=== PATIENT | female | born 1970 | race Caucasian/White ===

== ENCOUNTER 2016-04-13 10:36 | Emergency (ER) | payer OTHER ==
[~2016-04-13] VITALS: Ht 165.1 cm; Wt 92.9 kg
[~2016-04-13 10:36] MED LIST: DOXY100C2 PO
[2016-04-13 10:41] VITALS: TEMP 36.5; Ht 165.1 cm; Wt 92.9 kg
[2016-04-13 11:36] VITALS: BP 141/76; PULSE 76; O2SAT 97
--- NOTE | 2016-04-14 07:50 | EMERGENCY ROOM VISIT NOTE ---
History First contact with patient: 10:56 Chief Complaint: KNEEPAIN Stated Complaint: RT KNEE/ANKLE PAIN W/NUMBNESS IN TOES History of Present Illness The patient is a 45 year old female who presents to the Emergency Room with complaints of medial right knee pain extending to the medial gunn and great toe. She notes a decrease sensation in the dorsum of the great toe and medial foot, but no true numbness. No trauma that she is aware. She denies any knee swelling. No loss of motion. She does have a history of lumbar back issues but denies any current pain. Pain does not seem to be worse with weight- bearing or activity. No prior history of similar discomfort. No other complaints. No treatment. Review of Systems REVIEW OF SYSTEM: HEENT: No dizziness, visual problems, hearing loss, or tinnitus. There is no difficulty swallowing and no oral lesions are present. PULMONARY: No cough, shortness of breath, sputum production or hemoptysis. CARDIOVASCULAR: No chest pain, palpitations, shortness of breath or peripheral edema. GASTROINTESTINAL: No diarrhea, constipation, nausea, vomiting, or abdominal pain. GENITOURINARY: No dysuria, frequency, urgency or nocturia. NEUROLOGIC: No weakness, muscle tenderness, epilepsy or history of neurological problems. MUSCULOSKELETAL: No history of joint tenderness/swelling. No history of arthritis or arthralgias. SKIN: No rashes or lesions. PSYCHIATRIC: Positive history of depression. ENDOCRINE: No history of diabetes, thyroid disorders, or abnormal hair growth. Past Medical/Surgical History Medical Problems: (1) Depression (2) Hysterectomy (3) Kidney stone Significant for hypertension, skin problems, history of pneumonia, asthma. previous surgeries: Hysterectomy Family History Diabetes mellitus FH: back pain Also history of heart disease, hypertension, cancer, lung disease, gallbladder disease, kidney stones, and seizures. Father is . Social History Smoking Status: Current Every Day Smoker Smokeless Tobacco Use: No Alcohol Use: none Drug Use: none Marital Status: Housing Status: lives with family Occupation Status: unemployed Current/Historical Medications No Active Prescriptions or Reported Meds Allergies Coded Allergies: Hydromorphone (Verified Adverse Reaction, Mild, LIGHTHEADED AND VOMITING, 01/30/16) Physical Exam Vital Signs Date Time Temp Pulse Resp B/P Pulse Ox O2 Delivery O2 Flow Rate FiO2 04/13/16 11:36 76 18 141/76 97 1/7/17 10:41 36.5 88 16 158/84 96 Room Air Pain Rating (0-10): 7.0 Physical Exam Gen.: Well-developed, well-nourished, middle-aged white female, in no acute distress. Sitting on a bed. Alert and oriented. Skin:Warm and dry with good turgor. No rashes or lesions. No ecchymosis or erythema. The patient is not diaphoretic. No abrasions. Musculoskeletal: Right knee evaluation shows no intra-articular effusion. No redness or warmth. Stable collateral ligaments. Stable cruciate ligaments. No pain with palpation over the medial or lateral joint line. She does have some discomfort with palpation over her biceps femoris tendon. No pain with circumduction testing or Sammie testing. Strength is 5/5 quad tone. She is able to form a straight leg raise. Intact motor function of the ankle. No discomfort with palpation over the greater trochanter. Neurologic: Gross sensation is intact across the right leg by soft touch. Decreased subjective sensation across the L4 dermatome on the gunn and dorsal foot. Peripheral pulses are 2+. Medical Decision & Procedures ED Course Patient was educated regarding today's findings. Conservative care measures were discussed. She was reassured that I do not suspect her symptoms to be related to her. She has more radicular type symptoms and they're likely coming from the L4 nerve root on the right side. Patient may benefit from physical therapy. She will follow-up with her spine doctor to discuss further care. She may use Aleve 2 tablets twice a day with food to start. Option of prednisone was also discussed. Return to the ED for any worsening symptoms, or loss of bowel or bladder control. Medical Decision Possibility of disc injury, spondylolisthesis, spondylolysis, meniscal injury, ligamentous injury, and sciatica were considered, among others Impression Primary Impression: Lumbar radiculopathy, right Departure Information Dispostion Home / Self-Care Condition GOOD Prescriptions No Active Prescriptions or Reported Meds Referrals Sreedhar Dee D.O. Forms HOME CARE DOCUMENTATION FORM, TYLENOL USE, IMPORTANT VISIT INFORMATION Patient Instructions A Signature Page, [facility] Additional Instructions Aleve 2 tablets twice a day with food [facility] to discuss physical therapy referral Return to the ED for any acute changes or worsening of symptoms
== END 2016-04-13 11:37 | disposition home or self-care (01) ==
LOC: C.EDB 10:38 → C.EDD 11:37
DX: M54.16 Radiculopathy, lumbar region (principal); I10 Essential (primary) hypertension; F32.9 Major depressive disorder, single episode, unspecified; J45.909 Unspecified asthma, uncomplicated; F17.200 Nicotine dependence, unspecified, uncomplicated; Z87.442 Personal history of urinary calculi; Z90.710 Acquired absence of both cervix and uterus; Z88.5 Allergy status to narcotic agent; Z83.3 Family history of diabetes mellitus; Z82.49 Family history of ischemic heart disease and other diseases of the circulatory system; Z83.79 Family history of other diseases of the digestive system; Z82.0 Family history of epilepsy and other diseases of the nervous system; Z80.9 Family history of malignant neoplasm, unspecified

== ENCOUNTER 2016-04-17 15:52 | Emergency (ER) | payer OTHER ==
[~2016-04-17] VITALS: Ht 165.1 cm; Wt 92.1 kg
[2016-04-17 15:59] VITALS: TEMP 36.6; Ht 165.1 cm; Wt 92.1 kg
[2016-04-17 17:15] VITALS: O2SAT 97
[2016-04-17 17:30] LABS: HEMATOCRIT 44.2 % (37-47); MEAN CELL VOLUME 83.7 fL (80-100); MEAN CORPUSCULAR HGB CONC 34.6 g/dl (32-36); MEAN PLATELET VOLUME 10.5 fL (7.4-10.4); PLATELET COUNT 197 K/uL (130-400); RED BLOOD COUNT 5.28 M/uL (4.2-5.4); WHITE BLOOD COUNT 6.57 K/uL (4.8-10.8)
[2016-04-17] MEDS ORDERED: GI COCKTAIL PO STA (17:36)
[2016-04-17 17:40] LABS: PROTHROMBIN TIME (PATIENT) 10.5 SECONDS (9.0-12.0)
[2016-04-17] MEDS ORDERED: ALUMINUM/MAGNESIUM SUSP 30 ML UDC ONE (17:46)
[2016-04-17] MEDS ORDERED: LIDOCAINE HCL 2% VISC SOLN 20 ML UDC ONE (17:46)
--- NOTE | 2016-04-17 17:50 | DIAGNOSTIC IMAGING REPORT ---
CHEST ONE VIEW PORTABLE HISTORY: Atypical chest pain. Short of breath. COMPARISON: Chest 07/14/2015. FINDINGS: The lungs are clear. Cardiac silhouette is normal in size. No pleural effusions. No pneumothorax. IMPRESSION: No acute process. Electronically signed by: Chintan Billy M.D. 04/17/2016 5:48 PM Dictated Date/Time: 04/17/2016 5:46 PM
[2016-04-17 17:51] LABS: ALT/SGPT 21 U/L (12-78); BLOOD UREA NITROGEN 13 mg/dl (7-18); BUN/CREATININE RATIO 13.1 (10-20); CALCIUM 9.6 mg/dl (8.5-10.1); CARBON DIOXIDE 26 mmol/L (21-32); CHLORIDE 106 mmol/L (98-107); GLUCOSE 94 mg/dl (70-99); SODIUM 142 mmol/L (136-145)
[2016-04-17 17:55] LABS: ALB/GLOB RATIO 1.1 (0.9-2); ALKALINE PHOSPHATASE 88 U/L (45-117); AST/SGOT 18 U/L (15-37)
[2016-04-17] MEDS ORDERED: HYDROCODONE/ACETAMOPHEN 5/325MG TAB PO STA (20:17)
[2016-04-17] MEDS ORDERED: NORCO 5/325MG HOME PACK PO ONE (20:30)
[2016-04-17 20:48] VITALS: BP 122/88; PULSE 62; O2SAT 96
--- NOTE | 2016-04-17 22:43 | EMERGENCY ROOM VISIT NOTE ---
History Report prepared by Leonela: Hua Barry Under the Supervision of: Dr. Case Alston M.D. First contact with patient: 17:31 Chief Complaint: CHEST PAIN Stated Complaint: CHEST PAIN, SOB, NUMBNESS, NAUSEA Nursing Triage Summary: Pt stated that she has been experincing chest pain since last evening. Pt thought it was just indigestion and took prilosec. Chest pain was not relieved. Pt states the pain is an 8 out of 10 feels stabbing. Pt stated the pain radiates to her left shoulder and her left arm feels numb. Pt also states that she has nausea. History of Present Illness The patient is a 45 year old female who presents to the Emergency Room with complaints of constant stabbing chest pain starting a couple days ago. The patient currently rates her discomfort as an 8/10 in severity. The patient states that she is additionally having left arm and shoulder pain as well. The patient states that she thought it was indigestion, and she took Rolaids. Pt denies LOC, headache, fevers, chills, diaphoresis, visual changes, neck pain, breathing difficulties, nausea, vomiting, abdominal pain, back pain, melena, hematochezia, urinary symptoms, numbness, weakness, lymphadenopathy, rash, or other complaints. Source of History: patient Onset: a couple days ago Position: chest Symptom Intensity: 8/10 Quality: stabbing Timing: constant Note: Associated Symptoms: Left shoulder and left arm pain Review of Systems See HPI for pertinent positives and negatives. A total of ten systems were reviewed and were otherwise negative. Past Medical & Surgical Medical Problems: (1) Depression (2) Hysterectomy (3) Kidney stone Family History Cancer Diabetes mellitus FH: back pain Gallbladder disease Heart disease Hypertension Kidney disease Kidney stones Lung disease Seizures Social History Smoking Status: Current Every Day Smoker Alcohol Use: none Drug Use: none Marital Status: Housing Status: lives with family Occupation Status: unemployed Current/Historical Medications No Active Prescriptions or Reported Meds Allergies Coded Allergies: Hydromorphone (Verified Adverse Reaction, Mild, LIGHTHEADED AND VOMITING, 04/17/16) Physical Exam Vital Signs Date Time Temp Pulse Resp B/P Pulse Ox O2 Delivery O2 Flow Rate FiO2 04/17/16 20:48 62 21 122/88 96 Room Air 04/17/16 19:28 56 22 143/80 97 Room Air 04/17/16 17:53 59 153/82 95 Room Air 04/17/16 17:31 97 Room Air 04/17/16 17:25 58 04/17/16 17:15 97 Room Air 04/17/16 17:12 98 Room Air 04/17/16 15:59 36.6 61 18 169/100 98 Room Air Physical Exam GENERAL: Awake, alert, well-appearing, in no distress HENT: Normocephalic, atraumatic. Oropharynx unremarkable. EYES: Normal conjunctiva. Sclera non-icteric. NECK: Supple. No nuchal rigidity. FROM. No JVD. RESPIRATORY: Clear to auscultation. CARDIAC: Regular rate, normal rhythm. Extremities warm and well perfused. Pulses equal. ABDOMEN: Soft, non-distended. No tenderness to palpation. No rebound or guarding. No masses. RECTAL: Deferred. MUSCULOSKELETAL: Chest examination reveals no tenderness. The back is symmetrical on inspection without obvious abnormality. There is no CVA tenderness to palpation. No joint edema. LOWER EXTREMITIES: Calves are equal size bilaterally and non-tender. No edema. No discoloration. NEURO: Normal sensorium. No sensory or motor deficits noted. SKIN: No rash or jaundice noted. Medical Decision & Procedures ER Provider Diagnostic Interpretation: X-ray: Per my interpretation, radiologist review. CHEST ONE VIEW PORTABLE HISTORY: Atypical chest pain. Short of breath. COMPARISON: Chest 07/14/2015. FINDINGS: The lungs are clear. Cardiac silhouette is normal in size. No pleural effusions. No pneumothorax. IMPRESSION: No acute process. Electronically signed by: Chintan Billy M.D. 04/17/2016 5:48 PM Dictated Date/Time: 04/17/2016 5:46 PM Laboratory Results 04/17/16 17:16 04/17/16 17:16 Test 04/17/16 17:16 04/17/16 17:20 04/17/16 18:51 Red Blood Count 5.28 M/uL (4.2-5.4) Mean Corpuscular Volume 83.7 fL (80-100) Mean Corpuscular Hemoglobin 29.0 pg (25-34) Mean Corpuscular Hemoglobin Concent 34.6 g/dl (32-36) RDW Standard Deviation 39.0 fL (36.4-46.3) RDW Coefficient of Variation 13.0 % (11.5-14.5) Mean Platelet Volume 10.5 fL (7.4-10.4) Prothrombin Time 10.5 SECONDS (9.0-12.0) Prothromb Time International Ratio 1.0 (0.9-1.1) Activated Partial Thromboplast Time 27.1 SECONDS (21.0-31.0) Partial Thromboplastin Ratio 1.0 D-Dimer 420 ug/L FEU (0-500) Anion Gap 10.0 mmol/L (3-11) Est Creatinine Clear Calc Drug Dose 79.7 ml/min Estimated GFR () 78.8 Estimated GFR (Non- 68.0 BUN/Creatinine Ratio 13.1 (10-20) Calcium Level 9.6 mg/dl (8.5-10.1) Total Bilirubin 0.4 mg/dl (0.2-1) Aspartate Amino Transf (AST/SGOT) 18 U/L (15-37) Alanine Aminotransferase (ALT/SGPT) 21 U/L (12-78) Alkaline Phosphatase 88 U/L (45-117) Total Creatine Kinase 76 U/L (26-192) Creatine Kinase MB < 0.5 ng/ml (0.5-3.6) Creatine Kinase MB Ratio (0-3.0) Total Protein 7.8 gm/dl (6.4-8.2) Albumin 4.0 gm/dl (3.4-5.0) Globulin 3.8 gm/dl (2.5-4.0) Albumin/Globulin Ratio 1.1 (0.9-2) Bedside Troponin I 0.000 ng/ml (0-0.045) Troponin I < 0.015 ng/ml (0-0.045) Laboratory results reviewed by me Medications Administered Medications (Trade) Dose Ordered Sig/Heriberto Route Start Time Stop Time Status Last Admin Dose Admin Al Hydroxide/Mg Hydroxide (Maalox Susp) 30 ml STK-MED ONCE .ROUTE 04/17/16 17:46 04/17/16 17:48 DC 04/17/16 17:50 30 ML Lidocaine HCl (Viscous Lidocaine 2% Soln) 20 ml STK-MED ONCE .ROUTE 04/17/16 17:46 04/17/16 17:48 DC 04/17/16 17:49 20 ML Acetaminophen/ Hydrocodone Bitart ([place] 5/325mg Home Pack) 1 homepack UD ONCE PO 04/17/16 20:30 04/17/16 20:31 DC 04/17/16 20:46 1 HOMEPACK Acetaminophen/ Hydrocodone Bitart ([place] 5/325 Tab) 1 tab NOW STAT PO 04/17/16 20:17 04/17/16 20:18 DC 04/17/16 20:46 1 TAB ECG Indication: chest pain Rate (beats per minute): 65 Rhythm: normal sinus Findings: no acute ischemic change, no ectopy ED Course 173: The patient was evaluated in room B5. A complete history and physical exam was performed. 173: GI Cocktail 24ml PO 174: Viscous Lidocaine 2% Soln 20ml, Maalox Susp 30ml 2017: [place] 5/325 Tab 1 Tab PO 2018: I reevaluated the patient. Discussed results and discharge instructions: She verbalized understanding and agreement. The patient is ready for discharge. 2030: [place] 5/325 1 Homepack PO Medical Decision Triage Nursing notes reviewed. The patient's presentation and history were concerning for chest pain. Etiologies such as cardiac ischemia, aortic dissection, pulmonary embolism, pneumonia, pneumothorax, musculoskeletal, infections, gastrointestinal, as well as others were entertained. The patient presented to the emergency department complaining of chest pain that has been present for over 2 days. It is left-sided. It radiates to the left shoulder. She underwent a workup. Her ECG was unremarkable. Chest x-ray was negative. Mediastinum was normal. The patient had a normal CBC, chemistry panel, CK, troponin, coags, and d-dimer. A repeat troponin was 0 as well. The patient was given a GI cocktail which did not help a lot. I discussed conservative management with her. I will give her a dose of [place] as well as a home pack to use just in case she has more pain this evening. She was in agreement. I suspect that this may be chest wall or possibly pleurisy in nature. She has had no recent illnesses or flu symptoms to suggest pneumonia. She will follow-up closely as an outpatient. If she worsens in any way she will come back to the emergency department for reevaluation. I gave my usual and customary discussion regarding this issue. Return instructions were outlined and the patient was discharged in stable condition. The chart was completed utilizing [employer] Speech voice recognition software. Grammatical errors, random word insertions, pronoun errors, and incomplete sentences are an occasional consequence of this system due to software limitations, ambient noise, and hardware issues. Any formal questions or concerns about the content, text, or information contained within the body of this dictation should be directly addressed to the physician for clarification. Impression Primary Impression: Left sided chest pain Scribe Attestation The scribe's documentation has been prepared under my direction and personally reviewed by me in its entirety. I confirm that the note above accurately reflects all work, treatment, procedures, and medical decision making performed by me. Departure Information Dispostion Home / Self-Care Prescriptions No Active Prescriptions or Reported Meds Referrals Lakia Alvarez D.O. (PCP) Forms HOME CARE DOCUMENTATION FORM, IMPORTANT VISIT INFORMATION, Work Instructions Patient Instructions A Signature Page, My [facility] Additional Instructions CHEST PAIN INSTRUCTIONS: DO NOT drive, drink alcohol, operate machinery, or perform dangerous activities today. You were given medications in the ER that can affect your ability to safely function or operate a vehicle. Hydrocodone/acetaminophen 5/325mg: Take 1-2 pills every 6 hours as needed for pain. Avoid additional Acetaminophen/Tylenol, alcohol, operating machinery or dangerous equipment, working on ladders or roofs, DRIVING, or situations where being under the influence may be dangerous. It is recommended to use a stool softener such as Colace, 100mg twice daily while taking this medication to avoid constipation. Ibuprofen(Motrin, Advil) may be used for fever or pain. Use 600mg every six hours as needed. Take with food. Avoid using more than 2400mg in a 24 hour period. Do not use 2400mg per day for more than three consecutive days without physician direction. Prolonged inappropriate use can lead to stomach upset or ulcers. Rest and drink plenty of fluids as tolerated. Continue current medications. Avoid strenuous activities and anything that worsens your pain. Resume normal activities once your symptoms resolve. Return to the ER immediately for worsening or persistent chest pain, abdominal pain, vomiting, fevers, chest pains, difficulty breathing, worsening of your condition, or as needed. Follow up with your primary physician in 2-3 days for a recheck of your current condition.
== END 2016-04-17 20:50 | disposition home or self-care (01) ==
LOC: C.EDB 15:53
DX: R07.89 Other chest pain (principal); M25.512 Pain in left shoulder; M79.602 Pain in left arm; F17.200 Nicotine dependence, unspecified, uncomplicated; R20.2 Paresthesia of skin; R11.0 Nausea

== ENCOUNTER 2016-07-12 17:27 | Emergency (ER) | payer OTHER ==
[~2016-07-12] VITALS: Ht 165.1 cm; Wt 90.2 kg
[2016-07-12 17:33] VITALS: TEMP 36.5; Ht 165.1 cm; Wt 90.2 kg
[2016-07-12 19:15] VITALS: O2SAT 97
[2016-07-12] MEDS ORDERED: PRVHFAIN INH (19:30)
[2016-07-12 19:34] LABS: BASO % 0.3 %; BASO ABS # 0.03 K/uL (0-0.2); COMPLETE YES; EOS % 0.6 %; IG% 0.2 %; LYMPH % 31.3 %; MEAN CELL VOLUME 82.7 fL (80-100); MEAN CORPUSCULAR HGB CONC 35.1 g/dl (32-36); MEAN PLATELET VOLUME 10.5 fL (7.4-10.4); MONO % 5.6 %; PLATELET COUNT 196 K/uL (130-400); RED BLOOD COUNT 4.96 M/uL (4.2-5.4); WHITE BLOOD COUNT 8.63 K/uL (4.8-10.8)
[2016-07-12] MEDS ORDERED: HYDROCODONE/ACETAMOPHEN 5/325MG TAB PO STA (19:40)
[2016-07-12 19:52] LABS: BUN/CREATININE RATIO 18.3 (10-20); CALCIUM 9.4 mg/dl (8.5-10.1); CREATININE 0.91 mg/dl (0.60-1.20); POTASSIUM 4.1 mmol/L (3.5-5.1)
[2016-07-12 19:54] LABS: PREG INTERNAL NEGATIVE QC NEG CLEAR BACKGROUND; PREG INTERNAL POSITIVE QC POS CONTROL LINE
--- NOTE | 2016-07-12 19:55 | DIAGNOSTIC IMAGING REPORT ---
CHEST ONE VIEW PORTABLE HISTORY: Atypical CHEST PAIN COMPARISON: Chest 04/17/2016. FINDINGS: The lungs are clear. Cardiac silhouette is normal in size. No pleural effusions. No pneumothorax. IMPRESSION: No acute process. Electronically signed by: Chintan Billy M.D. 07/12/2016 7:54 PM Dictated Date/Time: 07/12/2016 7:53 PM
[2016-07-12 19:57] LABS: CKMB/CK RATIO 0.8 (0-3.0)
[2016-07-12] MEDS ORDERED: OPTIRAY 320 IV PRN (20:15)
--- NOTE | 2016-07-12 20:50 | DIAGNOSTIC IMAGING REPORT ---
CHEST CTA for PULMONARY ARTERIES CT DOSE: 388.72 mGy.cm HISTORY: Atypical chest pain. TECHNIQUE: Multiaxial CT images of the chest were performed following the intravenous administration of contrast to evaluate the pulmonary arteries. Maximal intensity projection images were also obtained. COMPARISON STUDY: Chest CTA 07/14/2015. FINDINGS: No evidence for an aortic dissection or pulmonary embolus. The liver, spleen, and visualized adrenal glands are unremarkable. Stable thyroid nodules with the largest on the right measuring 1 cm. No mediastinal or hilar lymphadenopathy. The heart is normal in size. No pleural or pericardial effusions. No pneumothorax. No focal lung consolidations to suggest pneumonia. There are few stable subcentimeter nodules within the right lung. Dominant nodule within the right lower lobe on image 43 measures 3.6 mm. IMPRESSION: 1. No evidence for pulmonary embolus. 2. Stable multinodular thyroid gland. 3. Stable tiny pulmonary nodules. Electronically signed by: Chintan Billy M.D. 07/12/2016 8:48 PM Dictated Date/Time: 07/12/2016 8:41 PM
[2016-07-12 22:42] VITALS: BP 105/65; PULSE 62; O2SAT 96
--- NOTE | 2016-07-13 00:35 | EMERGENCY ROOM VISIT NOTE ---
History Report prepared by Piperibe: Mayi Maldonado Under the Supervision of: Dr. Case Alston M.D. First contact with patient: 19:12 Chief Complaint: CHEST PAIN Stated Complaint: CHEST/LOWER BACK PAIN Nursing Triage Summary: Pt reports midsternal chest pain now moving into left side of chest/back. Arm feels numb. Pain began this 1300 while at work. Denies cardiac hx. Pt states, " I just feel yucky. I had this pain before about 4-5 yrs ago and they did a stress test." History of Present Illness The patient is a 45 year old female who presents to the Emergency Room with complaints of persistent midsternal chest pain that began around 1300 today. 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 She rates her current discomfort as an 8/10. She notes the pain is now radiating into her left side and back. Her left arm also feels numb and she complains of some minor jaw pain and pain in her left ear. She denies any previous cardiac history but reports she has experienced similar pain in the past and underwent a stress test last summer that showed no abnormalities. The patient admits she has recently been around a granddaughter who currently has pneumonia and notes she hasn't been sleeping well because her granddaughter is up all night coughing. She also denies any major cardiac history in her family. The patient denies LOC, headache, fevers, chills, diaphoresis, visual changes, neck pain, breathing difficulties, nausea, vomiting, abdominal pain, melena, hematochezia, urinary symptoms, weakness, lymphadenopathy, rash, or other complaints. Source of History: patient Onset: 1300 today Position: chest Symptom Intensity: 8/10 Timing: other (persistent) Associated Symptoms: + numbness (left arm) Review of Systems See HPI for pertinent positives and negatives. A total of ten systems were reviewed and were otherwise negative. Past Medical & Surgical Medical Problems: (1) Depression (2) Hysterectomy (3) Kidney stone Family History Cancer Diabetes mellitus FH: back pain Gallbladder disease Heart disease Hypertension Kidney disease Kidney stones Lung disease Seizures Social History Smoking Status: Current Every Day Smoker Alcohol Use: none Drug Use: none Marital Status: Housing Status: lives with family Occupation Status: unemployed Current/Historical Medications Scheduled PRN Albuterol (Ventolin Hfa), 2 PUFFS INH QID PRN for Shortness of Breath Allergies Coded Allergies: Hydromorphone (Verified Adverse Reaction, Mild, LIGHTHEADED AND VOMITING, 04/17/16) Physical Exam Vital Signs Date Time Temp Pulse Resp B/P Pulse Ox O2 Delivery O2 Flow Rate FiO2 07/12/16 22:42 62 18 105/65 96 Room Air 07/12/16 22:28 69 07/12/16 21:30 150/86 07/12/16 21:27 60 17 95 07/12/16 21:00 148/82 07/12/16 20:57 59 17 96 07/12/16 20:31 149/76 07/12/16 19:49 159/83 07/12/16 19:27 61 19 95 07/12/16 19:15 97 Room Air 07/12/16 19:15 66 07/12/16 19:11 61 18 178/109 97 Room Air 07/12/16 19:10 178/109 07/12/16 17:33 36.5 91 20 176/99 100 Room Air Physical Exam GENERAL: Awake, alert, well-appearing, in no distress HENT: Normocephalic, atraumatic. Oropharynx unremarkable. EYES: Normal conjunctiva. Sclera non-icteric. NECK: Supple. No nuchal rigidity. FROM. No JVD. RESPIRATORY: Clear to auscultation. CARDIAC: Regular rate, normal rhythm. Extremities warm and well perfused. Pulses equal. ABDOMEN: Soft, non-distended. No tenderness to palpation. No rebound or guarding. No masses. RECTAL: Deferred. MUSCULOSKELETAL: Chest examination reveals no tenderness. The back is symmetrical on inspection without obvious abnormality. There is no CVA tenderness to palpation. Tenderness over left scapula. No joint edema. LOWER EXTREMITIES: Calves are equal size bilaterally and non-tender. No edema. No discoloration. NEURO: Normal sensorium. No sensory or motor deficits noted. SKIN: No rash or jaundice noted. Medical Decision & Procedures ER Provider Diagnostic Interpretation: This X-Ray was reviewed and interpreted by myself and the radiologist. CHEST ONE VIEW PORTABLE HISTORY: Atypical CHEST PAIN COMPARISON: Chest 04/17/2016. FINDINGS: The lungs are clear. Cardiac silhouette is normal in size. No pleural effusions. No pneumothorax. IMPRESSION: No acute process. Electronically signed by: Chintan Billy M.D. 07/12/2016 7:[address] scan was reviewed and interpreted by the radiologist and reviewed by myself. CHEST CTA for PULMONARY ARTERIES CT DOSE: 388.72 mGy.cm HISTORY: Atypical chest pain. TECHNIQUE: Multiaxial CT images of the chest were performed following the intravenous administration of contrast to evaluate the pulmonary arteries. Maximal intensity projection images were also obtained. COMPARISON STUDY: Chest CTA 07/14/2015. FINDINGS: No evidence for an aortic dissection or pulmonary embolus. The liver, spleen, and visualized adrenal glands are unremarkable. Stable thyroid nodules with the largest on the right measuring 1 cm. No mediastinal or hilar lymphadenopathy. The heart is normal in size. No pleural or pericardial effusions. No pneumothorax. No focal lung consolidations to suggest pneumonia. There are few stable subcentimeter nodules within the right lung. Dominant nodule within the right lower lobe on image 43 measures 3.6 mm. IMPRESSION: 1. No evidence for pulmonary embolus. 2. Stable multinodular thyroid gland. 3. Stable tiny pulmonary nodules. Electronically signed by: Chintan Billy M.D. 07/12/2016 8:48 PM Laboratory Results 07/12/16 19:15 Red Blood Count 4.96, Mean Corpuscular Volume 82.7, Mean Corpuscular Hemoglobin 29.0, Mean Corpuscular Hemoglobin Concent 35.1, Mean Platelet Volume 10.5, Neutrophils (%) (Auto) 62.0, Lymphocytes (%) (Auto) 31.3, Monocytes (%) (Auto) 5.6, Eosinophils (%) (Auto) 0.6, Basophils (%) (Auto) 0.3, Neutrophils # (Auto) 5.35, Lymphocytes # (Auto) 2.70, Monocytes # (Auto) 0.48, Eosinophils # (Auto) 0.05, Basophils # (Auto) 0.03 07/12/16 19:15 Test 07/12/16 19:15 07/12/16 19:21 07/12/16 21:38 White Blood Count 8.63 K/uL (4.8-10.8) Red Blood Count 4.96 M/uL (4.2-5.4) Hemoglobin 14.4 g/dL (12.0-16.0) Hematocrit 41.0 % (37-47) Mean Corpuscular Volume 82.7 fL (80-100) Mean Corpuscular Hemoglobin 29.0 pg (25-34) Mean Corpuscular Hemoglobin Concent 35.1 g/dl (32-36) Platelet Count 196 K/uL (130-400) Mean Platelet Volume 10.5 fL (7.4-10.4) Neutrophils (%) (Auto) 62.0 % Lymphocytes (%) (Auto) 31.3 % Monocytes (%) (Auto) 5.6 % Eosinophils (%) (Auto) 0.6 % Basophils (%) (Auto) 0.3 % Neutrophils # (Auto) 5.35 K/uL (1.4-6.5) Lymphocytes # (Auto) 2.70 K/uL (1.2-3.4) Monocytes # (Auto) 0.48 K/uL (0.11-0.59) Eosinophils # (Auto) 0.05 K/uL (0-0.5) Basophils # (Auto) 0.03 K/uL (0-0.2) RDW Standard Deviation 39.5 fL (36.4-46.3) RDW Coefficient of Variation 13.0 % (11.5-14.5) Immature Granulocyte % (Auto) 0.2 % Immature Granulocyte # (Auto) 0.02 K/uL (0.00-0.02) Anion Gap 7.0 mmol/L (3-11) Est Creatinine Clear Calc Drug Dose 86.6 ml/min Estimated GFR () 88.3 Estimated GFR (Non- 76.2 BUN/Creatinine Ratio 18.3 (10-20) Calcium Level 9.4 mg/dl (8.5-10.1) Total Bilirubin 0.4 mg/dl (0.2-1) Direct Bilirubin 0.1 mg/dl (0-0.2) Aspartate Amino Transf (AST/SGOT) 11 U/L (15-37) Alanine Aminotransferase (ALT/SGPT) 21 U/L (12-78) Alkaline Phosphatase 90 U/L (45-117) Total Creatine Kinase 144 U/L (26-192) Creatine Kinase MB 1.2 ng/ml (0.5-3.6) Creatine Kinase MB Ratio 0.8 (0-3.0) Total Protein 7.8 gm/dl (6.4-8.2) Albumin 4.1 gm/dl (3.4-5.0) Lipase 134 U/L (73-393) Human Chorionic Gonadotropin, Qual NEG (NEG) Bedside D-Dimer > 450 ng/mlFEU (0-450) Bedside Troponin I 0.000 ng/ml (0-0.045) Laboratory results reviewed by me Medications Administered Medications (Trade) Dose Ordered Sig/Heriberto Route Start Time Stop Time Status Last Admin Dose Admin Acetaminophen/ Hydrocodone Bitart (Donie 5/325 Tab) 1 tab NOW STAT PO 07/12/16 19:40 07/12/16 19:41 DC 07/12/16 19:50 1 TAB ECG Indication: chest pain Rate (beats per minute): 72 Rhythm: normal sinus (normal sinus rhythm) Findings: no acute ischemic change, no ectopy, other (low voltage QRS) Change: 2nd EKG performed on 07/12/16: Sinus bradycardia with sinus arrhythmia, no acute ischemia, no ectopy. ED Course 1937: The patient was evaluated in room A2. A complete history and physical exam was performed. 1939: Donie 5/325 mg 1 tab PO. 2209: I reevaluated the patient. She is feeling well and resting comfortably. 2239: I reevaluated the patient. She is feeling better. I discussed her results and discharge instructions and she verbalized complete understanding and agreement. Medical Decision Triage Nursing notes reviewed. The patient's presentation and history were concerning for chest pain. Etiologies such as musculoskeletal, cardiac ischemia, aortic dissection, pulmonary embolism, pneumonia, pneumothorax, infections, gastrointestinal, as well as others were entertained. The patient was evaluated. Clinically she looked well. I see the patient for similar issues in the past. She does note that she was doing a lot of lifting at work. The patient was given hydrocodone for discomfort. Her ECG was negative 2. Her troponin was 02. D-dimer was minimally elevated and CT imaging of the chest was performed after a negative chest x-ray. CT imaging of the chest showed chronic findings. Nothing acute. No pulmonary embolus or dissection. The patient was reassessed. Her CBC, chemistry panel, LFTs, and lipase were unremarkable. The patient is doing very well. I discussed conservative management with her. She feels very comfortable with this. This seems low likelihood of cardiac etiology. The patient also notes having a stress test done last year without any difficulty for similar type pains. I gave my usual and customary discussion regarding this issue. By the evaluation outlined above other emergent etiologies such as those listed in the differential, as well as others, were deemed relatively unlikely. The patient and significant other were informed about the findings as listed above. All questions were answered and they were pleased with the treatment. Return instructions were outlined and the patient was discharged in stable condition. The patient was referred to her PCP for follow-up this coming week for a recheck of the current condition. The chart was completed utilizing [employer] Speech voice recognition software. Grammatical errors, random word insertions, pronoun errors, and incomplete sentences are an occasional consequence of this system due to software limitations, ambient noise, and hardware issues. Any formal questions or concerns about the content, text, or information contained within the body of this dictation should be directly addressed to the physician for clarification. Impression Primary Impression: Left sided chest pain Scribe Attestation The scribe's documentation has been prepared under my direction and personally reviewed by me in its entirety. I confirm that the note above accurately reflects all work, treatment, procedures, and medical decision making performed by me. Departure Information Dispostion Home / Self-Care Referrals Lakia Alvarez D.O. (PCP) Patient Instructions My [facility] Additional Instructions CHEST PAIN INSTRUCTIONS: DO NOT drive, drink alcohol, operate machinery, or perform dangerous activities today. You were given medications in the ER that can affect your ability to safely function or operate a vehicle. Ibuprofen(Motrin, Advil) may be used for fever or pain. Use 600mg every six hours as needed. Take with food. Avoid using more than 2400mg in a 24 hour period. Do not use 2400mg per day for more than three consecutive days without physician direction. Prolonged inappropriate use can lead to stomach upset or ulcers. (AND/OR) Acetaminophen(Tylenol) may be used for fever or pain. Use 1000mg every six hours as needed. Avoid using more than 4000mg in a 24 hour period. Rest and drink plenty of fluids as tolerated. Continue current medications. Avoid strenuous activities and anything that worsens your pain. Resume normal activities once your symptoms resolve. Return to the ER immediately for worsening or persistent chest pain, abdominal pain, vomiting, fevers, chest pains, difficulty breathing, worsening of your condition, or as needed. Follow up with your primary physician in 3 days for a recheck of your current condition.
== END 2016-07-12 22:47 | disposition home or self-care (01) ==
LOC: C.EDB 17:27 → C.EDA 22:47
DX: R07.9 Chest pain, unspecified (principal); F32.9 Major depressive disorder, single episode, unspecified; F17.200 Nicotine dependence, unspecified, uncomplicated; Z88.5 Allergy status to narcotic agent; Z90.710 Acquired absence of both cervix and uterus; Z87.442 Personal history of urinary calculi; Z80.9 Family history of malignant neoplasm, unspecified; Z83.3 Family history of diabetes mellitus; Z83.79 Family history of other diseases of the digestive system; Z82.49 Family history of ischemic heart disease and other diseases of the circulatory system; Z84.1 Family history of disorders of kidney and ureter; Z82.0 Family history of epilepsy and other diseases of the nervous system

== ENCOUNTER 2016-08-09 16:30 | Emergency (ER) | payer OTHER ==
[~2016-08-09] VITALS: Ht 165.1 cm; Wt 88.2 kg
[~2016-08-09 16:30] MED LIST changes: -DOXY100C2 PO; +PRVHFAIN INH
[2016-08-09 16:35] VITALS: TEMP 37.1; Ht 165.1 cm; Wt 88.2 kg
[2016-08-09] MEDS ORDERED: FLUT0.15 NAE (16:56)
--- NOTE | 2016-08-09 16:56 | EMERGENCY ROOM VISIT NOTE ---
ED Visit Note First contact with patient: 16:42 CHIEF COMPLAINT: knee pain HISTORY OF PRESENT ILLNESS: This 46-year-old female patient presents to the emergency department ambulatory after sustaining an injury to the right knee. The patient states that one week ago at work she felt as though she twisted her knee and had a sharp pain but it seemed to subside until today. She states that she was at work and leaning over a bathtub and felt a sharp pain again in her right knee. The pain persists and has been fairly severe. She states it is very painful with weightbearing and the knee seems to lock up. She rates her discomfort an 8/10. She denies any fevers. The patient denies any other injuries besides their knee. The patient no swelling or bruising. There is pain diffusely over the knee. They rate the pain as sharp and 8/10. The patient states they are not able to walk on it. No numbness or tingling. No previous injuries to this knee. No ankle, foot or hip pain. REVIEW OF SYSTEMS: A 6 system review of systems was completed with positives and pertinent negatives listed in the HPI. ALLERGIES: Hydromorphone MEDICATIONS: The patient states she is supposed to take medications but does not PMH: Patient denies SOCIAL HISTORY: The patient is employed. She lives locally PHYSICAL EXAM: Vital Signs: Reviewed Nurse's notes, vital signs stable. GENERAL : This 46-year-old female, no acute distress, but appears in pain, well- developed, well-nourished. MENTAL STATUS: Alert, oriented to person place and time, and cooperative. MUSCULOSKELETAL: The right knee is minimally swollen. There is no ecchymosis. There is no significant joint effusion present. The patient is tender diffusely over the knee. There is no significant joint line tenderness. The patella does not subluxate. Range of motion is intact but painful. Strength of the quads and hamstrings is 5/5. Harjinder's is negative. Shekhar's and Anterior Drawer tests are negative for obvious laxity. There is no obvious laxity or pain with varus and valgus stressing. The foot and toes are warm and well-perfused. Dorsalis pedis pulse 2+. Sensation to pain and light touch is intact. Capillary refill less than 2 seconds. EMERGENCY DEPARTMENT COURSE: I examined the patient. X-rays of the right knee were reviewed by myself and read by radiology and reveal no fracture or dislocation. The patient was placed in a knee immobilizer under my direction and the position was satisfactory. The patient did not want crutches The patient was discharged home in good condition. DISCHARGE INSTRUCTIONS: Ice and elevate knee for swelling and pain. Wear knee immobilizer when up and about. Ibuprofen 600 mg and Tylenol 1000 mg every 6 hrs for pain. No more than 4 g of Tylenol in 24 hours. Follow-up with Orthopedics for further evaluation and treatment - call for appointment. RIGHT KNEE 3 VIEWS CLINICAL HISTORY: Right knee pain status post trauma COMPARISON: None. DISCUSSION: No fractures or dislocations are visualized. There is no radiographic evidence of a joint effusion. IMPRESSION: No fractures identified. Problem List Medical Problems: (1) Depression Status: Chronic (2) Hysterectomy Status: Resolved (3) Kidney stone Status: Resolved Current/Historical Medications Scheduled Fluticasone Propionate (Nasal) (Flonase Allergy Relief), 1 SPRAY NEREIDA DAILY Scheduled PRN Albuterol (Ventolin Hfa), 2 PUFFS INH QID PRN for Shortness of Breath Allergies Coded Allergies: Hydromorphone (Verified Adverse Reaction, Mild, LIGHTHEADED AND VOMITING, 08/09/16) Vital Signs Date Time Temp Pulse Resp B/P Pulse Ox O2 Delivery O2 Flow Rate FiO2 08/09/16 17:49 64 138/87 97 Room Air 08/09/16 16:35 37.1 85 18 157/100 99 Room Air Medications Administered Medications (Trade) Dose Ordered Sig/Heriberto Route Start Time Stop Time Status Last Admin Dose Admin Ibuprofen (Motrin Tab) 600 mg NOW STAT PO 08/09/16 17:37 08/09/16 17:39 DC 08/09/16 18:00 600 MG Departure Information Impression Primary Impression: Knee pain Dispostion Home / Self-Care Condition GOOD Referrals Lakia Alvarez D.O. (PCP) Asher Taveras M.D. Forms HOME CARE DOCUMENTATION FORM, IMPORTANT VISIT INFORMATION, Work Instructions Additional Instructions: Must wear knee immobilizer with limited use of the leg for the next 1 week Patient Instructions ED Sprain Knee, My [facility] Additional Instructions Ice and elevate knee for swelling and pain. Wear knee immobilizer when up and about. Ibuprofen 600 mg and Tylenol 1000 mg every 6 hrs for pain. No more than 4 g of Tylenol in 24 hours. Follow-up with Orthopedics for further evaluation and treatment - call for appointment.
--- NOTE | 2016-08-09 17:26 | DIAGNOSTIC IMAGING REPORT ---
RIGHT KNEE 3 VIEWS CLINICAL HISTORY: Right knee pain status post trauma COMPARISON: None. DISCUSSION: No fractures or dislocations are visualized. There is no radiographic evidence of a joint effusion. IMPRESSION: No fractures identified. Electronically signed by: Alexsander Shaw M.D. 08/09/2016 5:24 PM Dictated Date/Time: 08/09/2016 5:24 PM
[2016-08-09] MEDS ORDERED: IBUPROFEN 600 MG TAB PO STA (17:37)
[2016-08-09 17:49] VITALS: BP 138/87; PULSE 64; O2SAT 97
== END 2016-08-09 18:03 | disposition home or self-care (01) ==
LOC: C.EDB 16:31 → C.EDD 18:03
DX: M25.561 Pain in right knee (principal); F32.9 Major depressive disorder, single episode, unspecified; Z90.710 Acquired absence of both cervix and uterus; Z87.442 Personal history of urinary calculi; Z88.5 Allergy status to narcotic agent

== ENCOUNTER 2016-09-26 16:05 | Emergency (ER) | payer OTHER ==
[~2016-09-26] VITALS: Ht 165.1 cm; Wt 85.9 kg
[~2016-09-26 16:05] MED LIST changes: +FLUT0.15 NAE
[2016-09-26 16:27] VITALS: TEMP 36.7; Ht 165.1 cm; Wt 85.9 kg
[2016-09-26] MEDS ORDERED: AMT25 PO (16:56)
[2016-09-26] MEDS ORDERED: ONDANSETRON INJ 2 MG/ML 2 ML VIAL IV STA ×2 (17:15)
[2016-09-26] MEDS ORDERED: SODIUM CHLORIDE 0.9% 1000ML 1,000 ML IV STA ×2 (17:15)
--- NOTE | 2016-09-26 17:38 | EMERGENCY ROOM VISIT NOTE ---
History Report prepared by Leonela: Juan Martinez Under the Supervision of: Dr. Jorge Crenshaw D.O. First contact with patient: 17:10 Chief Complaint: FACIAL PAIN/INJURY Stated Complaint: RIGHT JAW, EAR/FACE PAIN AND NUMBNESS W/HEADACHE History of Present Illness The patient is a 46 year old female who presents to the Emergency Room with complaints of constant facial pain beginning this morning. The patient states that she also losses her balance when she walks and is experiencing diaphoresis. She reports that she took two Aleve this morning, and her symptoms went away. The patient notes that it does not hurt to turn her head or open her mouth. She denies nausea, vomiting, weakness to the extremities, and headaches. The patient states that she has had symptoms like this before, but it has never been this severe. She notes that she has not seen her PCP or any other doctor for her symptoms. The patient reports that she has a history of a hysterectomy. Source of History: patient Onset: this morning Position: other (left facial) Timing: constant Modifying Factors (Relieving): other (Aleve) Associated Symptoms: + diaphoresis, No headache, No nausea, No vomiting, No weakness Note: Associated symptoms: lose of balance Review of Systems See HPI for pertinent positives & negatives. A total of 10 systems reviewed and were otherwise negative. Past Medical & Surgical Medical Problems: (1) Depression (2) Hysterectomy (3) Kidney stone Family History Cancer Diabetes mellitus FH: back pain Gallbladder disease Heart disease Hypertension Kidney disease Kidney stones Lung disease Seizures Social History Smoking Status: Current Every Day Smoker Alcohol Use: none Drug Use: none Marital Status: Housing Status: lives with family Occupation Status: unemployed Current/Historical Medications Scheduled Amitriptyline HCl (Amitriptyline HCl), 25 MG PO HS Fluticasone Propionate (Nasal) (Flonase Allergy Relief), 1 SPRAY NEREIDA DAILY Scheduled PRN Albuterol (Ventolin Hfa), 2 PUFFS INH QID PRN for Shortness of Breath Oxycodone Immediate Rel Tab (Roxicodone Ir), 1-2 TAB PO Q4H PRN for Severe Pain Allergies Coded Allergies: Hydromorphone (Verified Adverse Reaction, Mild, LIGHTHEADED AND VOMITING, 08/09/16) Physical Exam Vital Signs Date Time Temp Pulse Resp B/P (MAP) Pulse Ox O2 Delivery O2 Flow Rate FiO2 09/26/16 20:58 55 18 131/88 96 09/26/16 19:44 50 18 156/82 97 Room Air 09/26/16 18:13 52 09/26/16 17:54 97 Room Air 09/26/16 17:54 97 Room Air 09/26/16 17:49 51 174/85 70 151/97 57 178/95 09/26/16 16:27 36.7 60 18 185/94 96 Room Air Physical Exam GENERAL: Patient is awake, alert, and in no acute distress. Patient is resting uncomfortably and showing no signs of anxiety EYES: The conjunctivae are clear. The pupils are round and reactive. EARS, NOSE, MOUTH AND THROAT: The nose is without any evidence of any deformity. Mucous membranes are moist tongue is midline. TMs are clear bilaterally. No tenderness over the left TMJ or artery. NECK: The neck is supple. Slight tenderness over the left carotid artery, no bruit noted. RESPIRATORY: Normal respiratory effort is noted there is no evidence of wheezing rhonchi or rales CARDIOVASCULAR: Regular rate and rhythm noted there no murmurs rubs or gallops normal S1 normal S2 GASTROINTESTINAL: The abdomen is soft. Bowel sounds are present in all quadrants. Abdomen is nontender MUSCULOSKELETAL/EXTREMITIES: There is no evidence of gross deformity full range of motion is noted in the hips and shoulders SKIN: There is no obvious evidence of any rash. There are no petechiae, pallor or cyanosis noted. NEUROLOGIC: Patient is awake alert and oriented x3 strength is symmetric patellar reflexes are 2+ bilaterally Medical Decision & Procedures ER Provider Diagnostic Interpretation: Radiology results as stated below per my review and radiologist interpretation: CT ANGIOGRAM OF THE BRAIN COMBO; CT ANGIOGRAM OF THE NECK CLINICAL HISTORY: Headache. Neck pain. Jaw pain. Ear pain. Facial pain. COMPARISON STUDY: CT of the brain dated 10/18/2014. MRI of the brain dated 04/27/2015. MR angiogram of the neck dated 10/18/2014. CT scan of the neck dated 11/07/2014. TECHNIQUE: Unenhanced axial CT scan of the brain is performed. Subsequently, following the IV administration of 93 of Optiray 320, CT angiogram of the head and neck was performed from the aortic arch to the vertex. Images are reviewed in the axial, sagittal, and coronal planes. 3-D MIPS images are created and assessed. IV contrast was administered without complication. All measurements were calculated based on NASCET criteria. CT DOSE: 999.58 mGy.cm FINDINGS: Brain parenchyma: The brain parenchyma is normal in appearance. There is no hemorrhage, mass effect, or evidence of acute territorial ischemia by CT criteria. There is no evidence of enhancing mass lesion on the angiogram phase images. The ventricles, sulci, and cisterns are normal in configuration. Panchal-white matter differentiation is preserved. No extra-axial fluid collection is seen. Thoracic aorta: Visualized portions of the thoracic aorta are normal in caliber. The aortic arch demonstrates standard 3-vessel anatomy. Right carotid arterial system: The right common carotid artery is widely patent, as are the right internal and external carotid arteries. Left carotid arterial system: The left common carotid artery is widely patent, as are the left internal and external carotid arteries. Vertebral arteries: The vertebral arteries are widely patent. The left vertebral artery is dominant. Subclavian arteries: Widely patent bilaterally Intracranial vasculature: The [place] is developmentally complete. The internal carotid arteries at the skull base are widely patent, as are the anterior and middle cerebral arteries. The vertebrobasilar system and posterior cervical arteries are widely patent. The left vertebral artery is dominant. No aneurysm, high-grade stenosis, or focal vessel cut off is seen throughout the intracranial circulation. Jugular veins: Widely patent bilaterally. Dural sinuses: Clear. Lung apices: A 4 mm right upper lobe pulmonary nodule seen on image #32 is unchanged from 2015 and of doubtful significance. Partially visualized upper lobe lung parenchyma is otherwise clear. Soft tissues: The visualized pharyngeal soft tissues are normal in appearance noting angiographic phase technique. The oropharyngeal airway appears widely patent. The salivary glands are normal in appearance. A 12 mm low-attenuation nodule in the right lobe of the thyroid gland seen on image #70 and a 10 mm hypervascular nodule in the right lobe seen on image #52 are again noted. The thyroid gland is otherwise unremarkable. No cervical lymphadenopathy is seen. Skeletal structures: The calvarium appears intact. The cervical spine is within normal limits. Sinuses and mastoids: The paranasal sinuses are clear. The mastoid air cells are well pneumatized. IMPRESSION: 1. No acute intracranial abnormality. 2. Unremarkable CT angiogram of the brain. 3. Unremarkable CT angiogram of the neck. Electronically signed by: Jimmy Richey M.D. 09/26/2016 7:32 PM Dictated Date/Time: 09/26/2016 7:22 PM SINGLE VIEW CHEST CLINICAL HISTORY: Change in mental status. Weakness. FINDINGS: An AP, portable, upright chest radiograph is compared to chest x-ray and chest CT dated 07/12/2016. The examination is degraded by portable technique and patient rotation. The cardiomediastinal silhouette is unremarkable. The lungs and pleural spaces are clear. No pneumothorax is seen. The bony thorax is grossly intact. IMPRESSION: No active disease in the chest no significant change from recent prior studies. Electronically signed by: Jimmy Richey M.D. 09/26/2016 5:54 PM Dictated Date/Time: 09/26/2016 5:53 PM Laboratory Results 09/26/16 17:46 Red Blood Count 4.87, Mean Corpuscular Volume 84.6, Mean Corpuscular Hemoglobin 29.2, Mean Corpuscular Hemoglobin Concent 34.5, Mean Platelet Volume 10.2, Neutrophils (%) (Auto) 60.9, Lymphocytes (%) (Auto) 33.8, Monocytes (%) (Auto) 4.1, Eosinophils (%) (Auto) 0.7, Basophils (%) (Auto) 0.3, Neutrophils # (Auto) 3.56, Lymphocytes # (Auto) 1.98, Monocytes # (Auto) 0.24, Eosinophils # (Auto) 0.04, Basophils # (Auto) 0.02 09/26/16 17:46 Test 09/26/16 17:46 09/26/16 19:56 White Blood Count 5.85 K/uL (4.8-10.8) Red Blood Count 4.87 M/uL (4.2-5.4) Hemoglobin 14.2 g/dL (12.0-16.0) Hematocrit 41.2 % (37-47) Mean Corpuscular Volume 84.6 fL (80-100) Mean Corpuscular Hemoglobin 29.2 pg (25-34) Mean Corpuscular Hemoglobin Concent 34.5 g/dl (32-36) Platelet Count 191 K/uL (130-400) Mean Platelet Volume 10.2 fL (7.4-10.4) Neutrophils (%) (Auto) 60.9 % Lymphocytes (%) (Auto) 33.8 % Monocytes (%) (Auto) 4.1 % Eosinophils (%) (Auto) 0.7 % Basophils (%) (Auto) 0.3 % Neutrophils # (Auto) 3.56 K/uL (1.4-6.5) Lymphocytes # (Auto) 1.98 K/uL (1.2-3.4) Monocytes # (Auto) 0.24 K/uL (0.11-0.59) Eosinophils # (Auto) 0.04 K/uL (0-0.5) Basophils # (Auto) 0.02 K/uL (0-0.2) RDW Standard Deviation 40.2 fL (36.4-46.3) RDW Coefficient of Variation 13.2 % (11.5-14.5) Immature Granulocyte % (Auto) 0.2 % Immature Granulocyte # (Auto) 0.01 K/uL (0.00-0.02) Erythrocyte Sedimentation Rate 10 mm/hr (0-21) Prothrombin Time 10.2 SECONDS (9.0-12.0) Prothromb Time International Ratio 1.0 (0.9-1.1) Activated Partial Thromboplast Time 27.4 SECONDS (21.0-31.0) Partial Thromboplastin Ratio 1.1 Anion Gap 7.0 mmol/L (3-11) Est Creatinine Clear Calc Drug Dose 77.6 ml/min Estimated GFR () 80.2 Estimated GFR (Non- 69.2 BUN/Creatinine Ratio 12.0 (10-20) Calcium Level 9.4 mg/dl (8.5-10.1) Magnesium Level 2.7 mg/dl (1.8-2.4) Total Bilirubin 0.4 mg/dl (0.2-1) Direct Bilirubin 0.1 mg/dl (0-0.2) Aspartate Amino Transf (AST/SGOT) 16 U/L (15-37) Alanine Aminotransferase (ALT/SGPT) 20 U/L (12-78) Alkaline Phosphatase 86 U/L (45-117) Troponin I < 0.015 ng/ml (0-0.045) C-Reactive Protein 0.72 mg/dl (0-0.29) Total Protein 7.6 gm/dl (6.4-8.2) Albumin 4.2 gm/dl (3.4-5.0) Thyroid Stimulating Hormone (TSH) 0.999 uIu/ml (0.300-4.500) Urine Color YELLOW Urine Appearance CLEAR (CLEAR) Urine pH 6.5 (4.5-7.5) Urine Specific [place] 1.030 (1.000-1.030) Urine Protein NEG (NEG) Urine Glucose (UA) NEG (NEG) Urine Ketones NEG (NEG) Urine Occult Blood NEG (NEG) Urine Nitrite NEG (NEG) Urine Bilirubin NEG (NEG) Urine Urobilinogen NEG (NEG) Urine Leukocyte Esterase TRACE (NEG) Urine WBC (Auto) 1-5 /hpf (0-5) Urine RBC (Auto) 0-4 /hpf (0-4) Urine Hyaline Casts (Auto) 1-5 /lpf (0-5) Urine Epithelial Cells (Auto) 10-20 /lpf (0-5) Urine Bacteria (Auto) NEG (NEG) Laboratory results per my review. Medications Administered Medications (Trade) Dose Ordered Sig/Heriberto Route Start Time Stop Time Status Last Admin Dose Admin Ondansetron HCl (Zofran Inj) 4 mg NOW STAT IV 09/26/16 17:15 09/26/16 17:18 DC 09/26/16 18:00 4 MG Sodium Chloride 1,000 ml @ 999 mls/hr Q1H1M STAT IV 09/26/16 17:15 09/26/16 18:15 DC 09/26/16 18:01 999 MLS/HR Morphine Sulfate (MoRPHine SULFATE INJ) 4 mg Q15M PRN IV 09/26/16 17:15 09/26/16 21:18 DC 09/26/16 19:48 4 MG Sodium Chloride 1,000 ml @ 200 mls/hr Q5H STAT IV 09/26/16 17:15 09/26/16 21:18 DC 09/26/16 19:42 200 MLS/HR Oxycodone HCl (Roxicodone Immediate Rel 5MG Home Pack) 1 homepack UD ONCE PO 09/26/16 20:15 09/26/16 20:16 DC 09/26/16 20:52 1 HOMEPACK ECG Indication: other Rate (beats per minute): 48 Rhythm: sinus bradycardia Findings: no ectopy, other (no ST segment abnormality) Comparison ECG Date: 07/12/16 Change: no significant change ED Course 1712: The patient was evaluated in room A03. A complete history and physical examination were performed. 1715: Ordered NSS 1,000 ml @ 200 mls/hr IV, Morphine Sulfate 4mg IV, NSS 1,000 ml @ 999 mls/hr IV, Zofran Inj 4mg IV 1842: I reevaluated the patient, and she is resting comfortably. 2009: Upon reevaluation, the patient is resting. I discussed the results and treatment plan with her. She verbalized agreement of the treatment plan. The patient will be discharged home when she receives her medication. 2015: Ordered Oxycodone HCl 1 homepack Medical Decision Differential diagnosis: Etiologies such as migraine headache, meningitis, sinusitis, CO exposure, ICH, SAH, infection, tumor, headache, sinus thrombosis, arterial dissection, as well as others were entertained. Medication Reconciliation: I attest that I have personally reviewed the patient' s current medications list. Patient was found to have a slightly elevated blood pressure due to circumstances. I do not believe that the patient requires hypertension monitoring. The patient is a 46-year-old female who presented to the emergency department with left-sided facial pain. The patient states that she's had TMJ in the past. The patient states this feels somewhat different. She had pain that was in her left jaw left druze as well as in her left side of her neck. The patient did not appear to have reproducible TMJ pain. For this reason I was concerned there were some other underlying vascular cause for her condition. Her cardiac workup did not show any signs of acute ischemia. CT angiography the head neck did not reveal any acute abnormality. The patient was treated with pain medication in the emergency department. On subsequent reevaluation she was feeling much better. I discussed the patient's laboratory and radiographic studies with her. I encouraged her to rest and avoid any strenuous activity. I also encouraged her to continue all medications as prescribed and follow-up with her primary care physician as soon as possible. Otherwise I encouraged her to return to the emergency Department immediately if symptoms change worsen or the need arises. Impression Primary Impression: Neck pain on left side Additional Impressions: Left-sided face pain TMJ syndrome Scribe Attestation The scribe's documentation has been prepared under my direction and personally reviewed by me in its entirety. I confirm that the note above accurately reflects all work, treatment, procedures, and medical decision making performed by me. Departure Information Dispostion Home / Self-Care Prescriptions Oxycodone Immediate Rel Tab (ROXICODONE IR) 5 Mg Tab 1-2 TAB PO Q4H Y for Severe Pain, #24 TAB Prov: Jorge Crenshaw, DO 09/26/16 Referrals Lakia Alvarez D.O. Forms HOME CARE DOCUMENTATION FORM, IMPORTANT VISIT INFORMATION Patient Instructions ED TMJ Syndrome, My [facility] Additional Instructions Call your family to schedule a follow-up appointment versus possible. Rest and avoid any strenuous activity. Continue using Motrin and Tylenol as directed for pain. Problem Qualifiers
[2016-09-26 17:54] VITALS: O2SAT 97
--- NOTE | 2016-09-26 17:55 | DIAGNOSTIC IMAGING REPORT ---
SINGLE VIEW CHEST CLINICAL HISTORY: Change in mental status. Weakness. FINDINGS: An AP, portable, upright chest radiograph is compared to chest x-ray and chest CT dated 07/12/2016. The examination is degraded by portable technique and patient rotation. The cardiomediastinal silhouette is unremarkable. The lungs and pleural spaces are clear. No pneumothorax is seen. The bony thorax is grossly intact. IMPRESSION: No active disease in the chest no significant change from recent prior studies. Electronically signed by: iJmmy Richey M.D. 09/26/2016 5:54 PM Dictated Date/Time: 09/26/2016 5:53 PM
[2016-09-26] MEDS: MoRPHine SULFATE 4 MG/ML 1 ML CARP\\VIAL IV PRN ×2 (18:00→19:48)
[2016-09-26 18:03] LABS: BASO % 0.3 %; BASO ABS # 0.02 K/uL (0-0.2); COMPLETE YES; EOS % 0.7 %; HEMATOCRIT 41.2 % (37-47); IG% 0.2 %; LYMPH % 33.8 %; LYMPH ABS # 1.98 K/uL (1.2-3.4); MEAN CELL VOLUME 84.6 fL (80-100); MEAN CORPUSCULAR HEMOGLOBIN 29.2 pg (25-34); MEAN CORPUSCULAR HGB CONC 34.5 g/dl (32-36); MEAN PLATELET VOLUME 10.2 fL (7.4-10.4); MONO % 4.1 %; NEUT % 60.9 %; PLATELET COUNT 191 K/uL (130-400); RED BLOOD COUNT 4.87 M/uL (4.2-5.4); WHITE BLOOD COUNT 5.85 K/uL (4.8-10.8)
[2016-09-26 18:12] LABS: PARTIAL THROMBOPLASTIN RATIO 1.1; PROTHROMBIN TIME (PATIENT) 10.2 SECONDS (9.0-12.0)
[2016-09-26 18:24] LABS: ALT/SGPT 20 U/L (12-78); BLOOD UREA NITROGEN 12 mg/dl (7-18); C-REACTIVE PROTEIN 0.72 mg/dl (0-0.29); CALCIUM 9.4 mg/dl (8.5-10.1); CARBON DIOXIDE 26 mmol/L (21-32); CHLORIDE 109 mmol/L (98-107); CREATININE 0.98 mg/dl (0.60-1.20); GLUCOSE 90 mg/dl (70-99); MAGNESIUM 2.7 mg/dl (1.8-2.4); POTASSIUM 3.8 mmol/L (3.5-5.1); SODIUM 142 mmol/L (136-145)
[2016-09-26 18:33] LABS: ALKALINE PHOSPHATASE 86 U/L (45-117); AST/SGOT 16 U/L (15-37); THYROID STIMULATING HORMONE 0.999 uIu/ml (0.300-4.500)
--- NOTE | 2016-09-26 19:33 | DIAGNOSTIC IMAGING REPORT ---
CT ANGIOGRAM OF THE BRAIN COMBO; CT ANGIOGRAM OF THE NECK CLINICAL HISTORY: Headache. Neck pain. Jaw pain. Ear pain. Facial pain. COMPARISON STUDY: CT of the brain dated 10/18/2014. MRI of the brain dated 04/27/2015. MR angiogram of the neck dated 10/18/2014. CT scan of the neck dated 11/07/2014. TECHNIQUE: Unenhanced axial CT scan of the brain is performed. Subsequently, following the IV administration of 93 of Optiray 320, CT angiogram of the head and neck was performed from the aortic arch to the vertex. Images are reviewed in the axial, sagittal, and coronal planes. 3-D MIPS images are created and assessed. IV contrast was administered without complication. All measurements were calculated based on NASCET criteria. CT DOSE: 999.58 mGy.cm FINDINGS: Brain parenchyma: The brain parenchyma is normal in appearance. There is no hemorrhage, mass effect, or evidence of acute territorial ischemia by CT criteria. There is no evidence of enhancing mass lesion on the angiogram phase images. The ventricles, sulci, and cisterns are normal in configuration. Panchal-white matter differentiation is preserved. No extra-axial fluid collection is seen. Thoracic aorta: Visualized portions of the thoracic aorta are normal in caliber. The aortic arch demonstrates standard 3-vessel anatomy. Right carotid arterial system: The right common carotid artery is widely patent, as are the right internal and external carotid arteries. Left carotid arterial system: The left common carotid artery is widely patent, as are the left internal and external carotid arteries. Vertebral arteries: The vertebral arteries are widely patent. The left vertebral artery is dominant. Subclavian arteries: Widely patent bilaterally Intracranial vasculature: The [place] is developmentally complete. The internal carotid arteries at the skull base are widely patent, as are the anterior and middle cerebral arteries. The vertebrobasilar system and posterior cervical arteries are widely patent. The left vertebral artery is dominant. No aneurysm, high-grade stenosis, or focal vessel cut off is seen throughout the intracranial circulation. Jugular veins: Widely patent bilaterally. Dural sinuses: Clear. Lung apices: A 4 mm right upper lobe pulmonary nodule seen on image #32 is unchanged from 2015 and of doubtful significance. Partially visualized upper lobe lung parenchyma is otherwise clear. Soft tissues: The visualized pharyngeal soft tissues are normal in appearance noting angiographic phase technique. The oropharyngeal airway appears widely patent. The salivary glands are normal in appearance. A 12 mm low-attenuation nodule in the right lobe of the thyroid gland seen on image #70 and a 10 mm hypervascular nodule in the right lobe seen on image #52 are again noted. The thyroid gland is otherwise unremarkable. No cervical lymphadenopathy is seen. Skeletal structures: The calvarium appears intact. The cervical spine is within normal limits. Sinuses and mastoids: The paranasal sinuses are clear. The mastoid air cells are well pneumatized. IMPRESSION: 1. No acute intracranial abnormality. 2. Unremarkable CT angiogram of the brain. 3. Unremarkable CT angiogram of the neck. Electronically signed by: Jimmy Richey M.D. 09/26/2016 7:32 PM Dictated Date/Time: 09/26/2016 7:22 PM
[2016-09-26] MEDS ORDERED: OXYC1TAB3 PO (20:08)
[2016-09-26] MEDS ORDERED: OXYCODONE IR HOME PACK PO ONE (20:15)
[2016-09-26 20:27] LABS: URINE APPEARANCE CLEAR (CLEAR); URINE BILIRUBIN NEG (NEG); URINE COLOR YELLOW; URINE NITRITE NEG (NEG); URINE PH 6.5 (4.5-7.5); UROBILINOGEN NEG (NEG)
[2016-09-26 20:37] LABS: MANUAL MICROSCOPIC REQUIRED? NO; REVIEW REQ? NO
[2016-09-26 20:58] VITALS: BP 131/88; PULSE 55; O2SAT 96
== END 2016-09-26 21:01 | disposition home or self-care (01) ==
LOC: C.EDB 16:07 → C.EDA 21:01
DX: M54.2 Cervicalgia (principal); R51 Headache; M26.609 Unspecified temporomandibular joint disorder, unspecified side; F32.9 Major depressive disorder, single episode, unspecified; F17.200 Nicotine dependence, unspecified, uncomplicated; Z90.710 Acquired absence of both cervix and uterus; Z87.442 Personal history of urinary calculi; Z79.899 Other long term (current) drug therapy; Z88.5 Allergy status to narcotic agent; Z80.9 Family history of malignant neoplasm, unspecified; Z83.3 Family history of diabetes mellitus; Z83.79 Family history of other diseases of the digestive system; Z82.49 Family history of ischemic heart disease and other diseases of the circulatory system; Z84.1 Family history of disorders of kidney and ureter; Z82.0 Family history of epilepsy and other diseases of the nervous system

== ENCOUNTER 2016-12-13 05:49 | Emergency (ER) | payer OTHER ==
[~2016-12-13] VITALS: Ht 165.1 cm; Wt 93.0 kg
[~2016-12-13 05:49] MED LIST changes: +AMT25 PO; +OXYC1TAB3 PO
[2016-12-13 05:53] VITALS: TEMP 36.6; Ht 165.1 cm; Wt 93.0 kg
[2016-12-13] MEDS ORDERED: ONDANSETRON INJ 2 MG/ML 2 ML VIAL IV STA (05:59)
[2016-12-13 06:26] LABS: URINE APPEARANCE CLEAR (CLEAR); URINE BILIRUBIN NEG (NEG); URINE COLOR YELLOW; URINE EPITHELIAL CELL AUTO >30 /lpf (0-5); URINE NITRITE NEG (NEG); URINE SPECIFIC GRAVITY 1.022 (1.000-1.030); UROBILINOGEN NEG (NEG); ZZUR CULT IF INDIC CLEAN CATCH NO
[2016-12-13 06:28] LABS: BASO % 0.6 %; BASO ABS # 0.04 K/uL (0-0.2); COMPLETE YES; EOS % 1.8 %; HEMATOCRIT 43.2 % (37-47); IG% 0.2 %; LYMPH % 26.9 %; LYMPH ABS # 1.66 K/uL (1.2-3.4); MEAN CELL VOLUME 87.1 fL (80-100); MEAN CORPUSCULAR HEMOGLOBIN 28.8 pg (25-34); MEAN CORPUSCULAR HGB CONC 33.1 g/dl (32-36); MEAN PLATELET VOLUME 10.3 fL (7.4-10.4); MONO % 6.3 %; NEUT % 64.2 %; PLATELET COUNT 194 K/uL (130-400); RED BLOOD COUNT 4.96 M/uL (4.2-5.4); WHITE BLOOD COUNT 6.18 K/uL (4.8-10.8)
[2016-12-13 06:30] LABS: MANUAL MICROSCOPIC REQUIRED? NO; REVIEW REQ? NO
[2016-12-13] MEDS ORDERED: GI COCKTAIL PO STA (06:34)
[2016-12-13] MEDS ORDERED: SUCRALFATE 1 GM TAB PO STA (06:34)
[2016-12-13] MEDS ORDERED: FAMOTIDINE 20 MG TAB PO STA (06:34)
[2016-12-13] MEDS ORDERED: LIDOCAINE HCL 2% VISC SOLN 20 ML UDC ONE (06:52)
[2016-12-13] MEDS ORDERED: ALUMINUM/MAGNESIUM SUSP 30 ML UDC ONE (06:52)
[2016-12-13 06:53] LABS: BUN/CREATININE RATIO 13.8 (10-20); CALCIUM 9.2 mg/dl (8.5-10.1); POTASSIUM 3.6 mmol/L (3.5-5.1)
[2016-12-13 06:56] LABS: ALB/GLOB RATIO 1.1 (0.9-2)
--- NOTE | 2016-12-13 07:01 | EMERGENCY ROOM VISIT NOTE ---
History Report prepared by Leonela: Ximena David Under the Supervision of: Dr. Terence Hong M.D. First contact with patient: 06:28 Chief Complaint: ABDOMINAL PAIN Stated Complaint: SEVERE ABDOMINAL PAIN,LFT ARM PAIN AND HEAVINESS Nursing Triage Summary: Patient reports sudden onset of sharp pain in upper left abdomen and back while driving. Patient reports sudden onset of nauea. Patient reports left arm heaviness. 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 She describes her pain as a "sharp" and rates it as a 6/10 in severity. She is also experiencing nausea. 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 A total of 10 systems reviewed and were otherwise negative. Past Medical & Surgical Medical Problems: (1) Depression (2) Hysterectomy (3) Kidney stone Family History Cancer Diabetes mellitus FH: back pain Gallbladder disease Heart disease Hypertension Kidney disease Kidney stones Lung disease Seizures Social History Smoking Status: Current Every Day Smoker Alcohol Use: none Drug Use: none Marital Status: Housing Status: lives with family Occupation Status: unemployed Current/Historical Medications Scheduled Pantoprazole (Protonix), 1 TAB PO DAILY Allergies Coded Allergies: Hydromorphone (Verified Adverse Reaction, Mild, LIGHTHEADED AND VOMITING, 08/09/16) Physical Exam Vital Signs Date Time Temp Pulse Resp B/P (MAP) Pulse Ox O2 Delivery O2 Flow Rate FiO2 12/13/16 08:22 65 18 139/66 98 12/13/16 06:56 67 18 145/70 97 Room Air 12/13/16 06:10 58 12/13/16 05:53 36.6 72 16 165/92 98 Room Air Physical Exam GENERAL: Patient is a healthy-appearing well-nourished 46 year old female. HEAD: Normocephalic atraumatic EYES: Ocular movements intact pupils equal and react to light OROPHARYNX mucous membranes are moist no exudates present no erythema or edema present NECK: Supple no nuchal rigidity CHEST: Good equal expansion LUNGS: Clear and equal to auscultation CARDIAC: Normal S1 and S2 ABDOMEN: Soft nontender no guarding BACK: No CVA tenderness EXTREMITIES: No pain upon palpation normal muscle strength in all groups no clubbing cyanosis or edema NEURO: Patient is following commands and answering questions appropriately. Alert and oriented x3 Cranial Nerves 2-12 grossly intact Medical Decision & Procedures ER Provider Diagnostic Interpretation: Radiology results as stated below per my review and radiologist interpretation: CHEST 2 VIEWS ROUTINE CLINICAL HISTORY: Difficult chest pain. Nausea. COMPARISON STUDY: September 26, 2016 FINDINGS: The cardiac and mediastinal contours are normal. There is no evidence of focal pulmonary consolidation. There is no evidence of failure. No pleural effusions are visualized.[ IMPRESSION: No active disease in the chest. Electronically signed by: Alexsander Shaw M.D. 12/13/2016 7:24 AM Dictated Date/Time: 12/13/2016 7:23 AM Laboratory Results 12/13/16 06:10 Red Blood Count 4.96, Mean Corpuscular Volume 87.1, Mean Corpuscular Hemoglobin 28.8, Mean Corpuscular Hemoglobin Concent 33.1, Mean Platelet Volume 10.3, Neutrophils (%) (Auto) 64.2, Lymphocytes (%) (Auto) 26.9, Monocytes (%) (Auto) 6.3, Eosinophils (%) (Auto) 1.8, Basophils (%) (Auto) 0.6, Neutrophils # (Auto) 3.97, Lymphocytes # (Auto) 1.66, Monocytes # (Auto) 0.39, Eosinophils # (Auto) 0.11, Basophils # (Auto) 0.04 12/13/16 06:10 Test 12/13/16 06:00 12/13/16 06:10 12/13/16 07:46 Urine Color YELLOW Urine Appearance CLEAR (CLEAR) Urine pH 5.0 (4.5-7.5) Urine Specific [place] 1.022 (1.000-1.030) Urine Protein NEG (NEG) Urine Glucose (UA) NEG (NEG) Urine Ketones NEG (NEG) Urine Occult Blood NEG (NEG) Urine Nitrite NEG (NEG) Urine Bilirubin NEG (NEG) Urine Urobilinogen NEG (NEG) Urine Leukocyte Esterase TRACE (NEG) Urine WBC (Auto) 1-5 /hpf (0-5) Urine RBC (Auto) 0-4 /hpf (0-4) Urine Hyaline Casts (Auto) 1-5 /lpf (0-5) Urine Epithelial Cells (Auto) >30 /lpf (0-5) Urine Bacteria (Auto) NEG (NEG) White Blood Count 6.18 K/uL (4.8-10.8) Red Blood Count 4.96 M/uL (4.2-5.4) Hemoglobin 14.3 g/dL (12.0-16.0) Hematocrit 43.2 % (37-47) Mean Corpuscular Volume 87.1 fL (80-100) Mean Corpuscular Hemoglobin 28.8 pg (25-34) Mean Corpuscular Hemoglobin Concent 33.1 g/dl (32-36) Platelet Count 194 K/uL (130-400) Mean Platelet Volume 10.3 fL (7.4-10.4) Neutrophils (%) (Auto) 64.2 % Lymphocytes (%) (Auto) 26.9 % Monocytes (%) (Auto) 6.3 % Eosinophils (%) (Auto) 1.8 % Basophils (%) (Auto) 0.6 % Neutrophils # (Auto) 3.97 K/uL (1.4-6.5) Lymphocytes # (Auto) 1.66 K/uL (1.2-3.4) Monocytes # (Auto) 0.39 K/uL (0.11-0.59) Eosinophils # (Auto) 0.11 K/uL (0-0.5) Basophils # (Auto) 0.04 K/uL (0-0.2) RDW Standard Deviation 42.5 fL (36.4-46.3) RDW Coefficient of Variation 13.4 % (11.5-14.5) Immature Granulocyte % (Auto) 0.2 % Immature Granulocyte # (Auto) 0.01 K/uL (0.00-0.02) Anion Gap 8.0 mmol/L (3-11) Est Creatinine Clear Calc Drug Dose 79.2 ml/min Estimated GFR () 78.2 Estimated GFR (Non- 67.5 BUN/Creatinine Ratio 13.8 (10-20) Calcium Level 9.2 mg/dl (8.5-10.1) Total Bilirubin 0.3 mg/dl (0.2-1) Aspartate Amino Transf (AST/SGOT) 14 U/L (15-37) Alanine Aminotransferase (ALT/SGPT) 21 U/L (12-78) Alkaline Phosphatase 94 U/L (45-117) Total Protein 7.3 gm/dl (6.4-8.2) Albumin 3.9 gm/dl (3.4-5.0) Globulin 3.4 gm/dl (2.5-4.0) Albumin/Globulin Ratio 1.1 (0.9-2) Lipase 202 U/L (73-393) Bedside Troponin I < 0.030 ng/ml (0-0.045) Labs reviewed by ED physician. Medications Administered Medications (Trade) Dose Ordered Sig/Heriberto Route Start Time Stop Time Status Last Admin Dose Admin Ondansetron HCl (Zofran Inj) 4 mg NOW STAT IV 12/13/16 05:59 12/13/16 06:01 DC 12/13/16 06:14 4 MG Famotidine (Pepcid Tab) 20 mg NOW STAT PO 12/13/16 06:34 12/13/16 06:36 DC 12/13/16 06:54 20 MG Sucralfate (Carafate Tab) 1 gm NOW STAT PO 12/13/16 06:34 12/13/16 06:36 DC 12/13/16 06:54 1 GM Al Hydroxide/Mg Hydroxide (Maalox Susp) 30 ml STK-MED ONCE .ROUTE 12/13/16 06:52 12/13/16 06:53 DC 12/13/16 06:55 30 ML Lidocaine HCl (Viscous Lidocaine 2% Soln) 20 ml STK-MED ONCE .ROUTE 12/13/16 06:52 12/13/16 06:53 DC 12/13/16 06:54 20 ML Ketorolac Tromethamine (Toradol Inj) 30 mg NOW STAT IV 12/13/16 07:46 12/13/16 07:47 DC 12/13/16 07:50 30 MG Metoclopramide HCl (Reglan Inj) 10 mg NOW STAT IV 12/13/16 07:46 12/13/16 07:47 DC 12/13/16 07:50 10 MG ECG Indication: abdominal pain Rate (beats per minute): 60 Rhythm: normal sinus Findings: no acute ischemic change, no ectopy Comparison ECG Date: Repeat ECG 12/13/2016 Change: Repeat ECG performed in the ED 12/13/2016: Sinus bradycardia at 49, no ectopy or ischemia. No change from previous. ED Course 0628: Past medical records reviewed. The patient was evaluated in room A10. A complete history and physical examination was performed. 0634: Sucralfate 1 gm PO, Pepcid 20 mg PO, GI cocktail 24 ml PO 0745: Upon reevaluation the patient is still experiencing some pain and nausea. 0746: Reglan 10 mg IV, Toradol 30 mg IV 0814: I reassessed the patient at this time. She is feeling better and resting comfortably. I discussed the results and treatment plan with the patient. I answered all pertaining questions that she had. She expressed understanding and verbalized agreement. The patient will be discharged home. Medical Decision Differential diagnosis: Etiologies such as appendicitis, diverticulitis, PUD, biliary pathology, UTI, pancreatitis, obstruction, mesenteric ischemia, aortic pathology, infections, inflammatory bowel disease, renal colic, as well as others were entertained. Medication Reconciliation: I attest that I have personally reviewed the patient' s current medication list. Blood Pressure Screening: Patient was found to have an elevated blood pressure and was referred to their primary care doctor for recheck and further treatment. This is a 46-year-old female who presents emergency department complaining of epigastric pain. I will note that the patient has been seen here multiple times for this complaint and has had 4 CAT scans done this year alone. Based on this fact along with the fact the patient has a normal CBC normal renal profile normal liver profile and normal lipase I felt that the patient did not need another CAT scan. In addition she has a normal EKG 2 along with normal serial troponins. I do feel that the patient as well as to be discharged home for follow-up with her primary care physician. Patient was in agreement with the treatment plan Impression Primary Impression: Epigastric pain Scribe Attestation The scribe's documentation has been prepared under my direction and personally reviewed by me in its entirety. I confirm that the note above accurately reflects all work, treatment, procedures, and medical decision making performed by me. Departure Information Dispostion Home / Self-Care Prescriptions Pantoprazole (PROTONIX) 40 Mg Tab 1 TAB PO DAILY for 30 Days, #30 TAB Prov: Terence Hong MD 12/13/16 Referrals Lakia Alvarez D.O. (PCP) Forms Call Back Authorization, HOME CARE DOCUMENTATION FORM, IMPORTANT VISIT INFORMATION Patient Instructions ED Epigastric Pain [facility] Additional Instructions Clear liquid diet next 48 hours Take Maalox 5 ml Before every meal and at bedtime You have been examined and treated today on an emergency basis only. This is not a substitute for, or an effort to provide, complete comprehensive medical care. It is impossible to recognize and treat all injuries or illnesses in a single emergency department visit. It is therefore important that you follow up closely with Dr Alvarez. Call as soon as possible for an appointment. Thank you for your time and consideration. I look forward to speaking with you again soon. Please don't hesitate to call us if you have any questions.
--- NOTE | 2016-12-13 07:25 | DIAGNOSTIC IMAGING REPORT ---
CHEST 2 VIEWS ROUTINE CLINICAL HISTORY: Difficult chest pain. Nausea. COMPARISON STUDY: September 26, 2016 FINDINGS: The cardiac and mediastinal contours are normal. There is no evidence of focal pulmonary consolidation. There is no evidence of failure. No pleural effusions are visualized.[ IMPRESSION: No active disease in the chest. Electronically signed by: Alexsander Shaw M.D. 12/13/2016 7:24 AM Dictated Date/Time: 12/13/2016 7:23 AM
[2016-12-13] MEDS ORDERED: KETOROLAC TROMETHAMINE 30 MG/ML VIAL IV STA (07:46)
[2016-12-13] MEDS ORDERED: METOCLOPRAMIDE HCL INJ 5 MG/ML 2 ML VIAL IV STA (07:46)
[2016-12-13] MEDS ORDERED: PANT1TAB48 PO (08:03)
[2016-12-13 08:22] VITALS: BP 139/66; PULSE 65; O2SAT 98
== END 2016-12-13 08:23 | disposition home or self-care (01) ==
LOC: C.EDB 05:50 → C.EDA 08:23
DX: R10.13 Epigastric pain (principal); F32.9 Major depressive disorder, single episode, unspecified; Z83.3 Family history of diabetes mellitus; Z82.49 Family history of ischemic heart disease and other diseases of the circulatory system; Z82.0 Family history of epilepsy and other diseases of the nervous system; F17.200 Nicotine dependence, unspecified, uncomplicated

== ENCOUNTER 2017-05-01 15:59 | Emergency (ER) | payer OTHER ==
[~2017-05-01] VITALS: Ht 165.1 cm; Wt 83.2 kg
[~2017-05-01 15:59] MED LIST changes: -AMT25 PO; -FLUT0.15 NAE; -OXYC1TAB3 PO; +PANT1TAB3 PO; -PRVHFAIN INH
[2017-05-01 16:15] VITALS: TEMP 36.7; Ht 165.1 cm; Wt 83.2 kg
[2017-05-01] MEDS ORDERED: ONDANSETRON INJ 2 MG/ML 2 ML VIAL IV STA (16:57)
[2017-05-01] MEDS ORDERED: SODIUM CHLORIDE 0.9% 1000ML 1,000 ML IV STA (16:57)
--- NOTE | 2017-05-01 17:13 | EMERGENCY ROOM VISIT NOTE ---
History Report prepared by Leonela: Juan Martinez Under the Supervision of: Dr. Efren Deleon M.D. First contact with patient: 16:55 Chief Complaint: ABDOMINAL PAIN Stated Complaint: ABDMONINAL PAIN, HEAVY CHEST History of Present Illness The patient is a 46 year old female who presents to the Emergency Room with complaints of constant, upper abdominal pain beginning 36 hours ago. The patient states she was asleep and woke up due to her abdominal pain. She reports it mildly radiates to her chest. The patient notes she had a subjective fever with chills and sweats. She states she tried ibuprofen and Zantac, but it is not helping. The patient reports nothing is helping. She notes she smokes one pack of cigarettes every three days. The patient denies nausea, vomiting, diarrhea, black stool, bloody stool, recent travel, coughing, taking hormone pills, using hormone creams, taking control, a history of abdominal surgeries, the chance of being , and using alcohol. Source of History: patient Onset: 36 hours ago Position: abdomen (upper) Timing: constant Associated Symptoms: + chest pain (mild), + back pain, No cough, No nausea, No vomiting, No diarrhea Note: Denies: black stool, bloody stools, taking control, the chance of being , a history of abdominal pain, recent travel Review of Systems See HPI for pertinent positives and negatives. A total of ten systems were reviewed and were otherwise negative. Past Medical & Surgical Medical Problems: (1) Depression (2) Hysterectomy (3) Kidney stone Family History Cancer Diabetes mellitus FH: back pain Gallbladder disease Heart disease Hypertension Kidney disease Kidney stones Lung disease Seizures Social History Smoking Status: Current Every Day Smoker Alcohol Use: none Drug Use: none Marital Status: Housing Status: lives with family Occupation Status: unemployed Current/Historical Medications Scheduled PRN Ondansetron Hcl (Zofran), 4 MG PO Q8H PRN for Nausea Allergies Coded Allergies: Hydromorphone (Verified Adverse Reaction, Mild, LIGHTHEADED AND VOMITING, 05/01/17) Physical Exam Vital Signs Date Time Temp Pulse Resp B/P (MAP) Pulse Ox O2 Delivery O2 Flow Rate FiO2 05/01/17 21:12 58 15 109/57 96 05/01/17 19:41 62 16 117/67 97 Room Air 1/25/18 17:27 62 18 152/56 97 Room Air 05/01/17 16:15 36.7 70 20 159/75 98 Room Air Physical Exam Physical Exam GENERAL: She is oriented to person, place, and time. She appears well- developed and well-nourished. She does not appear distressed. ____ HENT: Exam performed. Head: Normocephalic and atraumatic. Right Ear: External ear normal. No mastoid tenderness. Left Ear: External ear normal. No mastoid tenderness. Mouth/Throat: The oropharynx is clear and moist. No trismus in the jaw. No dental abscesses or uvula swelling. No oropharyngeal exudate or tonsillar abscesses. ____ EYES: Conjunctivae and EOM are normal. Pupils are equal, round, and reactive to light. Right eye exhibits no discharge. Left eye exhibits no discharge. No scleral icterus. ____ NECK: Normal range of motion. Neck supple. No JVD present. No spinous process tenderness present. No carotid bruit present. No rigidity. No tracheal deviation and normal range of motion present. No Brudzinski's sign and no Kernig 's sign noted. ____ CV: Normal rate, regular rhythm, normal heart sounds and intact distal pulses. There is no peripheral edema. Palpable radial pulses bue. ____ PULM/CHEST: Effort normal and breath sounds normal. No respiratory distress. No stridor. She has no wheezes. She has no rales. Chest Wall: She exhibits no tenderness. ____ ABD: The abdomen is soft. Bowel sounds are normal. She has no distension. No mass is present. There is tenderness in the epigastric region and RUQ upon palpation. Turner's sign is positive. There is no rebound, no guarding, and no tenderness at McBurney's point. Rovsig negative MUSC/SKEL: Normal range of motion. There is no peripheral edema, tenderness or deformity. LYMPH: No cervical adenopathy. ____ NEURO: She is alert and oriented to person, place, and time. She has normal strength. No cranial nerve deficit or sensory deficit. Coordination and gait normal. GCS eye subscore is 4. GCS verbal subscore is 5. GCS motor subscore is 6. cerebellar tests wnl. ____ SKIN: Skin is warm and dry. She is not diaphoretic. ____ PSYCH: She has a normal mood and affect. Her behavior is normal. Judgment and thought content normal. ____ Medical Decision & Procedures ER Provider Diagnostic Interpretation: Radiology results as stated below per my review and radiologist interpretation: PA CHEST WITH ABDOMINAL SERIES CLINICAL HISTORY: Epigastric abdominal pain. FINDINGS: A PA chest radiograph is compared to study dated 12/13/2016. The cardiomediastinal silhouette is unremarkable. The lungs and pleural spaces are clear. No pneumothorax is seen. The bony thorax is grossly intact. Supine and erect abdominal radiographs are correlated with abdominal CT dated 01/30/2016. There is a nonobstructed abdominal bowel gas pattern. Moderate fecal retention is noted in the colon. No evidence of intraperitoneal free air is seen. There are no abnormal abdominal calcifications. A small phlebolith is present in the left hemipelvis. The lumbosacral spine and bony pelvis appear intact. IMPRESSION: 1. No active disease in the chest. 2. Nonobstructed abdominal bowel gas pattern. Electronically signed by: Jimmy Richey M.D. 05/01/2017 6:28 PM Dictated Date/Time: 05/01/2017 6:27 PM ULTRASOUND RIGHT UPPER QUADRANT ABDOMEN CLINICAL HISTORY: Right upper quadrant abdominal pain. COMPARISON STUDY: Abdominal CT dated 01/30/2016. TECHNIQUE: Real-time, grayscale, and color flow sonography of the right upper quadrant of the abdomen was performed. Images are reviewed in the transverse and longitudinal planes. FINDINGS: Liver: The liver is normal in size and echotexture. There is no intrahepatic biliary ductal dilatation. The main portal vein is patent. Gallbladder: The gallbladder is normal in appearance. No gallstones are identified. There is no gallbladder wall thickening or pericholecystic fluid. A sonographic Turner's sign is reportedly absent. The common bile duct measures up to 0.4 cm in diameter. Pancreas: Visualized portions of the pancreatic head and body are normal in appearance. The splenic vein is patent. Right kidney: Survey images of the right kidney demonstrate normal size and echotexture. There is no hydronephrosis. Ascites: None. IMPRESSION: Unremarkable sonographic assessment of the right upper quadrant. No gallstones are identified. Electronically signed by: Jimmy Richey M.D. 05/01/2017 6:22 PM Dictated Date/Time: 05/01/2017 6:20 PM Laboratory Results 05/01/17 17:12 Red Blood Count 4.90, Mean Corpuscular Volume 85.3, Mean Corpuscular Hemoglobin 29.6, Mean Corpuscular Hemoglobin Concent 34.7, Mean Platelet Volume 10.4, Neutrophils (%) (Auto) 62.2, Lymphocytes (%) (Auto) 32.1, Monocytes (%) (Auto) 4.4, Eosinophils (%) (Auto) 0.9, Basophils (%) (Auto) 0.3, Neutrophils # (Auto) 4.28, Lymphocytes # (Auto) 2.21, Monocytes # (Auto) 0.30, Eosinophils # (Auto) 0.06, Basophils # (Auto) 0.02 05/01/17 17:12 Test 05/01/17 17:12 05/01/17 17:15 05/01/17 20:08 White Blood Count 6.88 K/uL (4.8-10.8) Red Blood Count 4.90 M/uL (4.2-5.4) Hemoglobin 14.5 g/dL (12.0-16.0) Hematocrit 41.8 % (37-47) Mean Corpuscular Volume 85.3 fL (80-100) Mean Corpuscular Hemoglobin 29.6 pg (25-34) Mean Corpuscular Hemoglobin Concent 34.7 g/dl (32-36) Platelet Count 184 K/uL (130-400) Mean Platelet Volume 10.4 fL (7.4-10.4) Neutrophils (%) (Auto) 62.2 % Lymphocytes (%) (Auto) 32.1 % Monocytes (%) (Auto) 4.4 % Eosinophils (%) (Auto) 0.9 % Basophils (%) (Auto) 0.3 % Neutrophils # (Auto) 4.28 K/uL (1.4-6.5) Lymphocytes # (Auto) 2.21 K/uL (1.2-3.4) Monocytes # (Auto) 0.30 K/uL (0.11-0.59) Eosinophils # (Auto) 0.06 K/uL (0-0.5) Basophils # (Auto) 0.02 K/uL (0-0.2) RDW Standard Deviation 41.4 fL (36.4-46.3) RDW Coefficient of Variation 13.3 % (11.5-14.5) Immature Granulocyte % (Auto) 0.1 % Immature Granulocyte # (Auto) 0.01 K/uL (0.00-0.02) D-Dimer 330 ug/L FEU (0-500) Anion Gap 5.0 mmol/L (3-11) Est Creatinine Clear Calc Drug Dose 75.6 ml/min Estimated GFR () 79.2 Estimated GFR (Non- 68.3 BUN/Creatinine Ratio 22.5 (10-20) Calcium Level 9.5 mg/dl (8.5-10.1) Total Bilirubin 0.4 mg/dl (0.2-1) Aspartate Amino Transf (AST/SGOT) 15 U/L (15-37) Alanine Aminotransferase (ALT/SGPT) 21 U/L (12-78) Alkaline Phosphatase 81 U/L (45-117) Total Protein 7.8 gm/dl (6.4-8.2) Albumin 4.0 gm/dl (3.4-5.0) Globulin 3.8 gm/dl (2.5-4.0) Albumin/Globulin Ratio 1.0 (0.9-2) Lipase 171 U/L (73-393) Urine Color YELLOW Urine Appearance CLEAR (CLEAR) Urine pH 6.0 (4.5-7.5) Urine Specific [place] 1.024 (1.000-1.030) Urine Protein NEG (NEG) Urine Glucose (UA) NEG (NEG) Urine Ketones NEG (NEG) Urine Occult Blood NEG (NEG) Urine Nitrite NEG (NEG) Urine Bilirubin NEG (NEG) Urine Urobilinogen NEG (NEG) Urine Leukocyte Esterase TRACE (NEG) Urine WBC (Auto) 1-5 /hpf (0-5) Urine RBC (Auto) 0-4 /hpf (0-4) Urine Hyaline Casts (Auto) 0 /lpf (0-5) Urine Epithelial Cells (Auto) 20-30 /lpf (0-5) Urine Bacteria (Auto) NEG (NEG) Urine Test NEG (NEG) Troponin I < 0.015 ng/ml (0-0.045) Laboratory results reviewed by me Medications Administered Medications (Trade) Dose Ordered Sig/Heriberto Route Start Time Stop Time Status Last Admin Dose Admin Sodium Chloride 1,000 ml @ 999 mls/hr Q1H1M STAT IV 05/01/17 16:57 05/01/17 17:57 DC 05/01/17 17:21 999 MLS/HR Ondansetron HCl (Zofran Inj) 4 mg NOW STAT IV 05/01/17 16:57 05/01/17 16:58 DC 05/01/17 17:22 4 MG ECG Indication: abdominal pain Rate (beats per minute): 64 Rhythm: sinus rhythm Findings: no acute ischemic change, no ectopy, other (SC, QRS, and QTc are within normal limits, no ST evaluation or depression) Change: Patient's electrocardiogram was interpreted by me. ED Course 1701: The patient was evaluated in room C01B. A complete history and physical exam was performed. 1856: I reevaluated the patient and updated her of her current exam findings. Her repeat abdominal exam was within normal limits. Labs and imaging were within normal limits. She believes her discomfort is from eating tomatoes again because they are acidic. Her troponin will be repeated, if negative, she will be discharged home. 1951: I reevaluated the patient and vital signs stable repeat trop within normal limits repeat troponin within normal limits. DISCHARGE - Plan of care discussed with patient and questions answered. The patient was given both verbal and printed discharge instructions. The patient verbalized understanding and ability to comply. The patient is to seek outpatient follow up as noted in the discharge instructions. The patient verbalized understanding and ability to comply. The patient is discharged in stable condition. The patient was instructed to return for worsening symptoms. Medical Decision Vital signs stable. Serial abdominal exams status post analgesia within normal limits no pain on palpation of the abdomen. Labs within normal limits including 2 sets of troponins. X-ray and ultrasound of the abdomen within normal limits. Initial be discharged home with follow up PCP. Impression Primary Impression: Abdominal pain Scribe Attestation The scribe's documentation has been prepared under my direction and personally reviewed by me in its entirety. I confirm that the note above accurately reflects all work, treatment, procedures, and medical decision making performed by me. The chart was completed utilizing [employer] voice recognition software. Grammatical errors, random word insertions, pronoun errors, and incomplete sentences are an occasional consequence of this system due to software limitations, ambient noise, and hardware issues. Any formal questions or concerns about the content, text, or information contained within the body of this dictation should be directly addressed to the physician for clarification. Departure Information Dispostion Home / Self-Care Prescriptions Ondansetron Hcl (ZOFRAN) 4 Mg Tab 4 MG PO Q8H Y for Nausea for 10 Days, #30 TAB Prov: Efren Deleon M.D. 05/01/17 Referrals Lakia Alvarez D.O. (PCP) Forms Call Back Authorization, HOME CARE DOCUMENTATION FORM, IMPORTANT VISIT INFORMATION Patient Instructions Abdominal Pain - [facility], [facility] Health Problem Qualifiers Primary Impression: Abdominal pain Abdominal location: epigastric Qualified Codes: R10.13 - Epigastric pain
[2017-05-01 17:24] LABS: BASO % 0.3 %; BASO ABS # 0.02 K/uL (0-0.2); EOS % 0.9 %; EOS ABS # 0.06 K/uL (0-0.5); HEMATOCRIT 41.8 % (37-47); HEMOGLOBIN 14.5 g/dL (12.0-16.0); IG# 0.01 K/uL (0.00-0.02); LYMPH % 32.1 %; LYMPH ABS # 2.21 K/uL (1.2-3.4); MEAN CELL VOLUME 85.3 fL (80-100); MEAN CORPUSCULAR HEMOGLOBIN 29.6 pg (25-34); MEAN CORPUSCULAR HGB CONC 34.7 g/dl (32-36); MEAN PLATELET VOLUME 10.4 fL (7.4-10.4); MONO % 4.4 %; NEUT % 62.2 %; NEUT ABS # 4.28 K/uL (1.4-6.5); PLATELET COUNT 184 K/uL (130-400); RED CELL DISTRIBUTION WIDTH CV 13.3 % (11.5-14.5); RED CELL DISTRIBUTION WIDTH SD 41.4 fL (36.4-46.3); WHITE BLOOD COUNT 6.88 K/uL (4.8-10.8)
[2017-05-01 17:41] LABS: ALT/SGPT 21 U/L (12-78); BLOOD UREA NITROGEN 22 mg/dl (7-18); CALCIUM 9.5 mg/dl (8.5-10.1); CARBON DIOXIDE 27 mmol/L (21-32); CREATININE 0.99 mg/dl (0.60-1.20); GLUCOSE 89 mg/dl (70-99); LIPASE 171 U/L (73-393); POTASSIUM 3.9 mmol/L (3.5-5.1); SODIUM 139 mmol/L (136-145)
[2017-05-01 17:46] LABS: ALKALINE PHOSPHATASE 81 U/L (45-117); AST/SGOT 15 U/L (15-37); TOTAL PROTEIN 7.8 gm/dl (6.4-8.2)
--- NOTE | 2017-05-01 18:23 | DIAGNOSTIC IMAGING REPORT ---
ULTRASOUND RIGHT UPPER QUADRANT ABDOMEN CLINICAL HISTORY: Right upper quadrant abdominal pain. COMPARISON STUDY: Abdominal CT dated 01/30/2016. TECHNIQUE: Real-time, grayscale, and color flow sonography of the right upper quadrant of the abdomen was performed. Images are reviewed in the transverse and longitudinal planes. FINDINGS: Liver: The liver is normal in size and echotexture. There is no intrahepatic biliary ductal dilatation. The main portal vein is patent. Gallbladder: The gallbladder is normal in appearance. No gallstones are identified. There is no gallbladder wall thickening or pericholecystic fluid. A sonographic Turner's sign is reportedly absent. The common bile duct measures up to 0.4 cm in diameter. Pancreas: Visualized portions of the pancreatic head and body are normal in appearance. The splenic vein is patent. Right kidney: Survey images of the right kidney demonstrate normal size and echotexture. There is no hydronephrosis. Ascites: None. IMPRESSION: Unremarkable sonographic assessment of the right upper quadrant. No gallstones are identified. Electronically signed by: Jimmy Richey M.D. 05/01/2017 6:22 PM Dictated Date/Time: 05/01/2017 6:20 PM
--- NOTE | 2017-05-01 18:29 | DIAGNOSTIC IMAGING REPORT ---
PA CHEST WITH ABDOMINAL SERIES CLINICAL HISTORY: Epigastric abdominal pain. FINDINGS: A PA chest radiograph is compared to study dated 12/13/2016. The cardiomediastinal silhouette is unremarkable. The lungs and pleural spaces are clear. No pneumothorax is seen. The bony thorax is grossly intact. Supine and erect abdominal radiographs are correlated with abdominal CT dated 01/30/2016. There is a nonobstructed abdominal bowel gas pattern. Moderate fecal retention is noted in the colon. No evidence of intraperitoneal free air is seen. There are no abnormal abdominal calcifications. A small phlebolith is present in the left hemipelvis. The lumbosacral spine and bony pelvis appear intact. IMPRESSION: 1. No active disease in the chest. 2. Nonobstructed abdominal bowel gas pattern. Electronically signed by: Jimmy Richey M.D. 05/01/2017 6:28 PM Dictated Date/Time: 05/01/2017 6:27 PM
[2017-05-01] MEDS ORDERED: ONDA4TAB46 PO (21:00)
[2017-05-01 21:12] VITALS: BP 109/57; PULSE 58; O2SAT 96
== END 2017-05-01 21:13 | disposition home or self-care (01) ==
LOC: C.EDB 16:00 → C.EDC 21:13
DX: R10.13 Epigastric pain (principal); F32.9 Major depressive disorder, single episode, unspecified; Z83.3 Family history of diabetes mellitus; Z82.49 Family history of ischemic heart disease and other diseases of the circulatory system; Z82.0 Family history of epilepsy and other diseases of the nervous system; F17.200 Nicotine dependence, unspecified, uncomplicated

== ENCOUNTER 2017-07-10 17:43 | Emergency (ER) | payer OTHER ==
[~2017-07-10] VITALS: Ht 165.1 cm; Wt 85.7 kg
[2017-07-10 17:55] VITALS: TEMP 36.7; Ht 165.1 cm; Wt 85.7 kg
[2017-07-10] MEDS ORDERED: KETOROLAC TROMETHAMINE 30 MG/ML VIAL IV STA (18:14)
[2017-07-10] MEDS ORDERED: ONDANSETRON INJ 2 MG/ML 2 ML VIAL IV STA (18:14)
[2017-07-10] MEDS ORDERED: SODIUM CHLORIDE 0.9% 1000ML 1,000 ML IV STA (18:14)
--- NOTE | 2017-07-10 18:16 | EMERGENCY ROOM VISIT NOTE ---
History Report prepared by Leonela: Lamberto Christianson Under the Supervision of: Dr. Rasta Rubin D.O. First contact with patient: 18:02 Chief Complaint: FLU LIKE SX Stated Complaint: VOMITING, CHEST/NECK PAIN, DIZZY, COUGH History of Present Illness The patient is a 46 year old white female with a past medical history of kidney stones and depression who presents to the Emergency Room with complaints of persistent vomiting and fevers that began on Friday, 3 days ago. The patient states that she was watching her daughter over the weekend when she got sick and vomited. She began to vomit Friday morning, and spiked a fever of 101. She then developed diarrhea two days ago, and has a persistent cough. Nothing improves/relieves her symptoms. She has also been experiencing some pain over the left side of her chest and dizziness with her cough recently. Source of History: patient Onset: 3 days ago Position: chest (left sided CP with cough ) Symptom Intensity: Fever of 101 Quality: other (Fever, nausea) Modifying Factors (Worsening): other (N/A) Modifying Factors (Relieving): other (N/A) Associated Symptoms: + cough, + chest pain, + vomiting Review of Systems See HPI for pertinent positives and negatives. A total of ten systems were reviewed and were otherwise negative. Past Medical & Surgical Medical Problems: (1) Depression (2) Hysterectomy (3) Kidney stone Family History Cancer Diabetes mellitus FH: back pain Gallbladder disease Heart disease Hypertension Kidney disease Kidney stones Lung disease Seizures Social History Smoking Status: Current Every Day Smoker Alcohol Use: none Drug Use: none Marital Status: Housing Status: lives with family Occupation Status: unemployed Current/Historical Medications Scheduled PRN Ondansetron Hcl (Zofran), 4 MG PO Q8H PRN for Nausea Allergies Coded Allergies: Hydromorphone (Verified Adverse Reaction, Mild, LIGHTHEADED AND VOMITING, 05/01/17) Physical Exam Vital Signs Date Time Temp Pulse Resp B/P (MAP) Pulse Ox O2 Delivery O2 Flow Rate FiO2 07/10/17 20:35 75 20 121/70 97 Room Air 07/10/17 18:35 74 07/10/17 17:55 36.7 77 20 139/79 97 Room Air Physical Exam GENERAL: Awake, alert, well-appearing, NAD HENT: Normocephalic, atraumatic. EYES: Normal conjunctiva. Sclera non-icteric. NECK: Supple. No nuchal rigidity. FROM. RESPIRATORY: CTAB, no rhonchi, wheezing, crackles CARDIAC: RRR, no MRG ABDOMEN: Soft, NTND, BS+ MSK: No chest wall TTP, no LE edema NEURO: GCS 15, CN 2-12 intact, moves all 4s on command SKIN: No rash or jaundice noted. Medical Decision & Procedures ER Provider Diagnostic Interpretation: Radiology results as stated below per my review and radiologist interpretation: CHEST ONE VIEW PORTABLE CLINICAL HISTORY: 46 years-old Female presenting with ABDOMINAL PAIN/GI. TECHNIQUE: Portable upright AP view of the chest was obtained. COMPARISON: 05/01/2017. FINDINGS: Cardiomediastinal silhouette normal. Lungs and pleural spaces clear. Osseous structures normal. Upper abdomen normal. IMPRESSION: 1. No acute cardiopulmonary disease. Electronically signed by: Dung Pham M.D. 07/10/2017 6:42 PM Dictated Date/Time: 07/10/2017 6:42 PM Laboratory Results 07/10/17 18:34 Red Blood Count 5.10, Mean Corpuscular Volume 83.7, Mean Corpuscular Hemoglobin 30.0, Mean Corpuscular Hemoglobin Concent 35.8, Mean Platelet Volume 10.0, Neutrophils (%) (Auto) 75.8, Lymphocytes (%) (Auto) 17.9, Monocytes (%) (Auto) 5.1, Eosinophils (%) (Auto) 0.8, Basophils (%) (Auto) 0.1, Neutrophils # (Auto) 7.74, Lymphocytes # (Auto) 1.83, Monocytes # (Auto) 0.52, Eosinophils # (Auto) 0.08, Basophils # (Auto) 0.01 07/10/17 18:34 Test 07/10/17 18:34 White Blood Count 10.21 K/uL (4.8-10.8) Red Blood Count 5.10 M/uL (4.2-5.4) Hemoglobin 15.3 g/dL (12.0-16.0) Hematocrit 42.7 % (37-47) Mean Corpuscular Volume 83.7 fL (80-100) Mean Corpuscular Hemoglobin 30.0 pg (25-34) Mean Corpuscular Hemoglobin Concent 35.8 g/dl (32-36) Platelet Count 188 K/uL (130-400) Mean Platelet Volume 10.0 fL (7.4-10.4) Neutrophils (%) (Auto) 75.8 % Lymphocytes (%) (Auto) 17.9 % Monocytes (%) (Auto) 5.1 % Eosinophils (%) (Auto) 0.8 % Basophils (%) (Auto) 0.1 % Neutrophils # (Auto) 7.74 K/uL (1.4-6.5) Lymphocytes # (Auto) 1.83 K/uL (1.2-3.4) Monocytes # (Auto) 0.52 K/uL (0.11-0.59) Eosinophils # (Auto) 0.08 K/uL (0-0.5) Basophils # (Auto) 0.01 K/uL (0-0.2) RDW Standard Deviation 38.8 fL (36.4-46.3) RDW Coefficient of Variation 12.9 % (11.5-14.5) Immature Granulocyte % (Auto) 0.3 % Immature Granulocyte # (Auto) 0.03 K/uL (0.00-0.02) Anion Gap 7.0 mmol/L (3-11) Est Creatinine Clear Calc Drug Dose 67.3 ml/min Estimated GFR () 67.5 Estimated GFR (Non- 58.2 BUN/Creatinine Ratio 18.6 (10-20) Calcium Level 8.7 mg/dl (8.5-10.1) Total Bilirubin 0.4 mg/dl (0.2-1) Direct Bilirubin 0.1 mg/dl (0-0.2) Aspartate Amino Transf (AST/SGOT) 24 U/L (15-37) Alanine Aminotransferase (ALT/SGPT) 23 U/L (12-78) Alkaline Phosphatase 96 U/L (45-117) Total Protein 7.6 gm/dl (6.4-8.2) Albumin 3.6 gm/dl (3.4-5.0) Lipase 134 U/L (73-393) Influenza Type A Antigen Neg for Influ A (NEG) Influenza Type B Antigen Neg for Influ B (NEG) Laboratory results reviewed by me Medications Administered Medications (Trade) Dose Ordered Sig/Heriberto Route Start Time Stop Time Status Last Admin Dose Admin Sodium Chloride 1,000 ml @ 999 mls/hr Q1H1M STAT IV 07/10/17 18:14 07/10/17 19:14 DC 07/10/17 18:38 999 MLS/HR Ondansetron HCl (Zofran Inj) 4 mg NOW STAT IV 07/10/17 18:14 07/10/17 18:18 DC 07/10/17 18:39 4 MG Ketorolac Tromethamine (Toradol Inj) 30 mg NOW STAT IV 07/10/17 18:14 07/10/17 18:18 DC 07/10/17 18:39 30 MG ECG Per My Interpretation Indication: vomiting Rate (beats per minute): 79 Rhythm: normal sinus Findings: other (Normal intervals, normal axis, T-wave flattening in AvL) ED Course 1808: The patient was evaluated in room B10. A complete history and physical exam was performed. 1813: Ordered Toradol 30 mg IV, Zofran 4 mg IV, Sodium Chloride 1000 mL @ 999 mL/hr IV. 2006: I reevaluated the patient. Discussed results and discharge instructions: she verbalized understanding and agreement. The patient is ready for discharge. Medical Decision The patient is a 46 year old white female with a past medical history of kidney stones and depression who presents to the Emergency Room with complaints of persistent vomiting and fevers that began on Friday, 3 days ago Nursing notes reviewed. Ancillary studies and prior records reviewed. Differential diagnosis: Etiologies such as viral syndrome, otitis, pharyngitis, pneumonia, influenza, meningitis, urinary tract infection, sepsis, bacteremia, as well as others were entertained. Patient w/ viral type illness. Benign exam. No abdominal pain but has had n/v/ d. No recent travel, abx use, stream/well water. Blood work completed, CXR, EKG, IVF and meds. Blood work unremarkable. CXR clear. Feeling mildly improved. Flu neg. Tolerated PO. Given Rx's for zofran and rec's for OTC meds at home. The patient was educated about the findings as listed above. All questions were answered and the patient was pleased with the treatment. Return instructions were outlined and the patient was discharged in stable condition. Medication Reconcilliation Current Medication List: was personally reviewed by me Blood Pressure Screening Patient's blood pressure: Normal blood pressure Impression Primary Impression: Viral gastroenteritis Scribe Attestation The scribe's documentation has been prepared under my direction and personally reviewed by me in its entirety. I confirm that the note above accurately reflects all work, treatment, procedures, and medical decision making performed by me. Departure Information Dispostion Home / Self-Care Prescriptions Ondansetron Hcl (ZOFRAN) 4 Mg Tab 4 MG PO Q8H Y for Nausea, #12 TAB Prov: Ulises Carlos M.D. 07/10/17 Referrals Lakia Alvarez D.O. (PCP) Patient Instructions ED Gastroenteritis Viral, ED Viral Syndrome, My [facility] Additional Instructions Please return to the emergency department if you have worsening or recurrent symptoms not amenable to at-home treatment. Please call for a follow-up appointment with her primary care physician. Please take your medications as prescribed. If you have other concerns and/or complaints please feel free to also call your primary care physician's office or return the ED for further evaluation, management, and treatment. You may take 600 mg Ibuprofen every 6 hours as needed for pain with food for no more than 2 consecutive days. You may take tylenol 1000 mg every 6 hours as needed for pain. You may take motrin and tylenol separately or at the same time. Take your medications as prescribed. If taking an antibiotic consider taking a probiotic and/or eating yogurt, but at the least, please take with food as it can cause upset stomach. Try taking Pepcid 20 mg twice daily. You may also consider Tums and/or Maalox help with GI upset. Continue drinking copious amounts of clear fluids, consider a bland diet, and advance as tolerated. You have been examined and treated today on an emergency basis only. This is not a substitute for, or an effort to provide, complete comprehensive medical care. It is impossible to recognize and treat all injuries or illnesses in a single emergency department visit. It is therefore important that you follow up closely with [facility], your PCP, and/or your specialist(s). Call as soon as possible for an appointment. Thank you for your time and consideration. I look forward to speaking with you again soon. Please don't hesitate to call us if you have any questions.
--- NOTE | 2017-07-10 18:44 | DIAGNOSTIC IMAGING REPORT ---
CHEST ONE VIEW PORTABLE CLINICAL HISTORY: 46 years-old Female presenting with ABDOMINAL PAIN/GI. TECHNIQUE: Portable upright AP view of the chest was obtained. COMPARISON: 05/01/2017. FINDINGS: Cardiomediastinal silhouette normal. Lungs and pleural spaces clear. Osseous structures normal. Upper abdomen normal. IMPRESSION: 1. No acute cardiopulmonary disease. Electronically signed by: Dung Pham M.D. 07/10/2017 6:42 PM Dictated Date/Time: 07/10/2017 6:42 PM
[2017-07-10 18:47] LABS: BASO % 0.1 %; BASO ABS # 0.01 K/uL (0-0.2); EOS % 0.8 %; EOS ABS # 0.08 K/uL (0-0.5); HEMATOCRIT 42.7 % (37-47); HEMOGLOBIN 15.3 g/dL (12.0-16.0); IG# 0.03 K/uL (0.00-0.02); LYMPH % 17.9 %; LYMPH ABS # 1.83 K/uL (1.2-3.4); MEAN CELL VOLUME 83.7 fL (80-100); MEAN CORPUSCULAR HGB CONC 35.8 g/dl (32-36); MONO % 5.1 %; MONO ABS # 0.52 K/uL (0.11-0.59); NEUT % 75.8 %; NEUT ABS # 7.74 K/uL (1.4-6.5); PLATELET COUNT 188 K/uL (130-400); RED CELL DISTRIBUTION WIDTH CV 12.9 % (11.5-14.5); RED CELL DISTRIBUTION WIDTH SD 38.8 fL (36.4-46.3); WHITE BLOOD COUNT 10.21 K/uL (4.8-10.8)
[2017-07-10 19:05] LABS: ALBUMIN 3.6 gm/dl (3.4-5.0); CALCIUM 8.7 mg/dl (8.5-10.1); CREATININE 1.13 mg/dl (0.60-1.20); POTASSIUM 3.5 mmol/L (3.5-5.1)
[2017-07-10 19:08] LABS: TOTAL PROTEIN 7.6 gm/dl (6.4-8.2)
[2017-07-10 19:22] LABS: INFLUENZA B ANTIGEN Neg for Influ B (NEG)
[2017-07-10] MEDS ORDERED: ONDA4TAB46 PO (20:03)
[2017-07-10 20:35] VITALS: BP 121/70; PULSE 75; O2SAT 97
== END 2017-07-10 20:38 | disposition home or self-care (01) ==
LOC: C.EDB 17:44
DX: K52.9 Noninfective gastroenteritis and colitis, unspecified (principal); Z87.442 Personal history of urinary calculi; F32.9 Major depressive disorder, single episode, unspecified; Z90.710 Acquired absence of both cervix and uterus; Z83.3 Family history of diabetes mellitus; Z82.49 Family history of ischemic heart disease and other diseases of the circulatory system; Z84.1 Family history of disorders of kidney and ureter; Z82.0 Family history of epilepsy and other diseases of the nervous system; F17.210 Nicotine dependence, cigarettes, uncomplicated; Z88.5 Allergy status to narcotic agent

== ENCOUNTER 2017-08-03 17:06 | Emergency (ER) | payer OTHER ==
[~2017-08-03] VITALS: Ht 165.1 cm; Wt 89.1 kg
[~2017-08-03 17:06] MED LIST changes: +ONDA4TAB46 PO; -PANT1TAB3 PO
[2017-08-03 17:20] VITALS: TEMP 36.8; Ht 165.1 cm; Wt 89.1 kg
[2017-08-03] MEDS ORDERED: ONDANSETRON INJ 2 MG/ML 2 ML VIAL IV STA (17:32)
[2017-08-03] MEDS ORDERED: MoRPHine SULFATE 4 MG/ML 1 ML CARP\\VIAL IV STA (17:32)
[2017-08-03 18:01] LABS: BASO % 0.3 %; BASO ABS # 0.02 K/uL (0-0.2); EOS % 0.8 %; EOS ABS # 0.05 K/uL (0-0.5); HEMATOCRIT 41.8 % (37-47); HEMOGLOBIN 14.3 g/dL (12.0-16.0); IG# 0.02 K/uL (0.00-0.02); LYMPH % 29.9 %; MEAN CELL VOLUME 85.7 fL (80-100); MEAN CORPUSCULAR HEMOGLOBIN 29.3 pg (25-34); MEAN CORPUSCULAR HGB CONC 34.2 g/dl (32-36); MEAN PLATELET VOLUME 9.8 fL (7.4-10.4); MONO % 3.9 %; MONO ABS # 0.25 K/uL (0.11-0.59); NEUT % 64.8 %; NEUT ABS # 4.11 K/uL (1.4-6.5); PLATELET COUNT 186 K/uL (130-400); RED CELL DISTRIBUTION WIDTH CV 13.4 % (11.5-14.5); WHITE BLOOD COUNT 6.35 K/uL (4.8-10.8)
[2017-08-03 18:17] LABS: CALCIUM 8.9 mg/dl (8.5-10.1); CREATININE 0.87 mg/dl (0.60-1.20); POTASSIUM 3.9 mmol/L (3.5-5.1)
[2017-08-03] MEDS ORDERED: OXYC1TAB3 PO (18:55)
[2017-08-03 19:04] VITALS: BP 152/72; PULSE 78; O2SAT 98
--- NOTE | 2017-08-03 23:43 | EMERGENCY ROOM VISIT NOTE ---
History Report prepared by Leonela: Lamberto Christianson Under the Supervision of: Dr. Rasta Rubin D.O. First contact with patient: 17:23 Chief Complaint: FACIAL PAIN/INJURY Stated Complaint: RIGHT FACE AND JAW AND NECK PAIN History of Present Illness The patient is a 47 year old female who presents to the Emergency Room with complaints of worsening pain in her right ear, jaw, and neck that began yesterday at 0230 in the morning. The patient states that the pain woke her up from sleep yesterday morning. She describes the pain as a "burning" sensation. She is aware of 3 bad teeth that are present on the lower left, and thought that it could be causing her pain. Her pain is actually slightly improved by chewing. She had some left over Amoxicillin, and started taking it in case an infection in the teeth was present. The patient has also taken 6 Ibuprofen today without any relief. She denies any change in vision, chest pain, shortness of breath, nausea, vomiting, diarrhea, pain with urination, and melena. No weakness or numbness in her arms or legs. Source of History: patient Onset: Yesteday morning Position: head (rigth side of her jaw), ear (right), neck (right) Quality: burning Timing: worsening Modifying Factors (Relieving): other (Chewing) Associated Symptoms: No chest pain, No SOB, No nausea, No vomiting Review of Systems See HPI for pertinent positives & negatives. A total of 10 systems reviewed and were otherwise negative. Past Medical & Surgical Medical Problems: (1) Depression (2) Hysterectomy (3) Kidney stone Family History Cancer Diabetes mellitus FH: back pain Gallbladder disease Heart disease Hypertension Kidney disease Kidney stones Lung disease Seizures Social History Smoking Status: Current Every Day Smoker Alcohol Use: none Drug Use: none Marital Status: Housing Status: lives with family Occupation Status: unemployed Current/Historical Medications Scheduled PRN Ondansetron Hcl (Zofran), 4 MG PO Q8H PRN for Nausea Oxycodone Immediate Rel Tab (Roxicodone Ir), 5 MG PO Q6H PRN for Pain Allergies Coded Allergies: Hydromorphone (Verified Adverse Reaction, Mild, LIGHTHEADED AND VOMITING, 08/03/17) Physical Exam Vital Signs Date Time Temp Pulse Resp B/P (MAP) Pulse Ox O2 Delivery O2 Flow Rate FiO2 08/03/17 19:04 78 18 152/72 98 08/03/17 18:05 55 18 162/88 98 Room Air 08/03/17 17:20 36.8 62 20 179/98 100 Room Air Physical Exam GENERAL: Sitting up in bed, alert, Holding right side of face, well appearing, well nourished, no distress, non-toxic HEAD: No tenderness over the temporal artery. EYE EXAM: normal conjunctiva. PERRL and EOM's intact. EARS: TMs clear bilaterally. OROPHARYNX: no exudate, no erythema, lips, buccal mucosa, and tongue normal and mucous membranes are moist. Poor dentition in the lower jaw, without signs of abscess or pain. No teeth present in the upper jaw. NECK: supple, no nuchal rigidity, no adenopathy, non-tender LUNGS: Clear to auscultation. Normal chest wall mechanics HEART: no murmurs, S1 normal and S2 normal ABDOMEN: abdomen soft, non-tender, normo-active bowel sounds, no masses, no rebound or guarding. SKIN: no rashes and no bruising UPPER EXTREMITIES: upper extremities are grossly normal. LOWER EXTREMITIES: No pitting edema. NEURO EXAM: Normal sensorium, cranial nerves II-XII grossly intact, normal speech, no weakness of arms, no weakness of legs. Medical Decision & Procedures Laboratory Results 08/03/17 17:42 Red Blood Count 4.88, Mean Corpuscular Volume 85.7, Mean Corpuscular Hemoglobin 29.3, Mean Corpuscular Hemoglobin Concent 34.2, Mean Platelet Volume 9.8, Neutrophils (%) (Auto) 64.8, Lymphocytes (%) (Auto) 29.9, Monocytes (%) (Auto) 3.9, Eosinophils (%) (Auto) 0.8, Basophils (%) (Auto) 0.3, Neutrophils # (Auto) 4.11, Lymphocytes # (Auto) 1.90, Monocytes # (Auto) 0.25, Eosinophils # (Auto) 0.05, Basophils # (Auto) 0.02 08/03/17 17:42 Test 08/03/17 17:42 White Blood Count 6.35 K/uL (4.8-10.8) Red Blood Count 4.88 M/uL (4.2-5.4) Hemoglobin 14.3 g/dL (12.0-16.0) Hematocrit 41.8 % (37-47) Mean Corpuscular Volume 85.7 fL (80-100) Mean Corpuscular Hemoglobin 29.3 pg (25-34) Mean Corpuscular Hemoglobin Concent 34.2 g/dl (32-36) Platelet Count 186 K/uL (130-400) Mean Platelet Volume 9.8 fL (7.4-10.4) Neutrophils (%) (Auto) 64.8 % Lymphocytes (%) (Auto) 29.9 % Monocytes (%) (Auto) 3.9 % Eosinophils (%) (Auto) 0.8 % Basophils (%) (Auto) 0.3 % Neutrophils # (Auto) 4.11 K/uL (1.4-6.5) Lymphocytes # (Auto) 1.90 K/uL (1.2-3.4) Monocytes # (Auto) 0.25 K/uL (0.11-0.59) Eosinophils # (Auto) 0.05 K/uL (0-0.5) Basophils # (Auto) 0.02 K/uL (0-0.2) RDW Standard Deviation 42.0 fL (36.4-46.3) RDW Coefficient of Variation 13.4 % (11.5-14.5) Immature Granulocyte % (Auto) 0.3 % Immature Granulocyte # (Auto) 0.02 K/uL (0.00-0.02) Anion Gap 5.0 mmol/L (3-11) Est Creatinine Clear Calc Drug Dose 88.1 ml/min Estimated GFR () 91.9 Estimated GFR (Non- 79.3 BUN/Creatinine Ratio 16.2 (10-20) Calcium Level 8.9 mg/dl (8.5-10.1) Laboratory results per my review. Medications Administered Medications (Trade) Dose Ordered Sig/Heriberto Route Start Time Stop Time Status Last Admin Dose Admin Morphine Sulfate (MoRPHine SULFATE INJ) 4 mg NOW STAT IV 08/03/17 17:32 08/03/17 17:33 DC 08/03/17 18:03 4 MG Ondansetron HCl (Zofran Inj) 4 mg NOW STAT IV 08/03/17 17:32 08/03/17 17:33 DC 08/03/17 18:02 4 MG ED Course ED COURSE: Vital signs were reviewed and showed hypertensive vitals. The patients medical record was reviewed The above diagnostic studies were performed and reviewed. ED treatments and interventions as stated above. 1725: The patient was evaluated in room C11B. A complete history and physical examination was performed. 1732: Ordered Zofran 4 mg IV, Morphine Sulfate 4 mg IV. 1901: Upon reevaluation, the patient is resting in bed.I discussed my findings with the patient and she understands and agrees with the treatment plan. Based on the patients age, coexisting illnesses, exam and lab findings the decision to treat as an outpatient was made. The patient remained stable while under my care. The patient appeared well at the time of discharge. Medical Decision Differential diagnosis includes; abscess, cellulitis, dental infection, temporal arteritis, Lyme's disease, trigeminal neuralgia, parotid issues, and fracture. Patient is a 47-year-old female who presents the ER for right-sided facial pain. Pain is located over her right parotid. Does not include her temporal artery. She has no other neurological complaints. TM is clear. No dental pain although poor dentition. CBC and BMP were unremarkable. Based on symptoms I do question trigeminal neuralgia versus parotid. Without swelling or erythema I favor that this likely trigeminal neuralgia. She was given IV narcotics. She is discharged follow-up with PCP as an outpatient with [facility]. Discussed with Pt concerning signs and symptoms to watch out for. Pt was instructed to follow up with their PCP and discussed with the patient their option to return to the ED at anytime for persistent or worsening symptoms. The appropriate anticipatory guidance and out-patient management, including indications for return to the emergency department, were explained at length to the patient and understood. [place] Drug Monitoring Program Search Results: patient reviewed within database, no issues identified Medication Reconcilliation Current Medication List: was personally reviewed by me Blood Pressure Screening Patient's blood pressure: Elevated blood pressure Blood pressure disposition: Elevated BP felt to be situational Impression Primary Impression: Facial pain Scribe Attestation The scribe's documentation has been prepared under my direction and personally reviewed by me in its entirety. I confirm that the note above accurately reflects all work, treatment, procedures, and medical decision making performed by me. Departure Information Dispostion Home / Self-Care Prescriptions Oxycodone Immediate Rel Tab (ROXICODONE IR) 5 Mg Tab 5 MG PO Q6H Y for Pain for 3 Days, #12 TAB Prov: Rasta Rubin, DO 08/03/17 Referrals Lakia Alvarez D.O. (PCP) Forms HOME CARE DOCUMENTATION FORM, IMPORTANT VISIT INFORMATION Patient Instructions My [facility] Additional Instructions Please follow up with your primary care doctor with in the next 24 hours. Any worsening of your symptoms, please return to the ED immediately. This includes any fevers greater than 100.4, worsening pain, chest pain, shortness breath, persistent nausea, vomiting, unable to eat or drink, or any other concerning signs or symptoms from your standpoint. You were given medications during this visit that will inhibit your ability to drive, operate machinery and work. Please do NOT drive, operate machinery or work for the next 12hrs. You were also given a prescription for a narcotic. While taking this medication you should also not drive, operate machinery and or work.
== END 2017-08-03 19:05 | disposition home or self-care (01) ==
LOC: C.EDB 17:08 → C.EDC 19:05
DX: R51 Headache (principal); H92.01 Otalgia, right ear; R68.84 Jaw pain; M54.2 Cervicalgia; K08.89 Other specified disorders of teeth and supporting structures; F17.200 Nicotine dependence, unspecified, uncomplicated; Z88.6 Allergy status to analgesic agent

== ENCOUNTER 2020-02-28 12:51 | Observation (INO) ==
[2020-02-28] MEDS ORDERED: OPTIRAY 320 125ml IV ONE (13:14)
[2020-02-28] MEDS ORDERED: SODIUM CHLORIDE 0.9% 1000ML 1,000 ML IV SCH (13:15)
[2020-02-28 13:23] LABS: Basophils # (auto) 0.02 K/uL (0-0.2); Basophils % (auto) 0.3 %; Eosinophils # (auto) 0.03 K/uL (0-0.5); Eosinophils % (auto) 0.5 %; Hematocrit (blood only) 45.8 % (37-47); Immature Granulocytes # (auto) 0.02 K/uL (0.00-0.02); Immature Granulocytes % (auto) 0.3 %; Lymphocytes # (auto) 1.54 K/uL (1.2-3.4); Lymphocytes % (auto) 24.1 %; Mean Corpuscular Hemoglobin 28.8 pg (25-34); Mean Corpuscular Hgb Conc 32.8 g/dL (32-36); Mean Corpuscular Volume 87.9 fL (80-100); Mean Platelet Volume 10.5 fL (7.4-10.4); Monocytes # (auto) 0.24 K/uL (0.11-0.59); Monocytes % (auto) 3.8 %; Neutrophils # (auto) 4.53 K/uL (1.4-6.5); Platelet Count 229 K/uL (130-400); RDW Coefficient of Variation 13.2 % (11.5-14.5); RDW Standard Deviation 42.6 fL (36.4-46.3); Red Blood Count 5.21 M/uL (4.2-5.4); White Blood Count 6.38 K/uL (4.8-10.8)
--- NOTE | 2020-02-28 13:32 | CT Scan Report ---
CT head/brain wo con CLINICAL HISTORY: 49 years-old Female with Stroke evaluation . Acute strokelike symptoms TECHNIQUE: Multiple axial CT images of the head were obtained without contrast. A dose lowering tech nique was utilized adhering to the principles of ALARA. COMPARISON: CTA head and neck of same day FINDINGS: No acute intracranial hemorrhage, midline shift, intracranial mass, hydrocephalus, territorial ischem ia or abnormal extra-axial collection. The calvarium is intact. Mastoid air cells are clear. There is mild mucoperiosteal thickening of the left maxillary sinus. Remaining paranasal sinuses are clear. The soft tissues and orbits are unremar kable. IMPRESSION: No acute intracranial abnormality. ACT 112: Negative or not required by law. The above report was generated using voice recognition software. It may contain grammatical, syntax o r spelling errors. Electronically signed by: Salvador Dover M.D. 02/28/2020 1:31 PM
[2020-02-28 13:34] LABS: Partial Thromboplastin Time 26.7 Seconds (21.0-31.0); Prothrombin Time 10.3 Seconds (9.0-12.0)
--- NOTE | 2020-02-28 13:39 | CT Scan Report ---
CT angio neck with con, CT angio head w con CLINICAL HISTORY: 49 years-old Female with Stroke evaluation. Acute strokelike symptoms COMPARISON STUDY: Head CT of same day TECHNIQUE: Following the IV administration of 120 of Optiray 320, CT angiogram of the head and neck w as performed from the aortic arch to the skull apex. Images are reviewed in the axial, sagittal, and coronal planes. 3-D MIPS images are created and assessed. IV contrast was administered without compli cation. All measurements were calculated based on NASCET criteria. A dose lowering technique was uti lized adhering to the principles of ALARA. CT DOSE: 1159.33 mGy.cm FINDINGS: The opacified pulmonary arterial tree is unremarkable. Three-vessel morphology of the thoracic aortic arch. Patency of the innominate and imaged subclavian arteries. The bilateral common and internal ca rotid arteries are widely patent. The middle and anterior cerebral arteries are also patent. Dominant left vertebral artery. Bilateral vertebral arteries are patent. Patent basilar and posterior cerebral arteries with note made of origin on the left. No aneurysm, dissection, high-grade st enosis or proximal branch occlusion. Cerebral venous sinuses are patent. There is no abnormal intracr anial enhancement. The lung apices are clear without pneumothorax. Multinodular thyroid with nodules on the right measur ing up to 1.4 cm. No adenopathy. Patent airway. No acute fracture. Mucoperiosteal thickening of the m axillary sinuses, left greater than right. IMPRESSION: 1. Unremarkable CTA of the head and neck without aneurysm, dissection, high-grade stenosis or proxima l branch occlusion. 2. Multinodular thyroid. 3. Mild right and sema-aa-mnkuhhvd left maxillary sinus mucoperiosteal thickening. ACT 112: Negative or not required by law. The above report was generated using voice recognition software. It may contain grammatical, syntax o r spelling errors. Electronically signed by: Salvador Dover M.D. 02/28/2020 1:38 PM
[2020-02-28 13:47] LABS: Albumin Level 4.2 gm/dl (3.4-5.0); BUN Creatinine Ratio 16.3 (10-20); Blood Urea Nitrogen 17 mg/dl (7-18); Calcium 9.8 mg/dl (8.5-10.1); Carbon Dioxide 28 mmol/L (21-32); Chloride 108 mmol/L (98-107); Creatinine Clr Calc Pharmacy 76.1 ml/min; Est GFR (African American) 73.9; Est GFR (Non-African American) 63.8; Glucose 107 mg/dl (70-99); Magnesium 2.5 mg/dl (1.8-2.4); Sodium 141 mmol/L (136-145)
--- NOTE | 2020-02-28 13:50 | Emergency Department Note ---
Impression & Plan Stroke-like symptoms, Acute left-sided weakness ED Provider Note NAME: MASON MEHTA AGE: 49 SEX: F : 1970 ARRIVES VIA: Walk-In INFORMANT: Patient, ED PROVIDER(S): Jorge Crenshaw DO CHIEF COMPLAINT: Weakness HPI: The patient is a 49-year-old female who presented to the emergency department through triage for weakness. The patient describes an episode at approximately 930 this morning where she felt numbness and tingling on the left side of her face. She also noticed a slight headache on the left side of her head. She also noticed that she was not able to use her left hand as well and felt numbness on the whole left side of her body. She states the symptoms were constant but she has no significant headache at this time. She denies having any fever. She denies having any recent falls. She denies having any similar symptoms in the past. She states she has never had a stroke. She does not take blood thinners. The patient awoke this morning in her normal state of health. She was eating breakfast with her significant other when she noticed the left- sided weakness. The patient was brought back directly to room 1 and was made a stroke alert as soon as I evaluated her. ROS: See above HPI for pertinent positives & negatives. A total of 10 systems reviewed and were otherwise negative. PAST MEDICAL HISTORY: See Below PAST SURGICAL HISTORY: See Below FAMILY HISTORY: See Below SOCIAL HISTORY: See Below HOME MEDICATIONS: See Below ALLERGIES: See Below VITALS: See Below PHYSICAL EXAMINATION: GENERAL: Patient is awake alert in no acute distress patient is resting comfortably and showing no signs of anxiety EYES: The conjunctivae are clear. The pupils are round and reactive. EARS, NOSE, MOUTH AND THROAT: The nose is without any evidence of any deformity. Mucous membranes are moist. Tongue is midline. NECK: The neck is nontender and supple. RESPIRATORY: Normal respiratory effort is noted there is no evidence of wheezing rhonchi or rales CARDIOVASCULAR: Regular rate and rhythm noted there no murmurs rubs or gallops normal S1 normal S2. GASTROINTESTINAL: The abdomen is soft. Abdomen is nontender. MUSCULOSKELETAL/EXTREMITIES: There is no evidence of gross deformity full range of motion is noted in the hips and shoulders. SKIN: There is no obvious evidence of any rash. There are no petechiae, pallor or cyanosis noted. NEUROLOGIC: Patient is awake alert and oriented x3. 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 There is no significant facial droop. Speech was pressured but understandable. Patient is able to hold each leg off the bed for greater than 5 seconds. MEDICAL DECISION MAKING: The patient is a 49-year-old female who presented to the emergency department through triage for an evaluation of weakness. The patient appeared to have strokelike symptoms. She was made a stroke alert upon arrival to the room however she was outside of the 3-hour window. Given her age and comorbidities we felt she could be a candidate for extended TPA window however the patient's symptoms started to improve and after discussion with the patient she did not wish to receive TPA. We did discuss his case with the telestroke neurologist at [facility]. She also agrees that the patient may not be a candidate for TPA given her improving symptoms as well as the time of presentation. The patient was treated with aspirin. I discussed the patient's laboratory and radiographic studies with her. She still has some persistence of some symptoms although her NIH is improving. For this reason I discussed [facility] They have agreed to evaluate the patient in the emergency department for further management and disposition. Triage Nursing notes reviewed. Prior medical records reviewed Vital Signs: reviewed and remarkable for bradycardia. Differential diagnosis: Infection, dehydration, metabolic abnormality, hypo/hyperglycemia, electrolyte disturbance, anemia, hypoxia, cardiac sources, intracerebral event, toxicologic, neurologic, as well as other pathologies. ER treatment provided: See below Diagnostics interpreted by me: ECG: EKG was obtained in the emergency department. My interpretation is normal sinus rhythm at 81 bpm. There is no ectopy. There is no acute ST segment abnormalities noted. This was compared to a tracing from January 092019. No significant changes were noted. Cardiac Monitoring: An order was placed for continuous cardiac monitoring. The monitor shows a rate of 85 bpm with sinus rhythm. Laboratory studies: As stated above and show below. Imaging studies: See below Consultation(s): 1350: I discussed this case with Dr. Ramírez who is on-call for telestroke neurology with [facility]. 1430: I discussed this case with Madeline Gonzalez who is [facility]. ED COURSE: Procedures: none PDMP:reviewed and no issues Critical Care: I have personally spent greater than 45 minutes of critical care time in the direct management of this patient. This includes bedside care, interpretation of diagnostic studies, and testing, discussion with consultants, patient, and family members, and other required patient management activities. This 45 minutes is in excess of all separately billable procedures. Past Med/Surg History Medical History Abnormal MRI, spine "[facility] 08/11/15 - indeterminate lesions T 12 and L1" Depression Diverticulosis Gastritis "per EGD 2013" GERD (gastroesophageal reflux disease) HTN (hypertension) Migraine headache Psoriasiform dermatitis Steatohepatitis Surgical History History of hysterectomy History of incisional hernia repair Hx of cholecystectomy Status post tonsillectomy Status post tubal ligation Family History Mother Stroke Father Pancreatic cancer Social History Smoking Status: Former smoker Tobacco Type: Cigarettes Hx Alcohol Use: No Hx Substance Use: No Preferred Language: Mosotho Communication Ability: Effective Automobile Bumper Straightener Required: No Beliefs That Will Affect Care: None marital status: Current Living Situation: Spouse current occupational status: employed Other Information That Helps Us Care for You: No Feels Safe at Home: Yes Safety Concerns: Feels Safe At This Time Assistive Devices: Denture - Upper Allergies Allergies Allergy/AdvReac Type Severity Reaction Status Date / Time hydromorphone AdvReac Mild LIGHTHEADED Verified 02/28/20 13:48 AND VOMITING diphenhydramine AdvReac Vomiting Verified 02/28/20 13:48 [From Benadryl] Home Meds Home Medications Medication Instructions Recorded Confirmed omeprazole 40 mg PO QAM 07/15/19 02/28/20 famotidine [Pepcid] 20 mg PO BID 08/26/19 02/28/20 lisinopril 10 mg PO QAM 09/02/19 02/28/20 albuterol sulfate 2 puff INHALATION Q4H PRN 02/28/20 02/28/20 atenolol 25 mg PO DAILY 02/28/20 02/28/20 ondansetron 4 mg TRANSLINGUAL Q8H PRN 02/28/20 02/28/20 Previous Rx's Medication Instructions Recorded sertraline [Zoloft] 50 mg PO DAILY #14 tab 12/01/19 Results & Data (ED) Vital Signs Vital Signs - 24 hr 02/28/20 12:57 02/28/20 13:11 02/28/20 13:24 Temperature 36.8 C Temperature Source Oral Pulse Rate 66 81 Pulse Rate from SpO2 Sensor Pulse Rhythm Regular Pulse Strength Normal Respiratory Rate 20 13 Respiratory Effort / Characteristics Non-Labored Spontaneous Respiratory Depth Normal Respiratory Pattern Regular Blood Pressure 193/96 H 169/90 H Blood Pressure Mean 128 108 Blood Pressure Position Sitting Pulse Oximetry 96 Oxygen Delivery Method Room Air Sepsis Recent Fever Within 48 Hours No Sepsis New/Unexplained Change in Mental Status No Sepsis Action Taken by Nursing No Action Required 02/28/20 13:30 02/28/20 13:37 02/28/20 13:38 Temperature Temperature Source Pulse Rate 59 L 57 L 58 L Pulse Rate from SpO2 Sensor 60 57 L 58 L Pulse Rhythm Pulse Strength Respiratory Rate 20 17 18 Respiratory Effort / Characteristics Respiratory Depth Respiratory Pattern Blood Pressure 160/78 H Blood Pressure Mean 116 Blood Pressure Position Pulse Oximetry 97 97 96 Oxygen Delivery Method Room Air Room Air Room Air Sepsis Recent Fever Within 48 Hours Sepsis New/Unexplained Change in Mental Status Sepsis Action Taken by Nursing 02/28/20 13:45 02/28/20 13:47 02/28/20 14:00 Temperature Temperature Source Pulse Rate 59 L 58 L 74 Pulse Rate from SpO2 Sensor 58 L Pulse Rhythm Pulse Strength Respiratory Rate 19 17 22 Respiratory Effort / Characteristics Respiratory Depth Respiratory Pattern Blood Pressure 137/79 Blood Pressure Mean 104 Blood Pressure Position Pulse Oximetry 96 Oxygen Delivery Method Room Air Sepsis Recent Fever Within 48 Hours Sepsis New/Unexplained Change in Mental Status Sepsis Action Taken by Nursing 02/28/20 14:01 02/28/20 14:15 02/28/20 14:16 Temperature Temperature Source Pulse Rate 58 L 59 L 64 Pulse Rate from SpO2 Sensor 58 L 65 Pulse Rhythm Pulse Strength Respiratory Rate 19 15 17 Respiratory Effort / Characteristics Respiratory Depth Respiratory Pattern Blood Pressure 162/109 H 159/87 H Blood Pressure Mean 140 108 Blood Pressure Position Pulse Oximetry 98 97 98 Oxygen Delivery Method Room Air Room Air Room Air Sepsis Recent Fever Within 48 Hours Sepsis New/Unexplained Change in Mental Status Sepsis Action Taken by Nursing 02/28/20 14:30 02/28/20 14:31 11/23/20 14:47 Temperature Temperature Source Pulse Rate 53 L 54 L 55 L Pulse Rate from SpO2 Sensor 53 L 54 L 55 L Pulse Rhythm Pulse Strength Respiratory Rate 17 16 17 Respiratory Effort / Characteristics Respiratory Depth Respiratory Pattern Blood Pressure 152/78 H 139/65 Blood Pressure Mean 108 98 Blood Pressure Position Pulse Oximetry 97 96 96 Oxygen Delivery Method Room Air Room Air Sepsis Recent Fever Within 48 Hours Sepsis New/Unexplained Change in Mental Status Sepsis Action Taken by Nursing 02/28/20 14:53 02/28/20 15:00 Temperature Temperature Source Pulse Rate 54 L 57 L Pulse Rate from SpO2 Sensor 56 L 58 L Pulse Rhythm Pulse Strength Respiratory Rate 19 18 Respiratory Effort / Characteristics Respiratory Depth Respiratory Pattern Blood Pressure 128/68 151/65 H Blood Pressure Mean 92 88 Blood Pressure Position Pulse Oximetry 97 97 Oxygen Delivery Method Sepsis Recent Fever Within 48 Hours Sepsis New/Unexplained Change in Mental Status Sepsis Action Taken by Assisted Medications Current Medication List: was personally reviewed by me Laboratory Data Attestation: I reviewed the patient's lab results. Result diagrams: 02/28/20 13:10 02/28/20 13:10 Lab Results 02/28/20 02/28/20 02/28/20 Range/Units 13:10 13:10 13:10 WBC 6.38 (4.8-10.8) K/uL RBC 5.21 (4.2-5.4) M/uL Hgb 15.0 (12.0-16.0) g/dL Hct 45.8 (37-47) % MCV 87.9 (80-100) fL MCH 28.8 (25-34) pg MCHC 32.8 (32-36) g/dL RDW Std Deviation 42.6 (36.4-46.3) fL RDW Coeff of Delia 13.2 (11.5-14.5) % Plt Count 229 (130-400) K/uL MPV 10.5 H (7.4-10.4) fL Immature Gran % (Auto) 0.3 % Neut % (Auto) 71.0 % Lymph % (Auto) 24.1 % Ritchie % (Auto) 3.8 % Eos % (Auto) 0.5 % Baso % (Auto) 0.3 % Neut # (Auto) 4.53 (1.4-6.5) K/uL Lymph # (Auto) 1.54 (1.2-3.4) K/uL Ritchie # (Auto) 0.24 (0.11-0.59) K/uL Eos # (Auto) 0.03 (0-0.5) K/uL Baso # (Auto) 0.02 (0-0.2) K/uL Immature Gran # (Auto) 0.02 (0.00-0.02) K/uL PT 10.3 (9.0-12.0) Seconds INR 1.0 (0.9-1.1) APTT 26.7 (21.0-31.0) Seconds PTT Ratio 1.0 Sodium 141 (136-145) mmol/L Potassium 4.0 (3.5-5.1) mmol/L Chloride 108 H (98-107) mmol/L Carbon Dioxide 28 (21-32) mmol/L Anion Gap 5.0 (3-11) BUN 17 (7-18) mg/dl Creatinine 1.03 (0.6-1.2) mg/dl Est Cr Clr Drug Dosing 76.1 ml/min Est GFR ( Amer) 73.9 Est GFR (Non-Af Amer) 63.8 BUN/Creatinine Ratio 16.3 (10-20) Glucose 107 H (70-99) mg/dl POC Glucose (70-99) mg/dl Calcium 9.8 (8.5-10.1) mg/dl Magnesium 2.5 H (1.8-2.4) mg/dl Total Bilirubin 0.6 (0.2-1) mg/dl AST 15 (15-37) U/L ALT 21 (12-78) U/L Alkaline Phosphatase 88 (45-117) U/L Troponin I < 0.015 (0-0.045) ng/ml Total Protein 8.6 H (6.4-8.2) gm/dl Albumin 4.2 (3.4-5.0) gm/dl Globulin 4.4 H (2.5-4.0) gm/dl Albumin/Globulin Ratio 0.9 (0.9-2) 02/27/ Range/Units 13:10 WBC (4.8-10.8) K/uL RBC (4.2-5.4) M/uL Hgb (12.0-16.0) g/dL Hct (37-47) % MCV (80-100) fL MCH (25-34) pg MCHC (32-36) g/dL RDW Std Deviation (36.4-46.3) fL RDW Coeff of Delia (11.5-14.5) % Plt Count (130-400) K/uL MPV (7.4-10.4) fL Immature Gran % (Auto) % Neut % (Auto) % Lymph % (Auto) % Ritchie % (Auto) % Eos % (Auto) % Baso % (Auto) % Neut # (Auto) (1.4-6.5) K/uL Lymph # (Auto) (1.2-3.4) K/uL Ritchie # (Auto) (0.11-0.59) K/uL Eos # (Auto) (0-0.5) K/uL Baso # (Auto) (0-0.2) K/uL Immature Gran # (Auto) (0.00-0.02) K/uL PT (9.0-12.0) Seconds INR (0.9-1.1) APTT (21.0-31.0) Seconds PTT Ratio Sodium (136-145) mmol/L Potassium (3.5-5.1) mmol/L Chloride (98-107) mmol/L Carbon Dioxide (21-32) mmol/L Anion Gap (3-11) BUN (7-18) mg/dl Creatinine (0.6-1.2) mg/dl Est Cr Clr Drug Dosing ml/min Est GFR ( Amer) Est GFR (Non-Af Amer) BUN/Creatinine Ratio (10-20) Glucose (70-99) mg/dl POC Glucose 98 (70-99) mg/dl Calcium (8.5-10.1) mg/dl Magnesium (1.8-2.4) mg/dl Total Bilirubin (0.2-1) mg/dl AST (15-37) U/L ALT (12-78) U/L Alkaline Phosphatase (45-117) U/L Troponin I (0-0.045) ng/ml Total Protein (6.4-8.2) gm/dl Albumin (3.4-5.0) gm/dl Globulin (2.5-4.0) gm/dl Albumin/Globulin Ratio (0.9-2) Administered Medications Discontinued Medications Aspirin (Aspirin Chew 324 Mg) 324 mg PO NOW STA Stop: 02/28/20 14:18 Last Admin: 02/28/20 14:35 Dose: 324 mg Documented by: [id number] Sodium Chloride (Nss 1000ml) 1,000 mls @ 50 mls/hr IV .Q20H ANJALI Stop: 03/29/20 13:14 Last Infusion: 02/28/20 17:36 Dose: 0 mls/hr Documented by: [id number] Admin: 02/28/20 13:30 Dose: 50 mls/hr Documented by: [id number] Ioversol (Optiray 320 125ml) 120 ml IV ONCE ONE Stop: 02/28/20 13:15 Last Admin: 02/28/20 13:14 Dose: 120 ml Documented by: [id number] Imaging Data Radiologist's Impression: Patient: MASON MEHTAdmit Date: 02/28/20#: [id number]: [address] [facility] ID:[id number]: Date: 1970[facility] Zip: [place], [place] [address]Jia: 49Location: EDSex: FRoom/Bed:Att Phy:Diagnosis: L SIDED NUMBNESS,HEADACHEPri Phy: Lakia Alvarez, DOService Date: 02/28/20Fam Phy:Interpreting Phy: Jovan DoverAdmit Phy: Ordering Phy: Jorge Crenshaw DO cc: ~ CT angio neck with con, CT angio head w con CLINICAL HISTORY: 49 years-old Female with Stroke evaluation. Acute strokelike symptoms COMPARISON STUDY: Head CT of same day TECHNIQUE: Following the IV administration of 120 of Optiray 320, CT angiogram of the head and neck was performed from the aortic arch to the skull apex. Images are reviewed in the axial, sagittal, and coronal planes. 3-D MIPS images are created and assessed. IV contrast was administered without complication. All measurements were calculated based on NASCET criteria. A dose lowering technique was utilized adhering to the principles of ALARA. CT DOSE: 1159.33 mGy.cm FINDINGS: The opacified pulmonary arterial tree is unremarkable. Three-vessel morphology of the thoracic aortic arch. Patency of the innominate and imaged subclavian arteries. The bilateral common and internal carotid arteries are widely patent. The middle and anterior cerebral arteries are also patent. Dominant left vertebral artery. Bilateral vertebral arteries are patent. Patent basilar and posterior cerebral arteries with note made of origin on the left. No aneurysm, dissection, high-grade stenosis or proximal branch occlusion. Cerebral venous sinuses are patent. There is no abnormal intracranial enhancement. The lung apices are clear without pneumothorax. Multinodular thyroid with nodules on the right measuring up to 1.4 cm. No adenopathy. Patent airway. No acute fracture. Mucoperiosteal thickening of the maxillary sinuses, left greater than right. IMPRESSION: 1. Unremarkable CTA of the head and neck without aneurysm, dissection, high- grade stenosis or proximal branch occlusion. 2. Multinodular thyroid. 3. Mild right and [id number] left maxillary sinus mucoperiosteal thickening. ACT 112: Negative or not required by law. The above report was generated using voice recognition software. It may contain grammatical, syntax or spelling errors. Electronically signed by: Salvador Dover M.D. 02/28/2020 1:38 PM Dictated: 02/28/20 1328Transcribed: 02/28/20 1329 Patient: MASON MEHTA JAdmit Date: 02/28/20#: [id number]: [address] [facility] ID:[id number]: Date: 1970[facility] Zip: [place], [place] [address]Iuq: 49Location: EDSex: FRoom/Bed:Att Phy:Diagnosis: L SIDED NUMBNESS,HEADACHEPri Phy: Lakia Alvarez, DOService Date: 02/28/20Fa Phy:Interpreting Phy: Jovan DoverAdmit Phy: Ordering Phy: Jorge Crenshaw DO cc: ~ CT head/brain wo con CLINICAL HISTORY: 49 years-old Female with Stroke evaluation . Acute strokelike symptoms TECHNIQUE: Multiple axial CT images of the head were obtained without contrast. A dose lowering technique was utilized adhering to the principles of ALARA. COMPARISON: CTA head and neck of same day FINDINGS: No acute intracranial hemorrhage, midline shift, intracranial mass, hydrocephalus, territorial ischemia or abnormal extra-axial collection. The calvarium is intact. Mastoid air cells are clear. There is mild mucoperiosteal thickening of the left maxillary sinus. Remaining paranasal sinuses are clear. The soft tissues and orbits are unremarkable. IMPRESSION: No acute intracranial abnormality. ACT 112: Negative or not required by law. The above report was generated using voice recognition software. It may contain grammatical, syntax or spelling errors. Electronically signed by: Salvador Dover M.D. 02/28/2020 1:31 PM Dictated: 02/28/201327Transcribed: 02/28/201327 Patient: MASON MEHTAdmit Date: 02/28/20#: [id number]: [address] [facility] ID:[id number]: Date: 1970[facility] Zip: [place], [place] [address]Ijm: 49Location: EDSex: FRoom/Bed:Att Phy:Diagnosis: L SIDED NUMBNESS,HEADACHEPri Phy: Lakia Alvarez, DOService Date: 02/28/20Fam Phy:Interpreting Phy: Jovan DoverAdmit Phy: Ordering Phy: Jorge Crenshaw DO cc: ~ XR chest 1V portable HISTORY: 49 years-old Female weak acute weakness with strokelike symptoms COMPARISON: Chest radiograph 09/23/2019 TECHNIQUE: Portable AP view of the chest FINDINGS: Cardiomediastinal and hilar silhouettes are within normal limits. No pneumothorax, pleural effusion, airspace consolidation or overt pulmonary edema. Bones of the chest appear grossly intact. No opaque foreign body. IMPRESSION: No acute process. ACT 112: Negative or not required by law. The above report was generated using voice recognition software. It may contain grammatical, syntax or spelling errors. Electronically signed by: Salvador Dover M.D. 02/28/2020 2:24 PM Dictated: 02/28/201421Transcribed: 02/28/20 142 Blood Pressure Blood Pressure Findings: Normal blood pressure Discharge Plan Visit Data Chief Complaint: Stroke/CVA Symptoms Stated Complaint: L SIDED NUMBNESS,HEADACHE ED Provider: Jorge Crenshaw Discharge Problem: Stroke-like symptoms, Acute left-sided weakness Patient Disposition: Admitted As Inpatient Condition: Good Discharge Instructions Interventions: ED Discharge Assessment Last Done: 02/28/20 16:39
[2020-02-28 13:51] LABS: Alanine Aminotransferase 21 U/L (12-78); Albumin Globulin Ratio 0.9 (0.9-2); Alkaline Phosphatase 88 U/L (45-117); Aspartate Aminotransferase 15 U/L (15-37); Bilirubin,Total 0.6 mg/dl (0.2-1); Globulin 4.4 gm/dl (2.5-4.0); Total Protein 8.6 gm/dl (6.4-8.2); Troponin I < 0.015 ng/ml (0-0.045)
[2020-02-28] MEDS ORDERED: ASPIRIN CHEW 324 MG PO STA (14:17)
--- NOTE | 2020-02-28 14:25 | XRay Report ---
XR chest 1V portable HISTORY: 49 years-old Female weak acute weakness with strokelike symptoms COMPARISON: Chest radiograph 09/23/2019 TECHNIQUE: Portable AP view of the chest FINDINGS: Cardiomediastinal and hilar silhouettes are within normal limits. No pneumothorax, pleural effusion, airspace consolidation or overt pulmonary edema. Bones of the chest appear grossly intact. No opaque foreign body. IMPRESSION: No acute process. ACT 112: Negative or not required by law. The above report was generated using voice recognition software. It may contain grammatical, syntax o r spelling errors. Electronically signed by: Salvador Dover M.D. 02/28/2020 2:24 PM
--- NOTE | 2020-02-28 15:42 | History & Physical Report ---
Date of Service February 28, 2020 Assessment & Plan (1) Stroke-like symptoms: -Admit to telemetry -Patient presenting from home with reports of left-sided weakness and numbness -In the ED, stroke alert was called however patient symptoms were improving and she was borderline outside of the window for TPA, therefore patient was not considered to be a TPA candidate -Head and neck CTA unremarkable -? Complex migraine -Patient is hemodynamically stable, allow for permissive hypertension -Brain MRI, resting echo -If brain MRI positive for CVA, likely will need hypercoagulable work-up -S/p full dose aspirin in the ED, continue with aspirin 81 mg daily -Lipid panel with morning labs -Neuro consult, input appreciated (2) HTN (hypertension): -Hold home losartan and atenolol to allow for permissive hypertension (3) DVT prophylaxis: -SCDs History of Present Illness Chief Complaint: Left-sided weakness and numbness Primary Care Provider: Lakia Alvarez, 49-year-old female with PMH HTN, depression, anxiety, and other problems listed below who presents to the ED for evaluation of left-sided weakness and numbness. Patient reports she woke up this morning feeling in her usual state of health. She reports that around 930, she noted some visual disturbances in her left eye and developed a sharp pain above her left eye. She then noted left arm and left leg numbness and weakness. Patient reports that she was able to walk however she was leaning to the right whenever she was walking. She reports she had some mild dizziness but denies any lightheadedness or syncopal event. Patient denies any difficulty speaking, understanding, swallowing. Reports she otherwise has been feeling well recently. Denies any other recent illnesses, fevers, chills. No chest pain, shortness of breath, palpitations. She denies abdominal pain, nausea, vomiting, diarrhea. No urinary symptoms. In the ED, stroke alert was called however patient was improving and close to being outside of the window for TPA. She was therefore felt to not be a candidate for TPA. Head and neck CTAs are negative for acute findings. Patient was given a full dose aspirin. She is hemodynamically stable. Allergies Allergy/AdvReac Type Severity Reaction Status Date / Time hydromorphone AdvReac Mild LIGHTHEADED Verified 02/28/20 13:48 AND VOMITING diphenhydramine AdvReac Vomiting Verified 02/28/20 13:48 [From Benadryl] Home Medications Medication Instructions Recorded Confirmed Type omeprazole 40 mg PO QAM 07/15/19 02/28/20 History famotidine [Pepcid] 20 mg PO BID 08/26/19 02/28/20 History lisinopril 10 mg PO QAM 09/02/19 02/28/20 History sertraline [Zoloft] 50 mg PO DAILY #14 tab 12/01/19 02/28/20 Rx albuterol sulfate 2 puff INHALATION Q4H PRN 02/28/20 02/28/20 History atenolol 25 mg PO DAILY 02/28/20 02/28/20 History ondansetron 4 mg TRANSLINGUAL Q8H PRN 02/28/20 02/28/20 History Past Med/Surg History Medical History Abnormal MRI, spine "[facility] 08/11/15 - indeterminate lesions T 12 and L1" Depression Diverticulosis Gastritis "per EGD 2013" GERD (gastroesophageal reflux disease) HTN (hypertension) Migraine headache Psoriasiform dermatitis Steatohepatitis Surgical History History of hysterectomy History of incisional hernia repair Hx of cholecystectomy Status post tonsillectomy Status post tubal ligation Family History Mother Stroke Father Pancreatic cancer Social History Smoking Status: Former smoker Tobacco Type: Cigarettes Hx Alcohol Use: No Hx Substance Use: No Preferred Language: Belarusian Communication Ability: Effective Adoption Manager Required: No Beliefs That Will Affect Care: None marital status: Current Living Situation: Spouse current occupational status: employed Other Information That Helps Us Care for You: No Feels Safe at Home: Yes Safety Concerns: Feels Safe At This Time Assistive Devices: Denture - Upper Review of Systems Review of Systems: ROS per HPI, all other systems reviewed and negative Physical Exam Constitutional: WD/WN, vitals as above Eyes: PERRL, conjunctivae normal, anicteric sclerae ENMT: external ear and nose normal, oropharynx normal Respiratory: normal respiratory effort, lungs clear to auscultation Cardiovascular: Rate/Rhythm: regular rate and regular rhythm Vessels: normal peripheral pulses Extremities: no edema Gastrointestinal (Abdomen): normal bowel sounds, soft, nontender, no hepatosplenomegaly Musculoskeletal: Extremities: + abnormal strength, no cyanosis and no clubbing Skin: no rashes, warm and dry Neurologic: PERRL, EOMI, accommodation nl, no face palsy, no dysarthria Motor/Sensory: + pronator drift (left) Coordination: + abnormal tmfiac-xk-ozoy test (Mild difficulty with LUE) and + abnormal pgqw-ie-kucd test (Mild difficulty with L LE) Identification And Records Commander strength 5/5 on right, 4/5 on left. Arm strength strong and equal bilaterally. LLE strength 3-4/5, RLE 5/5 Psychiatric: A+Ox3, euthymic affect Results & Data Results & Data ([facility]) Vital Signs (Past 12 Hours) Vital Signs Temp Pulse Resp BP Pulse Ox 02/28/20 14:31 54 L 16 152/78 H 96 02/28/20 14:30 53 L 17 97 02/28/20 14:16 64 17 159/87 H 98 02/28/20 14:15 59 L 15 97 02/28/20 14:01 58 L 19 162/109 H 98 02/28/20 14:00 74 22 02/28/20 13:47 58 L 17 137/79 96 02/28/20 13:45 59 L 19 02/28/20 13:38 58 L 18 96 02/28/20 13:37 57 L 17 160/78 H 97 02/28/20 13:30 59 L 20 97 02/28/20 13:24 81 13 02/28/20 13:11 169/90 H 02/28/20 12:57 36.8 C 66 20 193/96 H 96 Laboratory Results Short CBC 02/28/20 Range/Units 13:10 WBC 6.38 (4.8-10.8) K/uL Hgb 15.0 (12.0-16.0) g/dL Hct 45.8 (37-47) % Plt Count 229 (130-400) K/uL BMP 02/28/20 13:10 Sodium 141 Potassium 4.0 Chloride 108 H Carbon Dioxide 28 BUN 17 Creatinine 1.03 Glucose 107 H Calcium 9.8 Cardiac Enzymes 02/28/20 Range/Units 13:10 Troponin I < 0.015 (0-0.045) ng/ml Liver Function 02/28/20 Range/Units 13:10 Total Bilirubin 0.6 (0.2-1) mg/dl AST 15 (15-37) U/L ALT 21 (12-78) U/L Alkaline Phosphatase 88 (45-117) U/L Albumin 4.2 (3.4-5.0) gm/dl Diagnostic Findings CXR IMPRESSION: No acute process. HEAD CT IMPRESSION: No acute intracranial abnormality. HEAD AND NECK CTA IMPRESSION: 1. Unremarkable CTA of the head and neck without aneurysm, dissection, high- grade stenosis or proximal branch occlusion. 2. Multinodular thyroid. 3. Mild right and wzes-ic-seazhweu left maxillary sinus mucoperiosteal thickening. Code Status & VTE Plan VTE Prophylaxis Plan VTE Prophylaxis will be ordered: Yes Supervising Physician Co-Signing Physician Notes Patient is a 49-year-old female with history of hypertension, depression, anxiety and other medical problems presents with history of left-sided weakness, numbness, left facial numbness and tingling, left eye blurry vision. Symptoms started at about 9:30 AM this morning. Reports his dizziness and balance issues with ambulation. Please review HPI for complete details of presentation. CT head showed no acute intracranial abnormality. CTA head, neck are unremarkable. She admits to recently completing Augmentin for " fluid behind the ear" as outpatient. She denies any tick bite. While in ED, left-sided numbness, tingling, weakness slightly improved. She was noted to be bradycardic while in ED. On exam patient is moderately built and nourished, no apparent distress, normocephalic atraumatic, lungs are clear to auscultation, S1-S2, no murmur, bradycardia, no pedal edema, abdomen soft, nontender, normal bowel sounds, alert, awake, oriented, left upper extremity> left lower extremity weakness noted. Patient is admitted for management of strokelike symptoms. Will obtain MRI, echo, lipid panel. Consider dual antiplatelet therapy if MRI consistent with acute stroke. DD: Acute CVA, complicated migraine. Check Lyme screen, given bradycardia and facial numbness. Also check TSH, vitamin B12 levels. Neurology consulted. Monitor on telemetry for any bradycardia arrhythmias. Hold antihypertensives in setting of acute strokelike symptoms to allow permissive hypertension. Will consider treatment for complicated migraine if MRI negative for acute CVA. I personally reviewed the record. Patient is interviewed and examined at bedside. Patient's care is coordinated with Madeline Gonzalez NP. Please refer to the documentation above for details of patient's presentation and for discussion of other issues.
--- NOTE | 2020-02-28 17:01 | Neurology Consultation ---
Date of Consultation February 28, 2020 Assessment & Plan (1) Stroke-like symptoms: 1. MRI brain with and without - r/o stroke 2. start aspirin 81 mg and plavix 75 mg x 21 days then aspirin alone for life 3. optimize HTN HLD, DM LDL <70- start statin 4. PT/OT speech for discharge needs 5. TTE - pending 6. CTA no acute abnormalities 7. further recommendations once imaging is completed. Present on Admission?: Yes Supervising Physician Co-Signing Physician Notes I have seen and discussed above patient with Dr Karey Gupta, neurology. Pt seen and examined, Hx as above. Exam notable for full adrian, no facial asymm. mild LUE weakness with out pronation and equal NARENDRA. LLE mildly weak, Dec LT LUE and LLE. Imp Complicated migraine vs stroke. await MRI. Agree with dual antiplt tx at present.Echo, monitor. SHANE Gupta MD History of Present Illness Reason for Consultation: stroke like symptoms Requesting Physician: Júnior Baez MD Attending Physician: Júnior Baez MD History of Present Illness Eli is a 49 year old female with PMH HTN, depression, anxiety. She presented to the ED for evaluation of left-sided weakness and numbness. She woke up this morning feeling in her usual state of health. She reports that around 930, she noted some visual disturbances in her left eye (blurring) and developed a sharp pain above her left eye. She then felt her left arm and left leg was numbness and weakness she had difficulty standing. She was leaning to the right whenever she was walking. She reports she had some mild dizziness but denies any lightheadedness or syncopal event. she has not felt ill and has been working with no difficulties. She quit smoking about 6 months ago because she was told smokers have more issues with the Covid 19. She was a 4-5 cigs per day smoker for years. She does drinking caffeine no EtOH use no other drugs. she has no personal history of stroke or heart disease. Her mother had several strokes and "mini" strokes and had a "leaky" heart valve. She felt the symptoms lasted about 2 hours but she still has the numbness in her arm and leg. denies CP, SOB, abdominal pain. palpitations, +blurred vision in left eye, numbness in left arm and leg. Allergies Allergy/AdvReac Type Severity Reaction Status Date / Time hydromorphone AdvReac Mild LIGHTHEADED Verified 02/28/20 13:48 AND VOMITING diphenhydramine AdvReac Vomiting Verified 02/28/20 13:48 [From Benadryl] Home Medications Medication Instructions Recorded Confirmed Type omeprazole 40 mg PO QAM 07/15/19 02/28/20 History famotidine [Pepcid] 20 mg PO BID 08/26/19 02/28/20 History lisinopril 10 mg PO QAM 09/02/19 02/28/20 History sertraline [Zoloft] 50 mg PO DAILY #14 tab 12/01/19 02/28/20 Rx albuterol sulfate 2 puff INHALATION Q4H PRN 02/28/20 02/28/20 History atenolol 25 mg PO DAILY 02/28/20 02/28/20 History ondansetron 4 mg TRANSLINGUAL Q8H PRN 02/28/20 02/28/20 History Patient History Medical History Abnormal MRI, spine "[facility] 08/11/15 - indeterminate lesions T 12 and L1" Depression Diverticulosis Gastritis "per EGD 2013" GERD (gastroesophageal reflux disease) HTN (hypertension) Migraine headache Psoriasiform dermatitis Steatohepatitis Surgical History History of hysterectomy History of incisional hernia repair Hx of cholecystectomy Status post tonsillectomy Status post tubal ligation Family History Mother Stroke Father Pancreatic cancer Social History Smoking Status: Former smoker Tobacco Type: Cigarettes Hx Alcohol Use: No Hx Substance Use: No Preferred Language: Luxembourgish Communication Ability: Effective Clinical Fellow Required: No Beliefs That Will Affect Care: None marital status: Current Living Situation: Spouse current occupational status: employed Other Information That Helps Us Care for You: No Feels Safe at Home: Yes Safety Concerns: Feels Safe At This Time Assistive Devices: Denture - Upper Physical Exam Physical Exam: Physical Exam: Constitutional: appearance over nourished, healthy and normal Ears, Nose, Mouth and Throat: mucous membranes moist, no injection and skin normal, eyes normal Cardiovascular: normal S-1 and S-2 and regular rate and rhythm Respiratory: course breath sounds Musculoskeletal: no peripheral edema and good distal pulses Skin: no stigmata of neurocutaneous disease noted and normal and intact Eyes: extraocular muscles intact (EOMI) and pupils equal, round and reactive to light (PERRL) difficulty with left lateral vision NEUROLOGIC EXAMINATION: Mental status: Alert and interactive Oriented to full date and location Oriented to person Speech fluent with no evidence of aphasia Cranial Nerves eye brow raise symmetric Reflexes: Deep tendon reflexes were symmetrical and graded brisk, down going toes Sensory: decrease sensation to light and cool touch left arm and leg Coordination: finger to nose no bi pass Gait/Stance: Posture normal. sitting up in bed Motor: Negative for pronator drift of out stretched arms with eyes closed. 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, right 4+/5, hip flex plantar flex ext right 5/5, left 4+/5 Results & Data ([facility]) Vital Signs (Past 12 Hours) Vital Signs Temp Pulse Resp BP Pulse Ox 02/28/20 16:15 53 L 18 97 02/28/20 16:01 55 L 23 123/50 L 96 02/28/20 15:31 53 L 19 130/75 95 02/28/20 15:00 57 L 18 151/65 H 97 02/28/20 14:53 54 L 19 128/68 97 02/28/20 14:47 55 L 17 139/65 96 02/28/20 14:31 54 L 16 152/78 H 96 02/28/20 14:30 53 L 17 97 02/28/20 14:16 64 17 159/87 H 98 02/28/20 14:15 59 L 15 97 02/28/20 14:01 58 L 19 162/109 H 98 02/28/20 14:00 74 22 02/28/20 13:47 58 L 17 137/79 96 02/28/20 13:45 59 L 19 02/28/20 13:38 58 L 18 96 02/28/20 13:37 57 L 17 160/78 H 97 02/28/20 13:30 59 L 20 97 02/28/20 13:24 81 13 02/28/20 13:11 169/90 H 02/28/20 12:57 36.8 C 66 20 193/96 H 96 Laboratory Results Abnormal lab results 02/28/20 02/28/20 Range/Units 13:10 13:10 MPV 10.5 H (7.4-10.4) fL Chloride 108 H (98-107) mmol/L Glucose 107 H (70-99) mg/dl Magnesium 2.5 H (1.8-2.4) mg/dl Total Protein 8.6 H (6.4-8.2) gm/dl Globulin 4.4 H (2.5-4.0) gm/dl Diagnostic Findings CTA head and neck-Unremarkable CTA of the head and neck without aneurysm, dissection, high-grade stenosis or proximal branch occlusion. Multinodular thyroid. Mild right and idmx-si-rgagmkdh left maxillary sinus mucoperiosteal thickening.
[2020-02-28] MEDS ORDERED: PHARMACIST DISCHARGE MED REC CONSULT PRN (17:08)
[2020-02-28] MEDS ORDERED: ACETAMINOPHEN 325 MG TAB PO PRN (17:08)
[2020-02-28] MEDS ORDERED: LORazepam 1 MG/2 ML VIAL IV SCH (17:30)
[2020-02-28] MEDS: FAMOTIDINE 20 MG TAB PO SCH (20:46)
[2020-02-28] MEDS ORDERED: Nursing to Pharmacy Communication SCH (21:30)
[2020-02-28] MEDS ORDERED: SERTRALINE HCL 50 MG TABLET PO SCH (22:00)
[2020-02-28 23:17] LABS: Lyme Ab IgG w/WB Rflx Negative (Negative)
[2020-02-28 23:26] LABS: Lyme Ab IgM w/WB Rflx Equivocal (Negative)
[2020-02-28] MEDS ORDERED: LORazepam 0.5 MG/1 ML VIAL IV STA (23:26)
[2020-02-29] MEDS ORDERED: GADOBUTROL 65ML VIAL IV ONE (00:19)
--- NOTE | 2020-02-29 06:18 | Electrocardiogram Report ---
Test Reason : Blood Pressure : / mmHG Vent. Rate : 061 BPM Atrial Rate : 061 BPM P-R Int : 166 ms QRS Dur : 076 ms QT Int : 432 ms P-R-T Axes : 025 005 050 degrees QTc Int : 434 ms Normal sinus rhythm When compared with ECG of 10-JAN-2020 19:13, No significant change was found Confirmed by Titus Chapa ([id number]) on 02/29/2020 6:17:31 AM Referred By: REFERRED SELF Confirmed By:Titus Chapa
[2020-02-29 07:06] LABS: Basophils # (auto) 0.01 K/uL (0-0.2); Basophils % (auto) 0.2 %; Eosinophils # (auto) 0.03 K/uL (0-0.5); Eosinophils % (auto) 0.6 %; Hematocrit (blood only) 43.2 % (37-47); Hemoglobin 13.7 g/dL (12.0-16.0); Immature Granulocytes # (auto) 0.01 K/uL (0.00-0.02); Immature Granulocytes % (auto) 0.2 %; Lymphocytes # (auto) 1.24 K/uL (1.2-3.4); Lymphocytes % (auto) 26.7 %; Mean Corpuscular Hemoglobin 28.1 pg (25-34); Mean Corpuscular Hgb Conc 31.7 g/dL (32-36); Mean Corpuscular Volume 88.7 fL (80-100); Mean Platelet Volume 10.6 fL (7.4-10.4); Monocytes # (auto) 0.29 K/uL (0.11-0.59); Monocytes % (auto) 6.2 %; Neutrophils # (auto) 3.07 K/uL (1.4-6.5); Neutrophils % (auto) 66.1 %; Platelet Count 192 K/uL (130-400); RDW Coefficient of Variation 13.4 % (11.5-14.5); RDW Standard Deviation 43.4 fL (36.4-46.3); Red Blood Count 4.87 M/uL (4.2-5.4); White Blood Count 4.65 K/uL (4.8-10.8)
[2020-02-29 07:13] LABS: Estimated Average Glucose 126 mg/dl
[2020-02-29 07:35] LABS: BUN Creatinine Ratio 14.9 (10-20); Calcium 8.9 mg/dl (8.5-10.1); Creatinine Clr Calc Pharmacy 63.2 ml/min; Est GFR (African American) 59.1; Magnesium 2.6 mg/dl (1.8-2.4); Potassium 3.8 mmol/L (3.5-5.1)
[2020-02-29 07:47] LABS: Thyroid Stimulating Hormone 1.96 uIu/ml (0.300-4.500)
--- NOTE | 2020-02-29 08:06 | Magnetic Resonance Report ---
MR brain wo/w con HISTORY: 49 years-old Female stroke like symptoms acute strokelike symptoms COMPARISON: Head CT with CTA head neck of same day, brain MRI 04/27/2015 TECHNIQUE: Multiplanar multisequence MRI the brain was obtained both with and without the use of 9.6 mL Gadavist FINDINGS: Railroad Hand localizer images demonstrate no gross extracranial abnormality. There is no restricted diffusio n to suggest acute or subacute infarct. The midline structures including the corpus callosum, brainst em, optic chiasm, pituitary and pineal glands appear unremarkable on the sagittal T1 series. The stud y is motion degraded. No cerebellar tonsillar herniation. No pathologic blooming artifact on the T2 star series. No acute intracranial hemorrhage, midline shif t, abnormal extra-axial collection, hydrocephalus or intracranial mass. There are a few punctate foci of T2/FLAIR prolongation noted within the subcortical white matter of the bilateral cerebral hemisph eres, likely of no clinical significance. Mesial temporal lobes are within normal limits. No evidence of mesial temporal sclerosis or acute seizure focus. There is no abnormal intra-axial or extra-axial enhancement. Cerebral venous sinuses and major arterial flow voids at the level the skull base appear patent. Mast oid air cells are clear. Mucoperiosteal thickening of the maxillary sinuses, left greater than right. The orbits, skull and soft tissues are unremarkable. IMPRESSION: 1. Motion degraded exam without acute intracranial abnormality, specifically there is no evidence of acute or subacute infarct. 2. No abnormal enhancement. ACT 112: Negative or not required by law. The above report was generated using voice recognition software. It may contain grammatical, syntax o r spelling errors. Electronically signed by: Salvador Dover M.D. 02/29/2020 8:05 AM
[2020-02-29] MEDS: FAMOTIDINE 20 MG TAB PO SCH (08:21)
[2020-02-29] MEDS ORDERED: ASPIRIN 81 MG ECTAB PO SCH (09:00)
[2020-02-29] MEDS ORDERED: PANTOprazole 40 MG TAB PO SCH (09:00)
[2020-02-29] MEDS ORDERED: SERTRALINE HCL 50 MG TABLET PO SCH (09:00)
[2020-02-29] MEDS ORDERED: SODIUM CHLORIDE 0.9% 1000ML 1,000 ML IV SCH (11:45)
[2020-02-29] MEDS ORDERED: STROKE PATIENT DISCHARGE STA (16:52)
--- NOTE | 2020-02-29 17:08 | Neurology Progress Note ---
Date of Service February 29, 2020 Assessment & Plan (1) Stroke-like symptoms: 1. MRI brain with and without - no acute abnormalities 2. aspirin 81 mg only 3. optimize HTN HLD, DM LDL <70- start statin 4. PT/OT speech for discharge needs 5. TTE - no ASD 6. CTA no acute abnormalities 7. start riboflavin 400 mg and mg ++ox 400 mg daily 8. follow up with neurology Karey MARCOS 4-6 weeks. Admission and Anticipated Discharge Date Admission Date: February 28, 2020 Supervising Physician Co-Signing Physician Notes I have seen and discussed above patient with Dr Karey Gupta, neurology Subjective Ada is a 49 year old female with PMH HTN, depression, anxiety. She presented to the ED for evaluation of left-sided weakness and numbness. She woke up this morning feeling in her usual state of health. She reports that around 930, she noted some visual disturbances in her left eye (blurring) and developed a sharp pain above her left eye. She then felt her left arm and left leg was numbness and weakness she had difficulty standing. She was leaning to the right whenever she was walking. She reports she had some mild dizziness but denies any lightheadedness or syncopal event. she has not felt ill and has been working with no difficulties. She quit smoking about 6 months ago because she was told smokers have more issues with the Covid 19. She was a 4-5 cigs per day smoker for years. She does drinking caffeine no EtOH use no other drugs. she has no personal history of stroke or heart disease. Her mother had several strokes and "mini" strokes and had a "leaky" heart valve. She felt the symptoms lasted about 2 hours but she still has the numbness in her arm and leg. she has a history of migraines which have been quite for years and had aura prior to migraine but no numbness in face/arm leg. She has been up and walking with PT today. She feels she is still having wea kness in her left leg. denies CP, SOB, abdominal pain. palpitations, +left leg weakness Review of Systems Review of Systems: All systems reviewed & are unremarkable except as noted in HPI & below Physical Exam Physical Exam: Physical Exam: Constitutional: appearance over nourished, healthy and normal Ears, Nose, Mouth and Throat: mucous membranes moist, no injection and skin normal, eyes normal Cardiovascular: normal S-1 and S-2 and regular rate and rhythm Respiratory: course breath sounds Musculoskeletal: no peripheral edema and good distal pulses Skin: no stigmata of neurocutaneous disease noted and normal and intact Eyes: extraocular muscles intact (EOMI) and pupils equal, round and reactive to light (PERRL) NEUROLOGIC EXAMINATION: Mental status: Alert and interactive Oriented to full date and location Oriented to person Speech fluent with no evidence of aphasia Cranial Nerves eye brow raise symmetric Reflexes: Deep tendon reflexes were symmetrical and graded brisk, down going toes Sensory: decrease sensation to light and cool touch left arm and leg Coordination: finger to nose no bi pass Gait/Stance: Posture normal. sitting up in bed Motor: Negative for pronator drift of out stretched arms with eyes closed. 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5-5.6) % Magnesium 2.6 H (1.8-2.4) mg/dl Cholesterol 206 H (0-200) mg/dl Lyme Disease IgM Ab Equivocal A (Negative) 02/29/20 Range/Units 06:23 WBC (4.8-10.8) K/uL MCHC (32-36) g/dL MPV (7.4-10.4) fL Chloride (98-107) mmol/L BUN (7-18) mg/dl Creatinine (0.6-1.2) mg/dl Glucose (70-99) mg/dl Hemoglobin A1c 6.0 H (4.5-5.6) % Magnesium (1.8-2.4) mg/dl Cholesterol (0-200) mg/dl Lyme Disease IgM Ab (Negative) Diagnostic Findings TTE- 60-65% EF no ASD MRI brain- Motion degraded exam without acute intracranial abnormality, specifically there is no evidence of acute or subacute infarct. No abnormal enhancement. CTA head and neck-Unremarkable CTA of the head and neck without aneurysm, dissection, high-grade stenosis or proximal branch occlusion. Multinodular thyroid. Mild right and [id number]-[id number] left maxillary sinus mucoperiosteal thickening.
--- NOTE | 2020-03-03 19:05 | Hospitalist Progress Note ---
Date of Service delayed entry date of service 02/29/20 March 03, 2020 Assessment & Plan (1) Acute left-sided weakness: Stroke-like symptoms, likely secondary to Complex Migraine Acute CVA ruled out per admitting service notes: -Patient presenting from home with reports of left-sided weakness and numbness -In the ED, stroke alert was called however patient symptoms were improving and she was borderline outside of the window for TPA, therefore patient was not considered to be a TPA candidate Work up: -Head and neck CTA: unremarkable -Brain MRI: 1. Motion degraded exam without acute intracranial abnormality, specifically there is no evidence of acute or subacute infarct. 2. No abnormal enhancement. - Echo: EF 60-65% Grade 1 Diastolic Dysfunction, negative bubble study in 2015 - symptoms gradually resolved during admission - Neurologist consulted Acute CVA ruled out Symptoms likely secondary to complex migraine, recommendations: ASA 81mg po daily, Riboflavin and Mg daily ff up with PCP in 4-6 weeks Grade 1 Diastolic Dysfunction - demonstrated on echo - already on Atenolol - further evaluation and follow up as outpatient Multinodular Thyroid - seen on CT angio of head and neck - Multinodular thyroid with nodules on the right measuring up to 1.4 cm - TSH 1.9, T4 1.04, T3 2.6 - further evaluation, management and follow up as outpatient HTN (hypertension) - continue usual losartan and atenolol Pre DM - A1c 6.0 - further evaluation, management and follow up as outpatient Dyslipidemia - LDL 140 - Total Cholesterol 206 - further evaluation, management and follow up as outpatient Disposition ff up with PCP in 1 week Admission and Anticipated Discharge Date Admission Date: February 28, 2020 Subjective ff up for left sided weakness evaluated in AM seen resting in bedside chair, not in distress, comfortable states she feels better overall left sided headache, eye pain resolved LUE weakness resolved LLE weakness much improved sensation back to 100% denies headache, dizziness, chest pain, palpitations, dizziness no other symptoms reevaluated in the afternoon states she feels better overall no other symptoms states she is ready and would like to be discharged Review of Systems Review of Systems: All systems reviewed & are unremarkable except as noted in Subjective Physical Exam Physical Exam: General- oriented x 3, not in distress, speaks in sentences with no effort or accessory muscle use Eyes- anicteric Neck- no JVD Lungs- clear breath sounds bilaterally, no rales/wheezes Heart- normal rate, regular rhythm; no murmurs Abdomen- normal bowel sounds, nondistended, soft, nontender Extremities- no pretibial edema, no calf tenderness Neuro- alert, oriented x 3; no gross focal neurologic deficits except LLE 4/5 motor strength Skin- warm & dry Results & Data Results & Data ([facility]) Vital Signs (Past 12 Hours) all noted and reviewed
--- NOTE | 2020-03-03 22:43 | Discharge Summary ---
Date of Service March 03, 2020 Admission HPI Per Admitting Provider 49-year-old female with PMH HTN, depression, anxiety, and other problems listed below who presents to the ED for evaluation of left-sided weakness and numbness. Patient reports she woke up this morning feeling in her usual state of health. She reports that around 930, she noted some visual disturbances in her left eye and developed a sharp pain above her left eye. She then noted left arm and left leg numbness and weakness. Patient reports that she was able to walk however she was leaning to the right whenever she was walking. She reports she had some mild dizziness but denies any lightheadedness or syncopal event. Patient denies any difficulty speaking, understanding, swallowing. Reports she otherwise has been feeling well recently. Denies any other recent illnesses, fevers, chills. No chest pain, shortness of breath, palpitations. She denies abdominal pain, nausea, vomiting, diarrhea. No urinary symptoms. In the ED, stroke alert was called however patient was improving and close to being outside of the window for TPA. She was therefore felt to not be a candidate for TPA. Head and neck CTAs are negative for acute findings. Patient was given a full dose aspirin. She is hemodynamically stable. Admission Exam Per Admitting Provider Constitutional: WD/WN, vitals as above Eyes: PERRL, conjunctivae normal, anicteric sclerae ENMT: external ear and nose normal, oropharynx normal Respiratory: normal respiratory effort, lungs clear to auscultation Cardiovascular: Rate/Rhythm: regular rate and regular rhythm Vessels: normal peripheral pulses Extremities: no edema Gastrointestinal (Abdomen): normal bowel sounds, soft, nontender, no hepatosplenomegaly Musculoskeletal: Extremities: + abnormal strength, no cyanosis and no clubbing Skin: no rashes, warm and dry Neurologic: PERRL, EOMI, accommodation nl, no face palsy, no dysarthria Motor/Sensory: + pronator drift (left) Coordination: + abnormal wgotjy-cr-wslp test (Mild difficulty with LUE) and + abnormal jehr-wz-pano test (Mild difficulty with L LE) Vegetable Thinner strength 5/5 on right, 4/5 on left. Arm strength strong and equal bilaterally. LLE strength 3-4/5, RLE 5/5 Psychiatric: A+Ox3, euthymic affect Principal Diagnosis Stroke Like Symptoms, likely secondary to Complicated Migraine Discharge Exam General- oriented x 3, not in distress, speaks in sentences with no effort or accessory muscle use Eyes- anicteric Neck- no JVD Lungs- clear breath sounds bilaterally, no rales/wheezes Heart- normal rate, regular rhythm; no murmurs Abdomen- normal bowel sounds, nondistended, soft, nontender Extremities- no pretibial edema, no calf tenderness Neuro- alert, oriented x 3; no gross focal neurologic deficits except LLE 4/5 motor strength Skin- warm & dry Discharge Data Allergies Allergy/AdvReac Type Severity Reaction Status Date / Time hydromorphone AdvReac Mild LIGHTHEADED Verified 02/28/20 13:48 AND VOMITING diphenhydramine AdvReac Vomiting Verified 02/28/20 13:48 [From Benadryl] Consultations 02/28/20 14:27 ED Decision to Admit Stat 02/28/20 17:08 Consult Case Management - Discharge Planning Routine Consult Neurology Routine Ordered Studies 02/28/20 13:07 CT angio head w con Stat No acute intracranial hemorrhage, midline shift, intracranial mass, hydrocephalus, territorial ischemia or abnormal extra-axial collection. The calvarium is intact. Mastoid air cells are clear. There is mild mucoperiosteal thickening of the left maxillary sinus. Remaining paranasal sinuses are clear. The soft tissues and orbits are unremarkable. IMPRESSION: No acute intracranial abnormality. CT angio neck with con Stat CT head/brain wo con Stat FINDINGS: The opacified pulmonary arterial tree is unremarkable. Three-vessel morphology of the thoracic aortic arch. Patency of the innominate and imaged subclavian arteries. The bilateral common and internal carotid arteries are widely patent. The middle and anterior cerebral arteries are also patent. Dominant left vertebral artery. Bilateral vertebral arteries are patent. Patent basilar and posterior cerebral arteries with note made of origin on the left. No aneurysm, dissection, high-grade stenosis or proximal branch occlusion. Cerebral venous sinuses are patent. There is no abnormal intracranial enhancement. The lung apices are clear without pneumothorax. Multinodular thyroid with nodules on the right measuring up to 1.4 cm. No adenopathy. Patent airway. No acute fracture. Mucoperiosteal thickening of the maxillary sinuses, left greater than right. IMPRESSION: 1. Unremarkable CTA of the head and neck without aneurysm, dissection, high- grade stenosis or proximal branch occlusion. 2. Multinodular thyroid. 3. Mild right and [id number] left maxillary sinus mucoperiosteal thickening. 02/28/20 17:08 MR brain wo/w con Routine Lithographic Photographer localizer images demonstrate no gross extracranial abnormality. There is no restricted diffusion to suggest acute or subacute infarct. The midline structures including the corpus callosum, brainstem, optic chiasm, pituitary and pineal glands appear unremarkable on the sagittal T1 series. The study is motion degraded. No cerebellar tonsillar herniation. No pathologic blooming artifact on the T2 star series. No acute intracranial hemorrhage, midline shift, abnormal extra-axial collection, hydrocephalus or intracranial mass. There are a few punctate foci of T2/FLAIR prolongation noted within the subcortical white matter of the bilateral cerebral hemispheres, likely of no clinical significance. Mesial temporal lobes are within normal limits. No evidence of mesial temporal sclerosis or acute seizure focus. There is no abnormal intra-axial or extra-axial enhancement. Cerebral venous sinuses and major arterial flow voids at the level the skull base appear patent. Mastoid air cells are clear. Mucoperiosteal thickening of the maxillary sinuses, left greater than right. The orbits, skull and soft tissues are unremarkable. IMPRESSION: 1. Motion degraded exam without acute intracranial abnormality, specifically there is no evidence of acute or subacute infarct. 2. No abnormal enhancement. Hospital Course (1) Stroke-like symptoms: Acute left-sided weakness: Stroke-like symptoms, likely secondary to Complex Migraine Acute CVA ruled out per admitting service notes: -Patient presenting from home with reports of left-sided weakness and numbness -In the ED, stroke alert was called however patient symptoms were improving and she was borderline outside of the window for TPA, therefore patient was not considered to be a TPA candidate Work up: -Head and neck CTA: unremarkable -Brain MRI: 1. Motion degraded exam without acute intracranial abnormality, specifically there is no evidence of acute or subacute infarct. 2. No abnormal enhancement. - Echo: EF 60-65% Grade 1 Diastolic Dysfunction, negative bubble study in 2014 - symptoms gradually resolved during admission - Neurologist consulted Acute CVA ruled out Symptoms likely secondary to complex migraine, recommendations: ASA 81mg po daily, Riboflavin and Mg daily ff up with PCP in 4-6 weeks Grade 1 Diastolic Dysfunction - demonstrated on echo - already on Atenolol - further evaluation and follow up as outpatient Multinodular Thyroid - seen on CT angio of head and neck - Multinodular thyroid with nodules on the right measuring up to 1.4 cm - TSH 1.9, T4 1.04, T3 2.6 - further evaluation, management and follow up as outpatient HTN (hypertension) - continue usual losartan and atenolol Pre DM - A1c 6.0 - further evaluation, management and follow up as outpatient Dyslipidemia - LDL 140 - Total Cholesterol 206 - further evaluation, management and follow up as outpatient Disposition ff up with PCP in 1 week Total Time Total Time Spent Total Time Spent (In Minutes): > 30 minutes Discharge Plan Discharge Items Patient Disposition: Home - Self-Care Reason For Visit: STROKE LIKE SYMPTOMS Discharge Diagnosis: COMPLEX MIGRAINE Condition on Discharge: Good Activity: Resume your previous activity Driving/Machine Use: No driving until reevaluated and allowed by primary care physician Non-emergency contact: Primary Care Provider Call non-emergency contact if: you have any medication questions, your symptoms worsen and you have a fever Follow-up/Referrals: Lakia Alvarez, [Primary Care Provider] - 03/03/20 11:00 am (Date & Time 03/03/2020 11:00 AM Provider Russell Zamorano MD Department Family [facility] ) Diet: Carb Consistent or DM2 and Heart Healthy Addtl Attending Provider Instructions: Please review your new medication list and follow instructions carefully. Call primary care physician or return to the ER immediately if with worsening of symptoms. Follow-up with primary care physician as outlined above. Pending Studies at Discharge: No Stand-Alone Forms: My [employer], Smoking Cessation Medications and DC Order Prescriptions: New aspirin 81 mg Tablet,Delayed Release (Dr/Ec) 81 mg PO QAM Qty: 30 RF: 2 riboflavin (vitamin B2) 400 mg tablet 400 mg PO DAILY Qty: 30 RF: 2 magnesium oxide 400 mg (241.3 mg magnesium) tablet 400 mg PO DAILY Qty: 30 RF: 2 Continued famotidine [Pepcid] 20 mg Tablet 20 mg PO BID RF: 0 lisinopril 10 mg tablet 10 mg PO QAM RF: 0 sertraline [Zoloft] 50 mg tablet 50 mg PO DAILY Qty: 14 RF: 0 omeprazole 40 mg Capsule,Delayed Release(Dr/Ec) 40 mg PO QAM RF: 0 atenolol 25 mg tablet 25 mg PO DAILY RF: 0 albuterol sulfate 90 mcg/actuation HFA aerosol inhaler 2 puff INHALATION Q4H PRN (Reason: Shortness Of Breath) RF: 0 ondansetron 4 mg tablet,disintegrating 4 mg translingual Q8H PRN (Reason: Nausea) RF: 0 Discharge Orders: Discharge Order (Routine); Ordered 02/29/20 Ordered By: Neal Ramirez/Other Patient Handouts: Migraines and Cluster Headaches, Headache Migraine Triggers Prevent, Headache Migraine Meds Lifestyle, Eating Heart- Healthy Foods, Magnesium Salts capsules or tablets immediate release, Riboflavin Vitamin B2 tablets, Aspirin ASA chewable tablets, A1C Admission Data Admit Date/Time: 02/28/20 15:17 Attending Provider: Neal Harmon Admit Provider: Júnior Baez Primary Care Provider: Lakia Alvarez Other Providers: Júnior Baez ; Karey Gupta Other Interventions: Discharge Summary Assessment (RN) Last Done: 02/29/20 17:02
[2020-03-04 09:11] LABS: 18KDIGG Band NON-REACTIVE; 23KDIGG Band NON-REACTIVE; 23KDIGM Band NON-REACTIVE; 28KDIGG Band NON-REACTIVE; 30KDIGG Band NON-REACTIVE; 39KDIGG Band NON-REACTIVE; 39KDIGM Band REACTIVE; 41KDIGG Band NON-REACTIVE; 41KDIGM Band NON-REACTIVE; 45KDIGG Band NON-REACTIVE; 58KDIGG Band NON-REACTIVE; 66KDIGG Band NON-REACTIVE; 93KDIGG Band NON-REACTIVE; Lyme Antibodies, WB IgG NEGATIVE (NEGATIVE); Lyme Antibodies, WB IgM NEGATIVE (NEGATIVE)
== END 2020-02-29 18:35 | disposition home or self-care (01) ==
LOC: 2S 12:51 → ED 12:51 → SUATTDRO 15:17 → 2S 16:39

== ENCOUNTER 2021-03-25 11:00 | Observation (INO) ==
[2021-03-25] MEDS ORDERED: ASPIRIN CHEW 324 MG PO STA (11:25)
[2021-03-25] MEDS ORDERED: NITROGLYCERIN SL 0.4 MG/TAB TAB SL PRN ×2 (11:37→17:21)
--- NOTE | 2021-03-25 11:43 | Emergency Department Note ---
History of Present Illness General Chief complaint: Respiratory Problems Stated complaint: SOB, LEFT ARM PAIN, CONGESTION Time Seen by Provider: 03/25/21 11:15 History of Present Illness Provider complaint: Left eft upper extremity pain shortness of breath Onset (ago): hour(s) 2 Location: chest, upper extremity and left Radiation: non-radiation Severity: moderate Pain Consistency: + intermittent Quality: + aching and + dull Relieved By: + none Exacerbated By: + none Associated symptoms: + shortness of breath; no chest pain, no cough, no fever/chills, no headaches, no malaise, no nausea/vomiting or no weakness 50-year-old female presents emergency department for left upper extremity pain difficulty breathing. Patient states her symptoms began 2 hours prior to arr ival while she was sitting in her recliner at rest. She reports no chest pain. She states the feeling in her arm is dull and feels like heaviness. She denies any recent travel, no exogenous hormone usage, no recent surgeries, no hemoptysis. Patient reports she was feeling dizzy when this occurred. Patient also reports that she has been on amoxicillin for a tooth infection and that she is supposed to have her bottom teeth removed but cannot get into see an oral surgeon yet. Home Medications Medication Instructions Recorded Confirmed Type omeprazole 40 mg capsule,delayed 40 mg PO QAM 07/15/19 03/25/21 History release famotidine 20 mg tablet (Pepcid) 20 mg PO BID 08/26/19 03/25/21 History lisinopril 10 mg tablet 10 mg PO QAM 09/02/19 03/25/21 History albuterol sulfate 90 mcg/actuation 2 puff INHALATION Q4H PRN 02/28/20 03/25/21 History aerosol inhaler atenolol 25 mg tablet 25 mg PO HS 02/28/20 03/25/21 History ondansetron 4 mg disintegrating 4 mg TRANSLINGUAL Q8H PRN 02/28/20 03/25/21 Hist ory tablet aspirin 81 mg tablet,delayed 81 mg PO QAM #30 tab 02/29/20 03/25/21 Rx release buspirone 5 mg tablet 5 mg PO BID 08/03/20 03/25/21 History magnesium oxide 400 mg (241.3 mg 400 mg PO QAM 08/23/20 03/25/21 History magnesium) tablet sertraline 100 mg tablet 200 mg PO QAM 01/09/21 03/25/21 History acetaminophen 325 mg tablet 650 mg PO QID PRN 03/25/21 03/25/21 History (Tylenol) ibuprofen 600 mg tablet 600 mg PO TID PRN 03/25/21 03/25/21 History Allergies Allergy/AdvReac Type Severity Reaction Status Date / Time diphenhydramine AdvReac Intermediate Vomiting Verified 03/25/21 12:49 [From Benadryl] hydromorphone AdvReac Intermediate LIGHTHEADED Verified 03/25/21 12:49 AND VOMITING Past Med/Surg History Medical History Abnormal MRI, spine "[facility] 08/11/15 - indeterminate lesions T 12 and L1" Depression Diverticulosis Gastritis "per EGD 2013" GERD (gastroesophageal reflux disease) HTN (hypertension) Migraine headache Psoriasiform dermatitis Steatohepatitis Surgical History History of hysterectomy History of incisional hernia repair Hx of cholecystectomy Status post tonsillectomy Status post tubal ligation Family History Mother Stroke Father Pancreatic cancer Social History Smoking Status: Never smoker Tobacco Type: Cigarettes Hx Alcohol Use: No Hx Substance Use: No Preferred Language: Micronesian Communication Ability: Effective Machines Technician Required: No Beliefs That Will Affect Care: None marital status: Current Living Situation: Spouse current occupational status: employed Feels Safe at Home: Yes Assistive Devices: Denture - Upper Review of Systems A total of 10 systems reviewed and were otherwise negative Physical Exam Vital Signs Vital Signs - 24 hr 03/25/21 11:09 03/25/21 11:55 03/25/21 12:00 Temperature 36.8 C Temperature Source Temporal Artery Scan Pulse Rate 72 61 60 Respiratory Rate 18 16 25 H Respiratory Effort / Characteristics Non-Labored Respiratory Depth Normal Respiratory Pattern Regular Blood Pressure 212/91 H Blood Pressure Mean 131 Pulse Oximetry 96 Oxygen Delivery Method Room Air Sepsis Recent Fever Within 48 Hours No Sepsis New/Unexplained Change in Mental Status No Sepsis Action Taken by Nursing No Action Required 03/25/21 12:30 03/25/21 12:59 03/25/21 13:00 Temperature Temperature Source Pulse Rate 57 L 64 Respiratory Rate 16 23 Respiratory Effort / Characteristics Respiratory Depth Respiratory Pattern Blood Pressure Blood Pressure Mean Pulse Oximetry 97 Oxygen Delivery Method Room Air Sepsis Recent Fever Within 48 Hours Sepsis New/Unexplained Change in Mental Status Sepsis Action Taken by Nursing Physical Exam GENERAL: She is oriented to person, place, and time. She appears well-developed and well-nourished. She does not appear distressed. HENT: Exam performed. -Head: Normocephalic and atraumatic. -Right Ear: External ear normal. No mastoid tenderness. -Left Ear: External ear normal. No mastoid tenderness. -Mouth/Throat: Extremely poor dentition with multiple decayed teeth on the bottom. No purulent discharge or bleeding. Multiple teeth missing. EYES: Conjunctivae and EOM are normal. Pupils are equal, round, and reactive to light. Right eye exhibits no discharge. Left eye exhibits no discharge. No scleral icterus. NECK: Normal range of motion. Neck supple. No JVD present. No spinous process tenderness present. No carotid bruit present. No rigidity. No tracheal deviation and normal range of motion present. No Brudzinski's sign and no Kernig's sign noted. CV: Normal rate, regular rhythm, normal heart sounds and intact distal pulses. There is no peripheral edema. Palpable radial pulses bue. PULM/CHEST: Effort normal and breath sounds normal. No respiratory distress. No stridor. She has no wheezes. She has no rales. -Chest Wall: She exhibits no tenderness. ABD: The abdomen is soft and obese Bowel sounds are normal. She has no d istension. No mass is present. There is no tenderness. There is no rebound, no guarding, no Turner's sign and no tenderness at McBurney's point. Rovsig negative MUSC/SKEL: Normal range of motion. There is no peripheral edema, tenderness or deformity. LYMPH: No cervical adenopathy. NEURO: She is alert and oriented to person, place, and time. She has normal strength. No cranial nerve deficit or sensory deficit. Coordination and gait normal. GCS eye subscore is 4. GCS verbal subscore is 5. GCS motor subscore is 6. Cerebellar tests wnl. SKIN: Skin is warm and dry. She is not diaphoretic. PSYCH: She has a normal mood and affect. Behavior is normal. Judgment and thought content normal. Course Course 1115: The patient was evaluated in room C2. A complete history and physical exam was performed Cardiac monitoring: An order was placed for continuous cardiac monitoring. The monitor shows a rate of 60 with sinus rhythm 1338: Vital signs stable. Labs and imaging are within normal limits. Patient reports her chest pain has been completely resolved after receiving 1 sublingual nitroglycerin. [facility]. Administered Medications Sodium Chloride (Nss 1000ml) 1,000 mls @ 125 mls/hr IV .Q8H ANJALI Stop: 04/24/21 11:44 Last Admin: 03/25/21 11:55 Dose: 125 mls/hr Documented by: [id number] Nitroglycerin (Nitroglycerin Sl 0.4 Mg/Tab Tab) 0.4 mg SL PRN PRN PRN Reason: Chest Pain Stop: 04/24/21 11:36 Last Admin: 03/25/21 12:11 Dose: 0.4 mg Documented by: [id number] Discontinued Medications Aspirin (Aspirin Chew 324 Mg) 324 mg PO NOW STA Stop: 03/25/21 11:26 Last Admin: 03/25/21 11:55 Dose: 324 mg Documented by: [id number] Medical Decision Making Laboratory Data Result diagrams: 03/25/21 11:49 03/25/21 11:49 Lab Results 03/25/21 03/25/21 03/25/21 Range/Units 11:49 11:49 13:05 WBC 4.96 (4.8-10.8) K/uL RBC 5.14 (4.2-5.4) M/uL Hgb 14.7 (12.0-16.0) g/dL Hct 44.0 (37-47) % MCV 85.6 (80-100) fL MCH 28.6 (25-34) pg MCHC 33.4 (32-36) g/dL RDW Std Deviation 43.0 (36.4-46.3) fL RDW Coeff of Delia 13.7 (11.5-14.5) % Plt Count 199 (130-400) K/uL MPV 9.9 (7.4-10.4) fL Immature Gran % (Auto) 0.2 % Neut % (Auto) 72.4 % Lymph % (Auto) 21.8 % Toole % (Auto) 4.4 % Eos % (Auto) 1.0 % Baso % (Auto) 0.2 % Neut # (Auto) 3.59 (1.4-6.5) K/uL Lymph # (Auto) 1.08 L (1.2-3.4) K/uL Toole # (Auto) 0.22 (0.11-0.59) K/uL Eos # (Auto) 0.05 (0-0.5) K/uL Baso # (Auto) 0.01 (0-0.2) K/uL Immature Gran # (Auto) 0.01 (0.00-0.02) K/uL Sodium 141 (136-145) mmol/L Potassium 4.0 (3.5-5.1) mmol/L Chloride 107 (98-107) mmol/L Carbon Dioxide 25 (21-32) mmol/L Anion Gap 9.0 (3-11) BUN 17 (7-18) mg/dl Creatinine 1.33 H (0.6-1.2) mg/dl Est Cr Clr Drug Dosing 63.9 ml/min Est GFR ( Amer) 53.9 ml/min Est GFR (Non-Af Amer) 46.5 ml/min BUN/Creatinine Ratio 12.8 (10-20) Glucose 129 H (70-99) mg/dl Calcium 9.5 (8.5-10.1) mg/dl Troponin I < 0.015 (0-0.045) ng/ml Lipase 133 (73-393) U/L SARS-CoV-2, RNA, NAAT NEGATIVE (NEGATIVE) Imaging Data Radiologist's Impression: Chest X-Ray 03/25/21 11:25 XR chest 2V PA/lateral HISTORY: 50 years-old Female Chest Pain acute atypical chest pain with shortness of breath COMPARISON: Chest radiograph 02/13/2021 TECHNIQUE: PA and lateral views of the chest FINDINGS: Cardiomediastinal and hilar silhouettes are within normal limits. Unchanged moderate hemidiaphragmatic elevation. No pneumothorax, pleural effusion, airspace consolidation or overt pulmonary edema. Cholecystectomy. Bones appear grossly intact. IMPRESSION: No acute process. ACT 112: Negative or not required by law. The above report was generated using voice recognition software. It may contain grammatical, syntax or spelling errors. Electronically signed by: Jovan Dover M.D. 03/25/2021 12:40 PM ECG Data Indication: + chest pain Rate (beats per minute): 58 Rhythm: + normal sinus ECG Intervals/blocks: + Normal GA and + Normal QT-c ECG ST segments: + Normal ST segments Additional Comments: QRS 74 MDM Narrative Vital signs stable. Labs and imaging are within normal limits. Patient reports her chest pain has been completely resolved after receiving 1 sublingual nitroglycerin. Patient [facility] be [facility] into [facility] hospitalist team for chest pain rule out ACS. Impression & Plan Chest pain Discharge Plan Visit Data Chief Complaint: Respiratory Problems Stated Complaint: SOB, LEFT ARM PAIN, CONGESTION ED Provider: Efren Deleon Discharge Problem: Chest pain Patient Disposition: Being Evaluated by Hospitalist Forms Stand Alone Forms: [facility] [place] Prescriptions Prescriptions: No Action famotidine [Pepcid] 20 mg Tablet 20 mg PO BID RF: 0 lisinopril 10 mg tablet 10 mg PO QAM RF: 0 omeprazole 40 mg Capsule,Delayed Release(Dr/Ec) 40 mg PO QAM RF: 0 atenolol 25 mg tablet 25 mg PO HS RF: 0 albuterol sulfate 90 mcg/actuation HFA aerosol inhaler 2 puff INHALATION Q4H PRN (Reason: Shortness Of Breath) RF: 0 ondansetron 4 mg tablet,disintegrating 4 mg translingual Q8H PRN (Reason: Nausea) RF: 0 aspirin 81 mg Tablet,Delayed Release (Dr/Ec) 81 mg PO QAM Qty: 30 RF: 2 sertraline 100 mg tablet 200 mg PO QAM RF: 0 buspirone 5 mg tablet 5 mg PO BID RF: 0 magnesium oxide 400 mg (241.3 mg magnesium) tablet 400 mg PO QAM RF: 0 acetaminophen [Tylenol] 325 mg Tablet 650 mg PO QID PRN (Reason: Pain) RF: 0 ibuprofen 600 mg tablet 600 mg PO TID PRN (Reason: Pain) RF: 0 Referrals Referrals: Lakia Alvarez DO [Primary Care Provider] -
[2021-03-25] MEDS ORDERED: SODIUM CHLORIDE 0.9% 1000ML 1,000 ML IV SCH (11:45)
[2021-03-25 11:58] LABS: Basophils # (auto) 0.01 K/uL (0-0.2); Basophils % (auto) 0.2 %; Eosinophils # (auto) 0.05 K/uL (0-0.5); Hemoglobin 14.7 g/dL (12.0-16.0); Immature Granulocytes # (auto) 0.01 K/uL (0.00-0.02); Immature Granulocytes % (auto) 0.2 %; Lymphocytes # (auto) 1.08 K/uL (1.2-3.4); Lymphocytes % (auto) 21.8 %; Mean Corpuscular Hemoglobin 28.6 pg (25-34); Mean Corpuscular Hgb Conc 33.4 g/dL (32-36); Mean Corpuscular Volume 85.6 fL (80-100); Mean Platelet Volume 9.9 fL (7.4-10.4); Monocytes # (auto) 0.22 K/uL (0.11-0.59); Monocytes % (auto) 4.4 %; Neutrophils # (auto) 3.59 K/uL (1.4-6.5); Neutrophils % (auto) 72.4 %; Platelet Count 199 K/uL (130-400); RDW Coefficient of Variation 13.7 % (11.5-14.5); Red Blood Count 5.14 M/uL (4.2-5.4); White Blood Count 4.96 K/uL (4.8-10.8)
[2021-03-25 12:19] LABS: BUN Creatinine Ratio 12.8 (10-20); Blood Urea Nitrogen 17 mg/dl (7-18); Calcium 9.5 mg/dl (8.5-10.1); Carbon Dioxide 25 mmol/L (21-32); Chloride 107 mmol/L (98-107); Creatinine Clr Calc Pharmacy 63.9 ml/min; Est GFR (African American) 53.9 ml/min; Est GFR (Non-African American) 46.5 ml/min; Glucose 129 mg/dl (70-99); Lipase 133 U/L (73-393); Sodium 141 mmol/L (136-145)
[2021-03-25 12:24] LABS: Troponin I < 0.015 ng/ml (0-0.045)
--- NOTE | 2021-03-25 12:41 | XRay Report ---
XR chest 2V PA/lateral HISTORY: 50 years-old Female Chest Pain acute atypical chest pain with shortness of breath COMPARISON: Chest radiograph 02/13/2021 TECHNIQUE: PA and lateral views of the chest FINDINGS: Cardiomediastinal and hilar silhouettes are within normal limits. Unchanged moderate hemidiaphragmati c elevation. No pneumothorax, pleural effusion, airspace consolidation or overt pulmonary edema. Chol ecystectomy. Bones appear grossly intact. IMPRESSION: No acute process. ACT 112: Negative or not required by law. The above report was generated using voice recognition software. It may contain grammatical, syntax o r spelling errors. Electronically signed by: Jovan Dover M.D. 03/25/2021 12:40 PM
--- NOTE | 2021-03-25 13:57 | History & Physical Report ---
Date of Service March 25, 2021 Assessment & Plan (1) Chest pain: Plan: Possible hypertensive emergency Patient is 50-year-old female with PMH HTN, depression, anxiety, GERD presented to ER with complaint of chest pain, SOB, palpations, LUE paresthesias and heavin ess today. History dobutamine stress test in 2015 was negative for inducible ischemia, EF 60%, grade 1 diastolic dysfunction. In ER patient patient afebrile, B BP: 212/91, other vitals stable. Negative troponin. EKG sinus bradycardia, Q waves inferior, no significant change from prior EKG. Was given 1 sublingual nitroglycerin with resolution of symptoms and BP down to 186/98 Given 324mg aspirin in ER CHEST PAIN R/O ACS. Risk factors: HTN, obesity -Monitor Vitals -Repeat EKG in am -Will trend troponin -Echo -lipid panel in am -Continue aspirin -Continue atenolol -Will increased lisinopril from 10mg to 20mga -Patient was previously on HCTZ, however reports was taken off approx 1 month ago as she states she felt "weird" on it and had some itching -Nitro prn CP and repeat EKG for CP -Consider cardiology consult if no improvement or elevation troponin -CBC, BMP in am (2) HTN (hypertension): Plan: -Continue atenolol -Increase lisinopril from 10mg to 20mg daily -Pt has been off HCTZ for one month for possible itching side effect -Monitor BP, may need to add additional meds (3) Depression: Plan: -Continue sertraline, buspirone (4) GERD (gastroesophageal reflux disease): Plan: -Continue H2 pau, PPI DVT Prophylaxis -SCDs Full Code as per discussion with pt Follows with Dr Lakia Alvarez for routine care Pt was seen and care coordinated with Dr Henderson. See addendum History of Present Illness Chief Complaint: Left arm pain, chest pain Primary Care Provider: Lakia Alvarez DO Patient is 50-year-old female with PMH HTN, depression, anxiety, GERD presented to ER with complaint of chest pain. Patient states this morning was standing making breakfast when she started to have some dizziness. She states she did not eat very much breakfast that she was feeling bloated and felt like she was having acid reflux. She sat in recliner and started having onset of left arm heaviness and tingling, left chest pain described as sharp, palpitations, and shortness of breath. Also complains of nausea without vomiting. Denies syncope. Reports over the past several months has been having shortness of breath and chest heaviness with exertion. History dobutamine stress test in 2015 was negative for inducible ischemia, EF 60%, grade 1 diastolic dysfunction. Denies fever/chills, diarrhea, constipation, BRIGGS, syncope, vision changes, neck pain, cough, sore throat, choking, otalgia, rhinorrhea, abdominal pain, weakness, extremity weakness, extremity edema, rashes, urinary symptoms. In ER patient patient afebrile, B BP: 212/91, other vitals stable. Negative troponin. EKG sinus bradycardia, Q waves inferior, no significant change from prior EKG. Was given 1 sublingual nitroglycerin with resolution of symptoms. Allergies Allergy/AdvReac Type Severity Reaction Status Date / Time diphenhydramine AdvReac Intermediate Vomiting Verified 03/25/21 12:49 [From Benadryl] hydromorphone AdvReac Intermediate LIGHTHEADED Verified 03/25/21 12:49 AND VOMITING Home Medications Medication Instructions Recorded Confirmed Type omeprazole 40 mg capsule,delayed 40 mg PO QAM 07/15/19 03/25/21 History release famotidine 20 mg tablet (Pepcid) 20 mg PO BID 08/26/19 03/25/21 History lisinopril 10 mg tablet 10 mg PO QAM 09/02/19 03/25/21 History albuterol sulfate 90 mcg/actuation 2 puff INHALATION Q4H PRN 02/28/20 03/25/21 History aerosol inhaler atenolol 25 mg tablet 25 mg PO HS 02/28/20 03/25/21 History ondansetron 4 mg disintegrating 4 mg TRANSLINGUAL Q8H PRN 02/28/20 03/25/21 History tablet aspirin 81 mg tablet,delayed 81 mg PO QAM #30 tab 02/29/20 03/25/21 Rx release buspirone 5 mg tablet 5 mg PO BID 08/03/20 03/25/21 History magnesium oxide 400 mg (241.3 mg 400 mg PO QAM 08/23/20 03/25/21 History magnesium) tablet sertraline 100 mg tablet 200 mg PO HS 01/09/21 03/25/21 History acetaminophen 325 mg tablet 650 mg PO QID PRN 03/25/21 03/25/21 History (Tylenol) ibuprofen 600 mg tablet 600 mg PO TID PRN 03/25/21 03/25/21 History Past Med/Surg History Medical History (Updated 03/25/21 @ 14:17 by Alejandra Guerra PA-C) Abnormal MRI, spine "[facility] 08/11/15 - indeterminate lesions T 12 and L1" Depression Diverticulosis Gastritis "per EGD 2013" GERD (gastroesophageal reflux disease) HTN (hypertension) Migraine headache Psoriasiform dermatitis Steatohepatitis Surgical History History of hysterectomy History of incisional hernia repair Hx of cholecystectomy Status post tonsillectomy Status post tubal ligation Family History (Updated 03/25/21 @ 14:19 by Alejandra uGerra PA-C) Mother Stroke Father Pancreatic cancer Sister Hypertension Social History (Updated 03/25/21 @ 14:19 by Alejandra Guerra PA-C) Smoking Status: Former smoker Tobacco Type: Cigarettes Hx Alcohol Use: No Hx Substance Use: No Preferred Language: Mongolian Communication Ability: Effective Brush Or Broom Cutter Required: No Beliefs That Will Affect Care: None marital status: Current Living Situation: Spouse current occupational status: employed Feels Safe at Home: Yes Assistive Devices: Denture - Upper Review of Systems Review of Systems: All systems reviewed & are unremarkable except as noted in HPI & below Physical Exam Physical Exam: General: no distress, WDWN Head: normocephalic, atraumatic Eyes: PERRL, EOM's intact, conjunctiva non-injected, anicteric ENT: normal inspection external ears, nose, mucous membranes moist Neck: supple, trachea midline, non-tender Lungs: clear, no respiratory distress, no wheezing/rhonchi/rales CV: RRR, no murmur, no JVD, no pretibial edema Abd: normal BS, soft, non-tender Ext: no cyanosis, no calf tenderness Neuro: A&O x 3, no focal deficits noted, normal affect Skin: warm, dry Results & Data Results & Data ([facility]) Vital Signs (Past 12 Hours) Vital Signs Temp Pulse Resp BP BP Pulse Ox 03/25/21 13:39 186/98 H 03/25/21 13:00 64 23 03/25/21 12:59 97 03/25/21 12:30 57 L 16 03/25/21 12:00 60 25 H 03/25/21 11:55 61 16 03/25/21 11:09 36.8 C 72 18 212/91 H 96 Laboratory Results Short CBC 03/25/21 Range/Units 11:49 WBC 4.96 (4.8-10.8) K/uL Hgb 14.7 (12.0-16.0) g/dL Hct 44.0 (37-47) % Plt Count 199 (130-400) K/uL BMP 03/25/21 11:49 Sodium 141 Potassium 4.0 Chloride 107 Carbon Dioxide 25 BUN 17 Creatinine 1.33 H Glucose 129 H Calcium 9.5 Cardiac Enzymes 03/25/21 Range/Units 11:49 Troponin I < 0.015 (0-0.045) ng/ml Diagnostic Findings Chest X-Ray 03/25/21 11:25 XR chest 2V PA/lateral HISTORY: 50 years-old Female Chest Pain acute atypical chest pain with shortness of breath COMPARISON: Chest radiograph 02/13/2021 TECHNIQUE: PA and lateral views of the chest FINDINGS: Cardiomediastinal and hilar silhouettes are within normal limits. Unchanged moderate hemidiaphragmatic elevation. No pneumothorax, pleural effusion, airspace consolidation or overt pulmonary edema. Cholecystectomy. Bones appear grossly intact. IMPRESSION: No acute process. ACT 112: Negative or not required by law. The above report was generated using voice recognition software. It may contain grammatical, syntax or spelling errors. Electronically signed by: Jovan Dover M.D. 03/25/2021 12:40 PM Supervising Physician Co-Signing Physician Notes Pt is a 50 y/o F with hx of HTN, GERD, migraine, Depression/Anxiety, [facility] admitted for HTN urgency and Chest pain. Exam: NAD Cards: Normal S1/S2, no murmur Lungs: CTA, no wheezing Abd: ND, NT, soft MSK: no edema Psych: AAOx3 A/P: Chest pain: -no changes in EKG -will trend trop -Echo pending HTN urgency: -BP improved slightly with nitro -will increase the Lisinopril to 20mg daily - will consider prn labetalol or Lopressor depending on the HR and BP Agree with A/P by Alejandra Guerra PA-C (1) Chest pain Chest pain type: unspecified Qualified Code(s): R07.9 - Chest pain, unspecified (2) HTN (hypertension) Hypertension type: primary hypertension Qualified Code(s): I10 - Essential (primary) hypertension
--- NOTE | 2021-03-25 14:31 | Electrocardiogram Report ---
Test Reason : Blood Pressure : / mmHG Vent. Rate : 058 BPM Atrial Rate : 058 BPM P-R Int : 178 ms QRS Dur : 074 ms QT Int : 436 ms P-R-T Axes : 030 004 076 degrees QTc Int : 428 ms Sinus bradycardia Possible Inferior infarct (cited on or before 09-JAN-2021) Abnormal ECG When compared with ECG of 13-FEB-2021 06:25, No significant change was found Confirmed by Jarrod Webster ([id number]) on 03/25/2021 2:31:28 PM Referred By: REFERRED SELF Confirmed By:Jarrod Webster
[2021-03-25] MEDS ORDERED: lisinopril 10 MG TAB PO ONE (15:02)
[2021-03-25] MEDS ORDERED: ALBUTEROL HFA 8 GM INHALER INH PRN (17:21)
[2021-03-25] MEDS: ACETAMINOPHEN 325 MG TAB PO PRN (21:00)
[2021-03-25] MEDS: FAMOTIDINE 20 MG TAB PO SCH (21:01)
[2021-03-25] MEDS: busPIRone 5 MG TAB PO SCH (21:01)
[2021-03-25] MEDS: ATENOLOL 25 MG TABLET PO SCH (21:01)
[2021-03-25] MEDS: SERTRALINE HCL 100 MG TABLET PO SCH (21:01)
[2021-03-26 05:27] LABS: Hematocrit (blood only) 41.1 % (37-47); Hemoglobin 13.4 g/dL (12.0-16.0); Mean Corpuscular Hemoglobin 28.4 pg (25-34); Mean Corpuscular Hgb Conc 32.6 g/dL (32-36); Mean Corpuscular Volume 87.1 fL (80-100); Platelet Count 200 K/uL (130-400); RDW Coefficient of Variation 13.9 % (11.5-14.5); RDW Standard Deviation 44.4 fL (36.4-46.3); Red Blood Count 4.72 M/uL (4.2-5.4); White Blood Count 4.62 K/uL (4.8-10.8)
[2021-03-26 05:37] LABS: BUN Creatinine Ratio 14.7 (10-20); Calcium 8.9 mg/dl (8.5-10.1); Creatinine Clr Calc Pharmacy 71.4 ml/min; Est GFR (African American) 61.6 ml/min; Est GFR (Non-African American) 53.2 ml/min; Potassium 4.2 mmol/L (3.5-5.1)
[2021-03-26] MEDS: ASPIRIN 81 MG ECTAB PO SCH (09:01)
[2021-03-26] MEDS: busPIRone 5 MG TAB PO SCH ×2 (09:02→20:59)
[2021-03-26] MEDS: FAMOTIDINE 20 MG TAB PO SCH ×2 (09:02→20:59)
[2021-03-26] MEDS: lisinopril 20 MG TAB PO SCH (09:03)
[2021-03-26] MEDS: MAGNESIUM OXIDE 400 MG TAB PO SCH (09:03)
[2021-03-26] MEDS: PANTOprazole 40 MG TAB PO SCH (09:03)
[2021-03-26] MEDS ORDERED: ATROPINE SULFATE 0.1 MG/ML 10ML SYR IV ONE (12:07)
[2021-03-26] MEDS ORDERED: METOPROLOL TARTRATE 1 MG/ML VIAL IV ONE (12:07)
[2021-03-26] MEDS ORDERED: DOBUTamine HCL 12.5 MG/ML 20 ML VIAL IV ONE (12:07)
--- NOTE | 2021-03-26 13:04 | Hospitalist Progress Note ---
Date of Service March 26, 2021 Assessment & Plan (1) Chest pain: Plan: Patient is a 50 yr female with PMH HTN, depression, anxiety, GERD presented to ER with complaint of chest pain, SOB, palpations, LUE paresthesias and heaviness today. History dobutamine stress test in 2014 was negative for inducible ischemia, EF 60%, grade 1 diastolic dysfunction. Chest Pain R/O ACS Risk factors: HTN, obesity Troponin Negative EKG unchanged Echo showed no wall motion abnormality We will obtain stress test Currently chest pain-free Continue aspirin, beta-pau, lisinopril (2) HTN (hypertension): Plan: Hypertensive Urgency BP Variable Continue atenolol Increase lisinopril from 10mg to 20mg daily H/O HCTZ intolerance Advised to follow-up with primary care physician for further adjustment of blood pressure medications as needed Consider Sleep Study as outpatient Sinus bradycardia Asymptomatic On atenolol Advised to follow-up with PCP/cardiology as outpatient (3) Depression: Plan: -Continue sertraline, buspirone (4) GERD (gastroesophageal reflux disease): Plan: -Continue H2 pau, PPI DVT Prophylaxis -SCDs Code Status Full Code Admission and Anticipated Discharge Date Admission Date: March 25, 2021 Subjective Patient is seen and examined at bedside Chest pain resolved States having headache associated with nausea this morning Denies any dyspnea, dizziness, abdominal pain Offers no other complaints Review of Systems Review of Systems: All systems reviewed & are unremarkable except as noted in Subjective Physical Exam Physical Exam: Physical Exam: Vitals signs as noted above General Appearance:Morbid Obese, no apparent distress Head: normocephalic, Atraumatic Eyes: normal inspection, EOMI Neck: supple, Trachea midline Respiratory/Chest: Normal breath sounds, CTA, No accessory muscle use Cardiovascular: S1, S2, No murmur, reproducible tenderness on palpation Abdomen/GI:Soft, Non tender, Bowel sounds present Extremities/Musculoskeletal:normal inspection, no edema Neurologic/Psych:AAOX3, grossly no focal neurological deficits Skin: normal color, warm Results & Data Results & Data ([facility]) Vital Signs (Past 12 Hours) Vital Signs Temp Pulse Resp BP Pulse Ox 03/26/21 11:04 36.9 C 53 L 20 102/63 95 03/26/21 07:50 36.8 C 49 L 18 134/77 93 03/26/21 02:34 65 18 138/72 99 Laboratory Results Short CBC 03/26/21 Range/Units 04:56 WBC 4.62 L (4.8-10.8) K/uL Hgb 13.4 (12.0-16.0) g/dL Hct 41.1 (37-47) % Plt Count 200 (130-400) K/uL BMP 03/26/21 04:56 Sodium 140 Potassium 4.2 Chloride 110 H Carbon Dioxide 27 BUN 17 Creatinine 1.19 Glucose 115 H Calcium 8.9 Cardiac Enzymes 03/25/21 03/26/21 Range/Units 18:49 00:32 Troponin I < 0.015 < 0.015 (0-0.045) ng/ml (1) Chest pain Chest pain type: unspecified Qualified Code(s): R07.9 - Chest pain, unspecified (2) HTN (hypertension) Hypertension type: primary hypertension Qualified Code(s): I10 - Essential (primary) hypertension
[2021-03-26] MEDS: ACETAMINOPHEN 325 MG TAB PO PRN (15:14)
[2021-03-26] MEDS ORDERED: ONDANSETRON INJ 2 MG/ML 2 ML VIAL IV PRN (16:00)
[2021-03-26] MEDS: ATENOLOL 25 MG TABLET PO SCH (20:58)
[2021-03-26] MEDS: SERTRALINE HCL 100 MG TABLET PO SCH (20:59)
[2021-03-27 06:31] LABS: Hematocrit (blood only) 40.9 % (37-47); Hemoglobin 13.6 g/dL (12.0-16.0); Mean Corpuscular Hemoglobin 28.8 pg (25-34); Mean Corpuscular Hgb Conc 33.3 g/dL (32-36); Mean Corpuscular Volume 86.5 fL (80-100); Mean Platelet Volume 9.9 fL (7.4-10.4); Platelet Count 191 K/uL (130-400); RDW Standard Deviation 44.8 fL (36.4-46.3); Red Blood Count 4.73 M/uL (4.2-5.4); White Blood Count 5.26 K/uL (4.8-10.8)
[2021-03-27 07:06] LABS: Calcium 9.3 mg/dl (8.5-10.1); Creatinine Clr Calc Pharmacy 60.9 ml/min; Est GFR (African American) 54.4 ml/min; Est GFR (Non-African American) 46.9 ml/min
[2021-03-27] MEDS: FAMOTIDINE 20 MG TAB PO SCH (07:47)
[2021-03-27] MEDS: busPIRone 5 MG TAB PO SCH (07:47)
[2021-03-27] MEDS: ASPIRIN 81 MG ECTAB PO SCH (07:47)
[2021-03-27] MEDS: lisinopril 20 MG TAB PO SCH (07:47)
[2021-03-27] MEDS: MAGNESIUM OXIDE 400 MG TAB PO SCH (07:48)
[2021-03-27] MEDS: PANTOprazole 40 MG TAB PO SCH (07:48)
--- NOTE | 2021-03-27 12:28 | Hospitalist Progress Note ---
Date of Service March 27, 2021 Assessment & Plan (1) Chest pain: Plan: Patient is a 50 yr female with PMH HTN, depression, anxiety, GERD presented to ER with complaint of chest pain, SOB, palpations, LUE paresthesias and heaviness today. History dobutamine stress test in 2014 was negative for inducible ischemia, EF 60%, grade 1 diastolic dysfunction. Chest Pain--Likely musculoskeletal given reproducible with palpation R/O ACS Risk factors: HTN, obesity Troponin Negative EKG unchanged Echo showed no wall motion abnormality stress test: Non ischemic Continue aspirin, beta-pau, lisinopril (2) HTN (hypertension): Plan: Hypertensive Urgency Continue atenolol Increase lisinopril from 10mg to 20mg daily H/O HCTZ intolerance Advised to follow-up with primary care physician for further adjustment of blood pressure medications as needed BP better Consider Sleep Study as outpatient Sinus bradycardia Asymptomatic On atenolol Decreased Atenolol to 12.5mg No pauses/bradycardia arrhythmias on monitor Advised to follow-up with PCP/cardiology as outpatient (3) Depression: Plan: -Continue sertraline, buspirone (4) GERD (gastroesophageal reflux disease): Plan: -Continue H2 pau, PPI DVT Prophylaxis -SCDs Code Status Full Code Admission and Anticipated Discharge Date Admission Date: March 25, 2021 Subjective Patient is seen and examined at bedside States feeling well today Offers no complaints No recurrence of chest pain Headache, nausea resolved Denies any dyspnea, dizziness, abdominal pain Review of Systems Review of Systems: All systems reviewed & are unremarkable except as noted in Subjective Physical Exam Physical Exam: Physical Exam: Vitals signs as noted above General Appearance:Morbid Obese, no apparent distress Head: normocephalic, Atraumatic Eyes: normal inspection, EOMI Neck: supple, Trachea midline Respiratory/Chest: Normal breath sounds, CTA, No accessory muscle use Cardiovascular: S1, S2, No murmur, reproducible tenderness on palpation, bradycardia Abdomen/GI:Soft, Non tender, Bowel sounds present Extremities/Musculoskeletal:normal inspection, no edema Neurologic/Psych:AAOX3, grossly no focal neurological deficits Skin: normal color, warm Results & Data Results & Data ([facility]) Vital Signs (Past 12 Hours) Vital Signs Temp Pulse Pulse Resp BP Pulse Ox 03/27/21 10:49 36.6 C 48 L 20 126/77 94 03/27/21 07:30 37.1 C 55 L 18 124/83 95 03/27/21 07:10 60 03/27/21 04:00 36.5 C 50 L 18 116/72 95 Laboratory Results Short CBC 03/27/21 Range/Units 06:15 WBC 5.26 (4.8-10.8) K/uL Hgb 13.6 (12.0-16.0) g/dL Hct 40.9 (37-47) % Plt Count 191 (130-400) K/uL BMP 03/27/21 06:15 Sodium 139 Potassium 4.0 Chloride 109 H Carbon Dioxide 24 BUN 21 H Creatinine 1.32 H Glucose 118 H Calcium 9.3 (1) Chest pain Chest pain type: unspecified Qualified Code(s): R07.9 - Chest pain, unspecified (2) HTN (hypertension) Hypertension type: primary hypertension Qualified Code(s): I10 - Essential (primary) hypertension
--- NOTE | 2021-03-27 12:34 | Discharge Summary ---
Date of Service March 27, 2021 Admission HPI Per Admitting Provider Patient is 50-year-old female with PMH HTN, depression, anxiety, GERD presented to ER with complaint of chest pain. Patient states this morning was standing making breakfast when she started to have some dizziness. She states she did not eat very much breakfast that she was feeling bloated and felt like she was having acid reflux. She sat in recliner and started having onset of left arm heaviness and tingling, left chest pain described as sharp, palpitations, and shortness of breath. Also complains of nausea without vomiting. Denies syncope. Reports over the past several months has been having shortness of breath and chest heaviness with exertion. History dobutamine stress test in 2015 was negative for inducible ischemia, EF 60%, grade 1 diastolic dysfunction. Denies fever/chills, diarrhea, constipation, BRIGGS, syncope, vision changes, neck pain, cough, sore throat, choking, otalgia, rhinorrhea, abdominal pain, weakness, extremity weakness, extremity edema, rashes, urinary symptoms. In ER patient patient afebrile, B BP: 212/91, other vitals stable. Negative troponin. EKG sinus bradycardia, Q waves inferior, no significant change from prior EKG. Was given 1 sublingual nitroglycerin with resolution of symptoms. Admission Exam Per Admitting Provider Physical Exam Physical Exam: General: no distress, WDWN Head: normocephalic, atraumatic Eyes: PERRL, EOM's intact, conjunctiva non-injected, anicteric ENT: normal inspection external ears, nose, mucous membranes moist Neck: supple, trachea midline, non-tender Lungs: clear, no respiratory distress, no wheezing/rhonchi/rales CV: RRR, no murmur, no JVD, no pretibial edema Abd: normal BS, soft, non-tender Ext: no cyanosis, no calf tenderness Neuro: A&O x 3, no focal deficits noted, normal affect Skin: warm, dry Principal Diagnosis Chest Pain Hypertension Sinus Bradycardia Discharge Data Allergies Allergy/AdvReac Type Severity Reaction Status Date / Time diphenhydramine AdvReac Intermediate Vomiting Verified 03/25/21 12:49 [From Benadryl] hydromorphone AdvReac Intermediate LIGHTHEADED Verified 03/25/21 12:49 AND VOMITING Consultations 03/25/21 12:57 ED Decision to Admit Stat Hospital Course (1) Chest pain: Patient is a 50 yr female with PMH HTN, depression, anxiety, GERD presented to ER with complaint of chest pain, SOB, palpations, LUE paresthesias and heaviness today. History dobutamine stress test in 2014 was negative for inducible ischemia, EF 60%, grade 1 diastolic dysfunction. Chest Pain--Likely musculoskeletal given reproducible with palpation R/O ACS Risk factors: HTN, obesity Troponin Negative EKG unchanged Echo showed no wall motion abnormality stress test: Non ischemic Continue aspirin, beta-pau, lisinopril (2) HTN (hypertension): Hypertensive Urgency Continue atenolol Increase lisinopril from 10mg to 20mg daily H/O HCTZ intolerance Advised to follow-up with primary care physician for further adjustment of blood pressure medications as needed BP better Consider Sleep Study as outpatient Sinus bradycardia Asymptomatic On atenolol Decreased Atenolol to 12.5mg No pauses/bradycardia arrhythmias on monitor Advised to follow-up with PCP/cardiology as outpatient (3) Depression: -Continue sertraline, buspirone (4) GERD (gastroesophageal reflux disease): -Continue H2 pau, PPI DVT Prophylaxis -SCDs Code Status Full Code Total Time Total Time Spent Total Time Spent (In Minutes): 40 minutes Discharge Plan Discharge Items Patient Disposition: Home - Self-Care Reason For Visit: CP Discharge Diagnosis: Chest Pain Hypertension Sinus Bradycardia Activity: Per Instructions section Exercise/Sports: Gradually increase as tolerated Non-emergency contact: Primary Care Provider and Chief Underwriter Call non-emergency contact if: you have any medication questions, your symptoms worsen, your pain is concerning for you and you have a fever Follow-up/Referrals: Lakia Alvarez DO [Primary Care Provider] - (Date & Time 03/28/2021 1:40 PM Provider Lakia Alvarez DO Department [facility] ) Diet: Heart Healthy Addtl Attending Provider Instructions: Follow up with your Primary Care Physician on 03/28/2021 1:40 PM Consider following with a hand drawer in for further assessment of bradycardia as outpatient as advised --- Discuss with your physician for further adjustment of your blood pressure medications as advised. ---Consider getting a sleep study as outpatient Seek immediate medical attention if your symptoms reoccur or worsen Please take all medications as instructed on discharge list below. Please call if you have any questions or problems. You can reach a [facility] hospitalist on duty at [facility] 24 hours a day by calling [phone] Pending Studies at Discharge: No Stand-Alone Forms: My [facility], Smoking Cessation Medications and DC Order Prescriptions: New lisinopril 20 mg Tablet 20 mg PO QAM Qty: 30 RF: 0 Continued famotidine [Pepcid] 20 mg Tablet 20 mg PO BID RF: 0 omeprazole 40 mg Capsule,Delayed Release(Dr/Ec) 40 mg PO QAM RF: 0 albuterol sulfate 90 mcg/actuation HFA aerosol inhaler 2 puff INHALATION Q4H PRN (Reason: Shortness Of Breath) RF: 0 ondansetron 4 mg tablet,disintegrating 4 mg translingual Q8H PRN (Reason: Nausea) RF: 0 aspirin 81 mg Tablet,Delayed Release (Dr/Ec) 81 mg PO QAM Qty: 30 RF: 2 sertraline 100 mg tablet 200 mg PO HS RF: 0 buspirone 5 mg tablet 5 mg PO BID RF: 0 magnesium oxide 400 mg (241.3 mg magnesium) tablet 400 mg PO QAM RF: 0 acetaminophen [Tylenol] 325 mg Tablet 650 mg PO QID PRN (Reason: Pain) RF: 0 ibuprofen 600 mg tablet 600 mg PO TID PRN (Reason: Pain) RF: 0 Changed atenolol 25 mg tablet 12.5 mg PO HS Qty: 0 RF: 0 Discontinued lisinopril 10 mg tablet 10 mg PO QAM RF: 0 Discharge Orders: Discharge Order (Routine); Ordered 03/27/21 Ordered By: Júnior Baez Admission Data Admit Date/Time: 03/25/21 14:01 Attending Provider: Júnior Baez Admit Provider: Niranjan Henderson Primary Care Provider: Lakia Alvarez Other Providers: Niranjan Henderson
[2021-03-27] MEDS ORDERED: ATENOLOL 25 MG TABLET PO SCH (21:00)
--- NOTE | 2021-03-29 06:09 | Electrocardiogram Report ---
Test Reason : Blood Pressure : / mmHG Vent. Rate : 046 BPM Atrial Rate : 046 BPM P-R Int : 184 ms QRS Dur : 080 ms QT Int : 478 ms P-R-T Axes : 027 013 077 degrees QTc Int : 418 ms Sinus bradycardia Cannot rule out Inferior infarct When compared with ECG of 25-MAR-2021 11:38, No significant change was found Confirmed by Titus Chapa ([id number]) on 03/29/2021 6:09:31 AM Referred By: REFERRED SELF Confirmed By:Titus Chapa
== END 2021-03-27 13:57 | disposition home or self-care (01) ==
LOC: ED 11:00 → EDINP 11:00 → SUATTDRO 14:01 → 2N 03-26 17:23
DX: Z20.822 Contact with and (suspected) exposure to COVID-19; I10 Essential (primary) hypertension; Z79.899 Other long term (current) drug therapy; R07.9 Chest pain, unspecified; Z88.8 Allergy status to other drugs, medicaments and biological substances; F32.9 Major depressive disorder, single episode, unspecified; K21.9 Gastro-esophageal reflux disease without esophagitis; Z79.82 Long term (current) use of aspirin; Z87.891 Personal history of nicotine dependence; R00.1 Bradycardia, unspecified

== ENCOUNTER 2021-10-18 13:22 | Observation (INO) ==
[2021-10-18] MEDS ORDERED: ASPIRIN CHEW 324 MG PO STA (13:41)
[2021-10-18] MEDS ORDERED: SODIUM CHLORIDE 0.9% 1000ML 1,000 ML IV ONE (13:48)
[2021-10-18] MEDS ORDERED: NITROGLYCERIN SL 0.4 MG/TAB TAB SL STA (13:48)
[2021-10-18 14:14] LABS: Basophils # (auto) 0.03 K/uL (0-0.2); Basophils % (auto) 0.5 %; Eosinophils # (auto) 0.08 K/uL (0-0.50); Eosinophils % (auto) 1.3 %; Hematocrit (blood only) 42.3 % (34.1-44.9); Hemoglobin 14.1 g/dl (12.0-16.0); Immature Granulocytes # (auto) 0.03 K/uL (0.00-0.02); Immature Granulocytes % (auto) 0.5 %; Lymphocytes # (auto) 1.52 K/uL (1.2-3.4); Lymphocytes % (auto) 24.8 %; Mean Corpuscular Hemoglobin 28.7 pg (25.0-34.0); Mean Corpuscular Hgb Conc 33.3 g/dL (32.0-36.0); Mean Corpuscular Volume 86.2 fL (80.0-100.0); Mean Platelet Volume 10.3 fL (9.4-12.3); Monocytes # (auto) 0.26 K/uL (0.24-0.82); Monocytes % (auto) 4.2 %; Neutrophils # (auto) 4.21 K/uL (1.4-6.5); Neutrophils % (auto) 68.7 %; Platelet Count 222 K/uL (130-400); RDW Coefficient of Variation 13.3 % (11.5-14.5); RDW Standard Deviation 41.5 fL (36.4-46.3); Red Blood Count 4.91 M/uL (3.93-5.22); White Blood Count 6.13 K/ul (4.8-10.8)
--- NOTE | 2021-10-18 14:15 | XRay Report ---
XR chest 1V portable CLINICAL HISTORY: Chest Pain TECHNIQUE: Single frontal radiograph of the chest was obtained. Comparison: Comparison is made to chest radiograph 09/06/2021 FINDINGS: No lines and tubes are seen. The cardiomediastinal silhouette is normal. The lungs are clear. No evid ence of pleural effusion or pneumothorax. IMPRESSION: No acute chest disease. ACT 112: Negative or not required by law. Electronically signed by: Primo Nagel M.D. 10/18/2021 2:13 PM
[2021-10-18 14:25] LABS: Partial Thromboplastin Ratio 0.9; Partial Thromboplastin Time 25.4 Seconds (21.0-31.0); Prothrombin Time 10.3 Seconds (9.0-12.0)
[2021-10-18 14:50] LABS: BUN Creatinine Ratio 15.7 (10-20); Calcium 9.3 mg/dl (8.5-10.1); Creatinine Clr Calc Pharmacy 80.2 ml/min; Est GFR (African American) 73.8 ml/min; Est GFR (Non-African American) 63.6 ml/min; Potassium 3.8 mmol/L (3.5-5.1)
[2021-10-18 15:09] LABS: Troponin I High Sensitivity 4.2 pg/ml (0-14)
--- NOTE | 2021-10-18 15:22 | Electrocardiogram Report ---
Test Reason : Blood Pressure : / mmHG Vent. Rate : 069 BPM Atrial Rate : 069 BPM P-R Int : 172 ms QRS Dur : 072 ms QT Int : 406 ms P-R-T Axes : 021 019 067 degrees QTc Int : 435 ms Poor data quality, interpretation may be adversely affected Normal sinus rhythm Low voltage QRS Borderline ECG When compared with ECG of 06-SEP-2021 11:34, Criteria for Inferior infarct are no longer Present Confirmed by Laurent Matute ([id number]) on 10/18/2021 3:22:36 PM Referred By: REFERRED SELF Confirmed By:Demetrius Matute
--- NOTE | 2021-10-18 16:36 | History & Physical Report ---
Date of Service October 18, 2021 Assessment & Plan (1) Chest pain: Plan: - Admit to tele for observation for r/o - Most recent lipid panel from 10/16/21 was triglycerides 125, cholesterol 156, non HDL cholesterol 125, HDL 31, LDL 100 - Trend cardiac biomarkers, initial set was negative, q6H x 3 more sets - EKG reviewed as above without acute changes or ST wave inversions - Check 2 D echo - If negative enzymes can consider a stress test tomorrow morning. pt has had do butamine stress test in the past. (2) HTN (hypertension): Plan: - May continue lisionpril, HCTZ (3) DM II (diabetes mellitus, type II), controlled: Plan: - A1C on 10/16 was 6.6, no need to repeat - ISS with accuchecks achs - Discussion regarding weight loss, diet and exercise was held at the bedside with the patient (4) GERD (gastroesophageal reflux disease): Plan: - cont omeprazole DVT ppx: - teds, scds, heprarin subq CODE: Full code Dispo: From home, likely to remain in the hospital x 1- night for observation History of Present Illness Chief Complaint: chest pain Primary Care Provider: Bruno Lincoln MD This is 51 yo F with PMHx of HTN, fatty liver, depression with anxiety, GERD, and obesity with BMI of 40.0 who presents with acute onset of chest pain. Reports that this started around 11 AM this morning and her left side with associated shortness of breath and radiation of sharp stabbing pain into her left arm and up into the left side of her neck. She notes that it lasted about 20 to 25 minutes and she took a baby aspirin during this timeframe which seemed to improve her symptoms. Other associated symptoms include nausea but no vomiting diaphoresis. She is unsure if she was having a panic attack at this p oint in time but had not been under any stressful situation and to incite this type of response. She previously had similar presentation of chest/heart pain about 3 years ago where she underwent a dobutamine stress test here at this hospital. The results of it were negative and she did not require any further intervention. Since then she has not seen a director radio. She follows locally with [facility] due to insurance issues. Recently she has been working with them to get dental care due to poor dentition, but she denies any recent fevers chills or sweats or local infections requiring antibiotics. Patient has been taking all her medications as prescribed and did take routinely scheduled medications earlier this morning. Allergies Allergy/AdvReac Type Severity Reaction Status Date / Time diphenhydramine AdvReac Intermediate Vomiting Verified 09/06/21 13:05 [From Benadryl] hydromorphone AdvReac Intermediate LIGHTHEADED Verified 09/06/21 13:05 AND VOMITING Home Medications Medication Instructions Recorded Confirmed Type omeprazole 40 mg capsule,delayed 40 mg PO QAM 07/15/19 09/06/21 History release famotidine 20 mg tablet (Pepcid) 20 mg PO BID 08/26/19 09/06/21 History albuterol sulfate 90 mcg/actuation 2 puff inhalation Q4H PRN 02/28/20 09/06/21 History aerosol inhaler Shortness Of Breath aspirin 81 mg tablet,delayed 81 mg PO QAM #30 tabs 02/29/20 09/06/21 Rx release buspirone 5 mg tablet 5 mg PO BID 08/03/20 09/06/21 History magnesium oxide 400 mg (241.3 mg 400 mg PO QAM 08/23/20 09/06/21 History magnesium) tablet sertraline 100 mg tablet 200 mg PO HS 01/09/21 09/06/21 History lisinopril 20 mg tablet 20 mg PO QAM #30 tabs 03/27/21 09/06/21 Rx hydrochlorothiazide 12.5 mg tablet 12.5 mg PO QAM 04/20/21 09/06/21 History lorazepam 0.5 mg tablet 0.5 mg sublingual DAILY PRN Anxiety 06/17/21 09/06/21 History ondansetron 4 mg disintegrating 4 mg translingual Q8H PRN nausea 06/17/21 09/06/21 History tablet and vomiting metformin 500 mg tablet 500 mg PO BID 09/06/21 09/06/21 History Past Med/Surg History Medical History Abnormal MRI, spine "[facility] 08/11/15 - indeterminate lesions T 12 and L1" Depression Diverticulosis Gastritis "per EGD 2013" GERD (gastroesophageal reflux disease) HTN (hypertension) Migraine headache Psoriasiform dermatitis Steatohepatitis Surgical History History of hysterectomy History of incisional hernia repair Hx of cholecystectomy Status post tonsillectomy Status post tubal ligation Family History Mother Stroke Father Pancreatic cancer Sister Hypertension Social History Smoking Status: Former smoker Tobacco Type: Cigarettes Hx Alcohol Use: No Hx Substance Use: No Preferred Language: Cambodian Communication Ability: Effective Stereotyper Required: No Beliefs That Will Affect Care: None marital status: Current Living Situation: Spouse current occupational status: employed Feels Safe at Home: Yes Assistive Devices: None Review of Systems Review of Systems: Constitutional: No fever, chills, sweats, fatigue or weakness Eyes: No diplopia, no changes in vision ENT: No sore throat, tinnitus, or trouble swallowing Respiratory: No shortness of breath, No dyspnea at rest or on exertion, no cough or sputum Cardiovascular: + Chest pain as described per HPI, no palpitations, or flutter Abdomen: No pain, No constipation, No diarrhea, No nausea, No vomiting Musculoskeletal: No calf pain, No joint pain, No swelling Genitourinary : No dysuria or urinary frequency, No hematuria Neurologic: No numbness/tingling, no difficulty with ambulation, no sensory or motor deficits Psychiatric: + History of anxiety symptoms controlled with medication Endocrine: No fatigue, No weight changes Integumentary: No itch, No rash Physical Exam Physical Exam: Constitutional: WD/AT, + obese with BMI of 40.0 Eyes: PERRL, EOMI ENT: hearing grossly normal, mucous membranes are moist, upper denture plate, poor dentition of lower jaw Respiratory: On room air, no respiratory distress, lungs clear, no adventitious breath sounds, no accessory muscle use Cardiovascular: Pain with palpation of the chest wall, RRR no MRGs, peripheral pulses intact Abdomen: NABS x 4, nondistended, nontender, no organomegaly Extremities: Non-tender, no pedal edema, no calf tenderness with palpation Neurologic: AAO x 3, CN II-XII intact, no motor weakness Psychiatric: Normal mood and affect Skin: normal color, warm/dry, no rash Results & Data Results & Data ([facility]) Vital Signs (Past 12 Hours) Vital Signs Temp Pulse Pulse Resp BP BP Pulse Ox 10/18/21 15:48 65 20 145/84 H 97 10/18/21 14:20 20 159/91 H 95 10/18/21 14:10 69 22 95 10/18/21 14:00 82 18 93 10/18/21 13:50 78 96 10/18/21 13:50 96 10/18/21 13:23 36.6 C 72 16 162/89 H 98 O2 Del Method 10/18/21 15:48 Room Air 10/18/21 14:20 10/18/21 14:10 10/18/21 14:00 10/18/21 13:50 10/18/21 13:50 Room Air 10/18/21 13:23 Laboratory Results 10/18/21 10/18/21 10/18/21 15:43 13:50 13:50 WBC RBC Hgb Hct MCV MCH MCHC RDW Std Deviation RDW Coeff of Delia Plt Count MPV Immature Gran % (Auto) Neut % (Auto) Lymph % (Auto) [place] % (Auto) Eos % (Auto) Baso % (Auto) Neut # (Auto) Lymph # (Auto) [place] # (Auto) Eos # (Auto) Baso # (Auto) Immature Gran # (Auto) PT 10.3 INR 1.0 APTT 25.4 PTT Ratio 0.9 Sodium 140 Potassium 3.8 Chloride 106 Carbon Dioxide 28 Anion Gap 6 BUN 16 Creatinine 1.02 Est Cr Clr Drug Dosing 80.2 Est GFR ( Amer) 73.8 Est GFR (Non-Af Amer) 63.6 BUN/Creatinine Ratio 15.7 Glucose 135 H Calcium 9.3 Troponin I High Sens 4.2 Lipase 39 SARS-CoV-2, RNA, NAAT NEGATIVE 10/18/21 13:50 WBC 6.13 RBC 4.91 Hgb 14.1 Hct 42.3 MCV 86.2 MCH 28.7 MCHC 33.3 RDW Std Deviation 41.5 RDW Coeff of Delia 13.3 Plt Count 222 MPV 10.3 Immature Gran % (Auto) 0.5 Neut % (Auto) 68.7 Lymph % (Auto) 24.8 [place] % (Auto) 4.2 Eos % (Auto) 1.3 Baso % (Auto) 0.5 Neut # (Auto) 4.21 Lymph # (Auto) 1.52 [place] # (Auto) 0.26 Eos # (Auto) 0.08 Baso # (Auto) 0.03 Immature Gran # (Auto) 0.03 H PT INR APTT PTT Ratio Sodium Potassium Chloride Carbon Dioxide Anion Gap BUN Creatinine Est Cr Clr Drug Dosing Est GFR ( Amer) Est GFR (Non-Af Amer) BUN/Creatinine Ratio Glucose Calcium Troponin I High Sens Lipase SARS-CoV-2, RNA, NAAT Diagnostic Findings Chest X-Ray 10/18/21 13:41 XR chest 1V portable CLINICAL HISTORY: Chest Pain TECHNIQUE: Single frontal radiograph of the chest was obtained. Comparison: Comparison is made to chest radiograph 09/06/2021 FINDINGS: No lines and tubes are seen. The cardiomediastinal silhouette is normal. The lungs are clear. No evidence of pleural effusion or pneumothorax. IMPRESSION: No acute chest disease. ACT 112: Negative or not required by law. Electronically signed by: Primo Nagel M.D. 10/18/2021 2:13 PM ECG Additional Comments: Normal sinus rhythm Possible Left atrial enlargement Incomplete right bundle branch block Inferior infarct (cited on or before 14-AUG-2006) Abnormal ECG When compared with ECG of 21-JUN-2021 14:19, ST no longer elevated in Anterior leads Nonspecific T wave abnormality now evident in Anterior leads Code Status & VTE Plan Code Status Full code Supervising Physician Co-Signing Physician Notes Patient was seen and examined independently at bedside. Chart reviewed. Case discussed with Brunilda ZHANG and agree with the documentation above. In summary, this is a 51 year old female with h/o DM, HTN, prior smoker who presented to the ED for evaluation of left chest pain that started this morning, radiating to left arm, lasting for about 20 min and gradually improving with baby aspirin and rest. Had stress test 3 years back and was negative. Currently chest pain free. AAO, sitting comfortably in bed, chest clear, heart sounds normal, abd benign, no edema. Agree with obs for chest pain rule out, serial trop, tele, repeat EKG, and stress test in am if tele, trop, EKG negative. NPO after midnight. Rest as per the note above. (1) Chest pain Chest pain type: unspecified Qualified Code(s): R07.9 - Chest pain, unspecified (2) HTN (hypertension) Hypertension type: primary hypertension Qualified Code(s): I10 - Essential (primary) hypertension
--- NOTE | 2021-10-18 18:33 | Emergency Department Note ---
History of Present Illness General Chief Complaint: Chest Pain Stated Complaint: CHEST ARM,LEFT ARM PAIN,NAUSEA Time Seen by Provider: 10/18/21 13:41 History of Present Illness Provider Complaint: chest pain Time: 11:00 Duration: constant Onset: during rest Pain Location: left chest Pain Radiation: none Severity: moderate Maximum Pain Intensity: 8 Current Pain Intensity: 8 Quality: + heaviness, + dull and + other (stabbing) Relieved By: + nothing Exacerbated By: + nothing Context: no recent illness, no recent surgery, no recent immobilization, no recent travel, no trauma/injury, no new medications or no history of DVT/PE Associated symptoms: no vomiting, no diaphoresis, no dyspnea, no syncope, no palpitations, no fever, no cough or no leg swelling Treatments prior to arrival: none Home Medications Medication Instructions Recorded Confirmed Type omeprazole 40 mg capsule,delayed 40 mg PO QAM 07/15/19 09/06/21 History release famotidine 20 mg tablet (Pepcid) 20 mg PO BID 08/26/19 09/06/21 History albuterol sulfate 90 mcg/actuation 2 puff inhalation Q4H PRN 02/28/20 09/06/21 History aerosol inhaler Shortness Of Breath aspirin 81 mg tablet,delayed 81 mg PO QAM #30 tabs 02/29/20 09/06/21 Rx release buspirone 5 mg tablet 5 mg PO BID 08/03/20 09/06/21 History magnesium oxide 400 mg (241.3 mg 400 mg PO QAM 08/23/20 09/06/21 History magnesium) tablet sertraline 100 mg tablet 200 mg PO HS 01/09/21 09/06/21 History lisinopril 20 mg tablet 20 mg PO QAM #30 tabs 03/27/21 09/06/21 Rx hydrochlorothiazide 12.5 mg tablet 12.5 mg PO QAM 04/20/21 09/06/21 History lorazepam 0.5 mg tablet 0.5 mg sublingual DAILY PRN Anxiety 06/17/21 09/06/21 History ondansetron 4 mg disintegrating 4 mg translingual Q8H PRN nausea 06/17/21 09/06/21 History tablet and vomiting metformin 500 mg tablet 500 mg PO BID 09/06/21 09/06/21 History Allergies Allergy/AdvReac Type Severity Reaction Status Date / Time diphenhydramine AdvReac Intermediate Vomiting Verified 09/06/21 13:05 [From Benadryl] hydromorphone AdvReac Intermediate LIGHTHEADED Verified 09/06/21 13:05 AND VOMITING Past Med/Surg History Medical History Abnormal MRI, spine "[facility] 08/11/15 - indeterminate lesions T 12 and L1" Depression Diverticulosis Gastritis "per EGD 2013" GERD (gastroesophageal reflux disease) HTN (hypertension) Migraine headache Psoriasiform dermatitis Steatohepatitis Surgical History History of hysterectomy History of incisional hernia repair Hx of cholecystectomy Status post tonsillectomy Status post tubal ligation Family History Mother Stroke Father Pancreatic cancer Sister Hypertension Social History Smoking Status: Former smoker Tobacco Type: Cigarettes Hx Alcohol Use: No Hx Substance Use: No Preferred Language: French Communication Ability: Effective 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 Required: No Beliefs That Will Affect Care: None marital status: Current Living Situation: Spouse current occupational status: employed Feels Safe at Home: Yes Assistive Devices: None Review of Systems A total of 10 systems reviewed and were otherwise negative Physical Exam Vital Signs Vital Signs - 24 hr 10/18/21 13:23 10/18/21 13:50 10/18/21 13:50 Temperature 36.6 C Temperature Source Temporal Artery Scan Pulse Rate 72 78 Pulse Rate [Apical] Pulse Rate from SpO2 Sensor Pulse Rhythm [Apical] Pulse Strength [Apical] Respiratory Rate 16 Respiratory Effort / Characteristics Respiratory Depth Respiratory Pattern Blood Pressure 162/89 H Blood Pressure [Right Arm] Blood Pressure Mean 113 Blood Pressure Mean [Right Arm] Blood Pressure Position [Right Arm] Pulse Oximetry 98 96 96 Oxygen Delivery Method Room Air Sepsis Recent Fever Within 48 Hours No Sepsis New/Unexplained Change in Mental Status No Sepsis Action Taken by Nursing No Action Required 10/18/21 14:00 10/18/21 14:10 10/18/21 14:20 Temperature Temperature Source Pulse Rate 82 69 Pulse Rate [Apical] Pulse Rate from SpO2 Sensor 82 70 Pulse Rhythm [Apical] Pulse Strength [Apical] Respiratory Rate 18 22 20 Respiratory Effort / Characteristics Respiratory Depth Normal Respiratory Pattern Blood Pressure Blood Pressure [Right Arm] 159/91 H Blood Pressure Mean Blood Pressure Mean [Right Arm] 113 Blood Pressure Position [Right Arm] Pulse Oximetry 93 95 95 Oxygen Delivery Method Sepsis Recent Fever Within 48 Hours Sepsis New/Unexplained Change in Mental Status Sepsis Action Taken by Nursing 10/18/21 15:48 10/18/21 16:50 Temperature Temperature Source Pulse Rate Pulse Rate [Apical] 65 62 Pulse Rate from SpO2 Sensor Pulse Rhythm [Apical] Regular Regular Pulse Strength [Apical] Normal Normal Respiratory Rate 20 18 Respiratory Effort / Characteristics Non-Labored Spontaneous Non-Labored Spontaneous Respiratory Depth Normal Normal Respiratory Pattern Regular Regular Blood Pressure Blood Pressure [Right Arm] 145/84 H 126/63 Blood Pressure Mean Blood Pressure Mean [Right Arm] 104 84 Blood Pressure Position [Right Arm] Sitting Sitting Pulse Oximetry 97 97 Oxygen Delivery Method Room Air Room Air Sepsis Recent Fever Within 48 Hours Sepsis New/Unexplained Change in Mental Status Sepsis Action Taken by Nursing Physical Exam GENERAL: She is oriented to person, place, and time. She appears well-developed and well-nourished. She does not appear distressed. HENT: Exam performed. -Head: Normocephalic and atraumatic. -Right Ear: External ear normal. No mastoid tenderness. -Left Ear: External ear normal. No mastoid tenderness. -Mouth/Throat: The oropharynx is clear and moist. No trismus in the jaw. No dental abscesses or uvula swelling. No oropharyngeal exudate or tonsillar abscesses. EYES: Conjunctivae and EOM are normal. Pupils are equal, round, and reactive to light. Right eye exhibits no discharge. Left eye exhibits no discharge. No scleral icterus. NECK: Normal range of motion. Neck supple. No JVD present. No spinous process tenderness present. No carotid bruit present. No rigidity. No tracheal deviation and normal range of motion present. No Brudzinski's sign and no Kernig's sign noted. CV: Normal rate, regular rhythm, normal heart sounds and intact distal pulses. There is no peripheral edema. Palpable radial pulses bue. PULM/CHEST: Effort normal and breath sounds normal. No respiratory distress. No stridor. She has no wheezes. She has no rales. -Chest Wall: She exhibits no tenderness. ABD: The abdomen is soft. Bowel sounds are normal. She has no distension. No mass is present. There is no tenderness. There is no rebound, no guarding, no Turner's sign and no tenderness at McBurney's point. Rovsig negative MUSC/SKEL: Normal range of motion. There is no peripheral edema, tenderness or deformity. LYMPH: No cervical adenopathy. NEURO: She is alert and oriented to person, place, and time. She has normal strength. No cranial nerve deficit or sensory deficit. Coordination and gait n ormal. GCS eye subscore is 4. GCS verbal subscore is 5. GCS motor subscore is 6. Cerebellar tests wnl. SKIN: Skin is warm and dry. She is not diaphoretic. PSYCH: She has a normal mood and affect. Behavior is normal. Judgment and thought content normal. Course Course 1341: The patient was evaluated in room B5. A complete history and physical exam was performed Cardiac monitoring: An order was placed for continuous cardiac monitoring. The monitor shows a rate of 80 with sinus rhythm 1440: Nursing reports to me that the patient reports her chest pain completely resolved after receiving 1 sublingual nitroglycerin. On reassessment the patient states that her pain is completely resolved 0 out of 10. No difficulty breathing. 1540: Vital signs stable. Labs and imaging within normal limits. [facility]. Administered Medications Discontinued Medications Aspirin (Aspirin Chew 324 Mg) 324 mg PO NOW STA Stop: 10/18/21 13:42 Last Admin: 10/18/21 13:47 Dose: 324 mg Documented By: ALAN Sodium Chloride (Nss 1000ml) 1,000 mls @ 999 mls/hr IV .Q1H1M ONE Stop: 10/18/21 14:48 Last Infusion: 10/18/21 14:53 Dose: 0 mls/hr Documented By: Admin: 10/18/21 13:53 Dose: 999 mls/hr Documented By: ALAN Nitroglycerin (Nitroglycerin Sl 0.4 Mg/Tab Tab) 0.4 mg SL NOW STA Stop: 10/18/21 13:49 Last Admin: 10/18/21 13:55 Dose: 0.4 mg Documented By: ALAN Medical Decision Making Laboratory Data Result diagrams: 10/18/21 13:50 10/18/21 13:50 Labs: Lab Results 10/18/21 10/18/21 10/18/21 Range/Units 13:50 13:50 13:50 WBC 6.13 (4.8-10.8) K/ul RBC 4.91 (3.93-5.22) M/uL Hgb 14.1 (12.0-16.0) g/dl Hct 42.3 (34.1-44.9) % MCV 86.2 (80.0-100.0) fL MCH 28.7 (25.0-34.0) pg MCHC 33.3 (32.0-36.0) g/dL RDW Std Deviation 41.5 (36.4-46.3) fL RDW Coeff of Delia 13.3 (11.5-14.5) % Plt Count 222 (130-400) K/uL MPV 10.3 (9.4-12.3) fL Immature Gran % (Auto) 0.5 % Neut % (Auto) 68.7 % Lymph % (Auto) 24.8 % Walton % (Auto) 4.2 % Eos % (Auto) 1.3 % Baso % (Auto) 0.5 % Neut # (Auto) 4.21 (1.4-6.5) K/uL Lymph # (Auto) 1.52 (1.2-3.4) K/uL Walton # (Auto) 0.26 (0.24-0.82) K/uL Eos # (Auto) 0.08 (0-0.50) K/uL Baso # (Auto) 0.03 (0-0.2) K/uL Immature Gran # (Auto) 0.03 H (0.00-0.02) K/uL PT 10.3 (9.0-12.0) Seconds INR 1.0 (0.9-1.1) APTT 25.4 (21.0-31.0) Seconds PTT Ratio 0.9 Sodium 140 (136-145) mmol/L Potassium 3.8 (3.5-5.1) mmol/L Chloride 106 (98-107) mmol/L Carbon Dioxide 28 (21-32) mmol/L Anion Gap 6 (3-11) BUN 16 (6-23) mg/dl Creatinine 1.02 (0.6-1.2) mg/dl Est Cr Clr Drug Dosing 80.2 ml/min Est GFR ( Amer) 73.8 ml/min Est GFR (Non-Af Amer) 63.6 ml/min BUN/Creatinine Ratio 15.7 (10-20) Glucose 135 H (70-99(Fasting)) mg/dl Calcium 9.3 (8.5-10.1) mg/dl Troponin I High Sens 4.2 (0-14) pg/ml Lipase 39 (11-82) U/L SARS-CoV-2, RNA, NAAT (NEGATIVE) 10/18/21 Range/Units 15:43 WBC (4.8-10.8) K/ul RBC (3.93-5.22) M/uL Hgb (12.0-16.0) g/dl Hct (34.1-44.9) % MCV (80.0-100.0) fL MCH (25.0-34.0) pg MCHC (32.0-36.0) g/dL RDW Std Deviation (36.4-46.3) fL RDW Coeff of Delia (11.5-14.5) % Plt Count (130-400) K/uL MPV (9.4-12.3) fL Immature Gran % (Auto) % Neut % (Auto) % Lymph % (Auto) % Walton % (Auto) % Eos % (Auto) % Baso % (Auto) % Neut # (Auto) (1.4-6.5) K/uL Lymph # (Auto) (1.2-3.4) K/uL Walton # (Auto) (0.24-0.82) K/uL Eos # (Auto) (0-0.50) K/uL Baso # (Auto) (0-0.2) K/uL Immature Gran # (Auto) (0.00-0.02) K/uL PT (9.0-12.0) Seconds INR (0.9-1.1) APTT (21.0-31.0) Seconds PTT Ratio Sodium (136-145) mmol/L Potassium (3.5-5.1) mmol/L Chloride (98-107) mmol/L Carbon Dioxide (21-32) mmol/L Anion Gap (3-11) BUN (6-23) mg/dl Creatinine (0.6-1.2) mg/dl Est Cr Clr Drug Dosing ml/min Est GFR ( Amer) ml/min Est GFR (Non-Af Amer) ml/min BUN/Creatinine Ratio (10-20) Glucose (70-99(Fasting)) mg/dl Calcium (8.5-10.1) mg/dl Troponin I High Sens (0-14) pg/ml Lipase (11-82) U/L SARS-CoV-2, RNA, NAAT NEGATIVE (NEGATIVE) Imaging Data Chest x-ray: Radiologist's impression: Chest X-Ray 10/18/21 13:41 XR chest 1V portable CLINICAL HISTORY: Chest Pain TECHNIQUE: Single frontal radiograph of the chest was obtained. Comparison: Comparison is made to chest radiograph 09/06/2021 FINDINGS: No lines and tubes are seen. The cardiomediastinal silhouette is normal. The lungs are clear. No evidence of pleural effusion or pneumothorax. IMPRESSION: No acute chest disease. ACT 112: Negative or not required by law. Electronically signed by: Primo Nagel M.D. 10/18/2021 2:13 PM ECG Data Indication: chest pain Rate (beats per minute): 69 Rhythm: normal sinus Findings: no ST depression, no ST elevation or no prolonged QT Additional Comments: QRS 72 MDM Narrative 1341: The patient was evaluated in room B5. A complete history and physical exam was performed Cardiac monitoring: An order was placed for continuous cardiac monitoring. The monitor shows a rate of 80 with sinus rhythm 1440: Nursing reports to me that the patient reports her chest pain completely resolved after receiving 1 sublingual nitroglycerin. On reassessment the patient states that her pain is completely resolved 0 out of 10. No difficulty breathing. 1540: Vital signs stable. Labs and imaging within normal limits. Patient be admitted to the [facility] hospitalist team for chest pain rule out ACS. Impression & Plan Chest pain Discharge Plan Visit Data Chief Complaint: Chest Pain Stated Complaint: CHEST ARM,LEFT ARM PAIN,NAUSEA ED Provider: Efren Deleon Discharge Problem: Chest pain Patient Disposition: Being Evaluated by Hospitalist Forms Stand Alone Forms: [facility] [employer] Prescriptions Prescriptions: No Action famotidine [Pepcid] 20 mg Tablet 20 mg PO BID omeprazole 40 mg Capsule,Delayed Release(Dr/Ec) 40 mg PO QAM albuterol sulfate 90 mcg/actuation HFA aerosol inhaler 2 puff INHALATION Q4H PRN (Reason: Shortness Of Breath) aspirin 81 mg Tablet,Delayed Release (Dr/Ec) 81 mg PO QAM Qty: 30 2RF Rx Instructions: Always take with a full stomach sertraline 100 mg tablet 200 mg PO HS buspirone 5 mg tablet 5 mg PO BID magnesium oxide 400 mg (241.3 mg magnesium) tablet 400 mg PO QAM lisinopril 20 mg Tablet 20 mg PO QAM Qty: 30 0RF hydrochlorothiazide 12.5 mg tablet 12.5 mg PO QAM lorazepam 0.5 mg tablet 0.5 mg sublingual DAILY PRN (Reason: Anxiety) ondansetron 4 mg tablet,disintegrating 4 mg translingual Q8H PRN (Reason: nausea and vomiting) metformin 500 mg tablet 500 mg PO BID Referrals Referrals: Bruno Lincoln MD [Primary Care Provider] -
[2021-10-18] MEDS ORDERED: CARBOHYDRATES FOR HYPOGLYCEMIA PO PRN (20:32)
[2021-10-18] MEDS ORDERED: ACETAMINOPHEN 325 MG TAB PO PRN (20:32)
[2021-10-18] MEDS ORDERED: GLUCOSE 40% GEL 15 GM TUBE PO PRN (20:32)
[2021-10-18] MEDS ORDERED: DEXTROSE 50% 50 ML SYRINGE IV PRN (20:32)
[2021-10-18] MEDS ORDERED: GLUCAGON FOR INJ 1 MG VIAL SQ PRN (20:32)
[2021-10-18] MEDS ORDERED: ONDANSETRON INJ 2 MG/ML 2 ML VIAL IV PRN (20:32)
[2021-10-18] MEDS ORDERED: GLUCOSE 10 TAB/TUBE PO PRN (20:32)
[2021-10-18] MEDS: INSULIN ASPART PER UNIT SC SCH (22:06)
[2021-10-18] MEDS: HEPARIN SOD 5,000 UNIT/0.5 ML VIAL SQ SCH (22:06)
[2021-10-19] MEDS: HEPARIN SOD 5,000 UNIT/0.5 ML VIAL SQ SCH ×2 (05:42→13:30)
[2021-10-19 07:30] LABS: Basophils # (auto) 0.03 K/uL (0-0.2); Basophils % (auto) 0.7 %; Eosinophils # (auto) 0.07 K/uL (0-0.50); Eosinophils % (auto) 1.5 %; Hematocrit (blood only) 38.1 % (34.1-44.9); Hemoglobin 12.8 g/dl (12.0-16.0); Immature Granulocytes # (auto) 0.02 K/uL (0.00-0.02); Immature Granulocytes % (auto) 0.4 %; Lymphocytes # (auto) 1.44 K/uL (1.2-3.4); Lymphocytes % (auto) 31.7 %; Mean Corpuscular Hemoglobin 28.6 pg (25.0-34.0); Mean Corpuscular Hgb Conc 33.6 g/dL (32.0-36.0); Monocytes # (auto) 0.25 K/uL (0.24-0.82); Monocytes % (auto) 5.5 %; Neutrophils # (auto) 2.73 K/uL (1.4-6.5); Neutrophils % (auto) 60.2 %; Platelet Count 181 K/uL (130-400); RDW Coefficient of Variation 13.2 % (11.5-14.5); RDW Standard Deviation 40.8 fL (36.4-46.3); Red Blood Count 4.48 M/uL (3.93-5.22); White Blood Count 4.54 K/ul (4.8-10.8)
[2021-10-19] MEDS: INSULIN ASPART PER UNIT SC SCH ×2 (07:50→12:18)
[2021-10-19 07:52] LABS: Albumin Globulin Ratio 1.3 (0.9-2); Albumin Level 3.6 gm/dl (3.4-5.0); BUN Creatinine Ratio 15.3 (10-20); Bilirubin,Total 0.5 mg/dl (0.2-1.0); Calcium 8.7 mg/dl (8.5-10.1); Creatinine Clr Calc Pharmacy 83.7 ml/min; Est GFR (African American) 77.4 ml/min; Est GFR (Non-African American) 66.8 ml/min; Globulin 2.8 gm/dl (2.5-4.0); Total Protein 6.4 gm/dl (6.0-8.3)
[2021-10-19] MEDS ORDERED: ATROPINE SULFATE 0.1 MG/ML 10ML SYR IV ONE (09:17)
[2021-10-19] MEDS ORDERED: METOPROLOL TARTRATE 1 MG/ML VIAL IV ONE (09:17)
[2021-10-19] MEDS ORDERED: DOBUTamine HCL 12.5 MG/ML 20 ML VIAL IV ONE (09:17)
[2021-10-19] MEDS ORDERED: NITROGLYCERIN SL 0.4 MG/TAB TAB ONE (09:18)
--- NOTE | 2021-10-19 12:49 | Discharge Summary ---
Date of Service October 19, 2021 Admission HPI Per Admitting Provider This is 51 yo F with PMHx of HTN, fatty liver, depression with anxiety, GERD, and obesity with BMI of 40.0 who presents with acute onset of chest pain. Reports that this started around 11 AM this morning and her left side with associated shortness of breath and radiation of sharp stabbing pain into her left arm and up into the left side of her neck. She notes that it lasted about 20 to 25 minutes and she took a baby aspirin during this timeframe which seemed to improve her symptoms. Other associated symptoms include nausea but no vomiting diaphoresis. She is unsure if she was having a panic attack at this p oint in time but had not been under any stressful situation and to incite this type of response. She previously had similar presentation of chest/heart pain about 3 years ago where she underwent a dobutamine stress test here at this hospital. The results of it were negative and she did not require any further intervention. Since then she has not seen a sed special education teacher. She follows locally with [place] [facility] ([facility]) due to insurance issues. Recently she has been working with them to get dental care due to poor dentition, but she denies any recent fevers chills or sweats or local infections requiring antibiotics. Patient has been taking all her medications as prescribed and did take routinely scheduled medications earlier this morning. Admission Exam Per Admitting Provider Constitutional: WD/AT, + obese with BMI of 40.0 Eyes: PERRL, EOMI ENT: hearing grossly normal, mucous membranes are moist, upper denture plate, poor dentition of lower jaw Respiratory: On room air, no respiratory distress, lungs clear, no adventitious breath sounds, no accessory muscle use Cardiovascular: Pain with palpation of the chest wall, RRR no MRGs, peripheral pulses intact Abdomen: NABS x 4, nondistended, nontender, no organomegaly Extremities: Non-tender, no pedal edema, no calf tenderness with palpation Neurologic: AAO x 3, CN II-XII intact, no motor weakness Psychiatric: Normal mood and affect Skin: normal color, warm/dry, no rash Principal Diagnosis Chest pain rule out ACS Discharge Exam GENERAL: Alert and oriented x3. NAD, on RA. Obese. HEENT: No pallor, no icterus. Pupils equal, round and reactive to light. Oral mucosa moist. NECK: No JVD, no neck masses. HEART: S1 and S2 heard. Regular rate and rhythm. No murmur, no gallop. RESPIRATORY SYSTEM: Normal AP diameter. No accessory muscle use. No wheezing, no crackles. ABDOMEN: Soft, bowel sounds present, nontender, no distention. CENTRAL NERVOUS SYSTEM: No facial droop. Speech is clear. Obeys simple commands. Moves extremities. EXTREMITIES: No edema, no erythema seen. Discharge Data Allergies Allergy/AdvReac Type Severity Reaction Status Date / Time diphenhydramine AdvReac Intermediate Vomiting Verified 09/06/21 13:05 [From Benadryl] hydromorphone AdvReac Intermediate LIGHTHEADED Verified 09/06/21 13:05 AND VOMITING Consultations 10/18/21 15:37 ED Decision to Admit Stat Hospital Course (1) Chest pain: Plan 51-year-old lady with PMH of HTN, fatty liver, depression with anxiety, GERD and obesity with BMI of 40.0 presented to our ED 10/18 with acute onset of chest pain. Patient had similar chest pain around 3 years ago and a stress test back then was negative. Troponin trends this admission was negative. Admitting EKG and follow-up EKG next day without acute ST or T changes. She underwent stress test which was also negative for any inducible ischemia. Discussed with cardiology on-call, cleared for discharge from cardiac point of view. She is being discharged home with following instruction at the point of discharge: You have been admitted for likely cardiac origin chest pain, your heart enzyme trends/EKG and stress test were normal and hence cardiac chest pain is ruled out. You can continue to take your home famotidine and omeprazole as prior. Follow-up with your primary care physician within a week time. Take your medications as prescribed. Total Time Total Time Spent Total Time Spent (In Minutes): 35 Discharge Plan Discharge Items Patient Disposition: Home - Self-Care Reason For Visit: CHEST PAIN Discharge Diagnosis: chest pain, ruled out ACS Activity: Resume your previous activity Non-emergency contact: Primary Care Provider Call non-emergency contact if: you have any medication questions and your temperature is above 101 Follow-up/Referrals: Bruno Lincoln MD [Primary Care Provider] - Diet: Carb Consistent or DM2 and Heart Healthy Addtl Attending Provider Instructions: You have been admitted for likely cardiac origin chest pain, your heart enzyme trends/EKG and stress test were normal and hence cardiac chest pain is ruled out. You can continue to take your home famotidine and omeprazole as prior. Follow-up with your primary care physician within a week time. Take your medications as prescribed. Pending Studies at Discharge: No Stand-Alone Forms: [facility], Smoking Cessation Medications and DC Order Prescriptions: Continued famotidine [Pepcid] 20 mg Tablet 20 mg PO BID omeprazole 40 mg Capsule,Delayed Release(Dr/Ec) 40 mg PO QAM albuterol sulfate 90 mcg/actuation HFA aerosol inhaler 2 puff INHALATION Q4H PRN (Reason: Shortness Of Breath) aspirin 81 mg Tablet,Delayed Release (Dr/Ec) 81 mg PO QAM Qty: 30 2RF Rx Instructions: Always take with a full stomach sertraline 100 mg tablet 200 mg PO HS buspirone 5 mg tablet 5 mg PO BID magnesium oxide 400 mg (241.3 mg magnesium) tablet 400 mg PO QAM lisinopril 20 mg Tablet 20 mg PO QAM Qty: 30 0RF hydrochlorothiazide 12.5 mg tablet 12.5 mg PO QAM lorazepam 0.5 mg tablet 0.5 mg sublingual DAILY PRN (Reason: Anxiety) ondansetron 4 mg tablet,disintegrating 4 mg translingual Q8H PRN (Reason: nausea and vomiting) metformin 500 mg tablet 500 mg PO BID Discharge Orders: Discharge Order (Routine); Ordered 10/19/21 Ordered By: Tres Ramirez/Other Patient Handouts: High Blood Sugar (Hyperglycemia), Managing Type 2 Diabetes Admission Data Admit Date/Time: 10/18/21 16:54 Attending Provider: Tres Lion Admit Provider: Stanislaw Davies Primary Care Provider: Bruno Lincoln Other Providers: Stanislaw Davies
--- NOTE | 2021-10-19 18:03 | Electrocardiogram Report ---
Test Reason : Blood Pressure : / mmHG Vent. Rate : 063 BPM Atrial Rate : 063 BPM P-R Int : 194 ms QRS Dur : 074 ms QT Int : 434 ms P-R-T Axes : 040 023 074 degrees QTc Int : 444 ms Normal sinus rhythm with sinus arrhythmia Low voltage QRS Borderline ECG When compared with ECG of 18-OCT-2021 13:35, No significant change was found Confirmed by Laurent Matute ([id number]) on 10/19/2021 6:02:56 PM Referred By: REFERRED SELF Confirmed By:Demetrius Matute
== END 2021-10-19 15:20 | disposition home or self-care (01) ==
LOC: ED 13:22 → 2S 13:22 → SUATTDRO 16:54 → 2S 19:01